=== PATIENT | male | born 2000 | race Caucasian/White ===

== ENCOUNTER 2022-06-17 07:57 | Outpatient (CLI) | payer BC, SELFPAY ==
--- OUTSIDE RECORDS SUMMARY | 2022-06-17 07:55 | XMS_ITS | Encounter Summary ---
:2000 Author Organization [facility] Address [address] [place] [address] Care Team Providers Name Role Phone Unavailable Primary Care Provider Unavailable Encounter Details Date Type Department Care Team Description 12/16/2010 Hospital Encounter HX [facility] Minesh Matute M.D. [address] [place], [place] [address] (Wo rk) Social History Tobacco Use Types Packs/Day Years Used Date Smoking Tobacco: Never Assessed Sex Assigned at Date Recorded Not on file documented as of this encounter Plan of Treatment Not on filedocumented as of this encounter Visit Diagnoses Not on filedocumented in this encounter
--- OUTSIDE RECORDS SUMMARY | 2022-06-17 07:55 | XMS_ITS | Encounter Summary ---
:2000 Author Organization [facility] Address [address] [place] [address] Care Team Providers Name Role Phone Unavailable Primary Care Provider Unavailable Encounter Details Date Type Department Care Team Description 08/22/2014 Hospital Encounter HX [facility] Mary Matute M.D. [address] [place], [place] [address] (Wo rk) Social History Tobacco Use Types Packs/Day Years Used Date Smoking Tobacco: Never Assessed Sex Assigned at Date Recorded Not on file documented as of this encounter Last Filed Vital Signs Vital Sign Reading Time Taken Comments Blood Pressure - - Pulse - - Temperature - - Respiratory Rate - - Oxygen Saturation - - Inhaled Oxygen Concentration - - Weight 53.5 kg (117 lb 15.1 oz) 08/22/2014 3:10 PM VICE PRESIDENT INVESTOR RELATIONS Height 151 cm (4' 11.45) 08/22/2014 3:10 PM VICE PRESIDENT INVESTOR RELATIONS Body Mass Index 23.46 08/22/2014 3:10 PM VICE PRESIDENT INVESTOR RELATIONS Body Mass Index Percentile 94.04 % 08/22/2014 3:10 PM CS T Growth Chart: CDC (Boys, 2-20 Years) documented in this encounter H&P Notes Milady Matute M.D. - 08/22/2014 2:58 PM CST [id number] CHIEF COMPLAINT/REASON FOR VISIT A 13-year-old well-child check. HISTORY OF PRESENT ILLNESS Tahmina is 13 years old here with his mother today for a checkup. It has been over 3 years since we last saw him and overall he is healthy. Mom voices no concerns. I asked about glasses which he has had in the past. Apparently, he just stopped using them and has not been back to see the eye doctor in a long time. Tahmina does have very dry skin. This is a chronic problem. Mom buys lotion for him, but he does not use it all the time. Teeth are brushed, though not well. He does have an appointment with a dentist coming up later this month. He complains that his teeth hurt when he brushes them. Tahmina likes to be outside, but not when it is cold outside. He is not involved in any extracurricular activities. Mom feels that his diet is healthy. He does not drink much soda. They do not eat out very often. MEDICATIONS None. ALLERGIES No known drug allergies. SYSTEMS REVIEW Positive for that mentioned in the history of present illness and past medical history. All other systems reviewed and were negative. DEVELOPMENT: Pediatric symptom checklist completed today with a normal score of 6. VISION SCREENING: Right eye 20/20, left eye 20/30. HEARING SCREENING: Passed bilaterally. Please see EMR for details. PAST MEDICAL/SURGICAL HISTORY 1. Astigmatism. He had been wearing eyeglasses when I saw him in 2010. 2. Obesity. 3. He has been treated with bronchodilators in the past, but it has been a very long time. SOCIAL HISTORY Lives with his parents and 2 siblings in a nonsmoking home. He is in 6th grade at [employer] and does okay in school. FAMILY HISTORY Thyroid disease on mom's side of the family. Maternal grandfather is . Both grandmothers have diabetes. His sister has asthma. VITAL SIGNS Please see EMR. BMI is at the 94th percentile. PHYSICAL EXAMINATION GENERAL: A 13-year-old male who appears age appropriate. SKIN: Very dry skin all over his body. HEAD: Normocephalic. EYES: Conjunctivae noninjected; sclerae anicteric; lids without ptosis, edema or erythema; extraocular movements intact; pupils equal, round and reactive to light. Symmetric light reflex; normal fundi. ENT: Tympanic membranes betancourt, with good light reflex. Nose clear. Palate is complete. Dentition normal for age. Tonsils small and non-inflamed bilaterally. MOUTH: He has poor dental hygiene noted with some swelling and erythema of the gums especially on the bottom. LYMPH NODES: No significant lymphadenopathy. BREASTS: Mild gynecomastia noted. THYROID: No thyromegaly. PERIPHERAL PULSES: Normal pulses and perfusion. HEART: Regular rate and rhythm. Normal S1 and S2. No murmurs, gallops or rubs. LUNGS: Unlabored respirations; clear breath sounds; no wheezes, crackles, rales, rhonchi or retractions. ABDOMEN: Soft, without organomegaly. Bowel sounds normal. Nontender without rebound. No masses palpable. No distention. GENITALIA: Uncircumcised. Sexual maturity rating 2. SPINE: Straight with no lesions. JOINTS: Full range of motion about all joints. EXTREMITIES: No clubbing, cyanosis or edema. Normal upper and lower extremities. GAIT: No limp. Normal gait. MENTAL: Alert and oriented, in no distress. Appropriate for age. NEUROLOGICAL: Normal reflexes; normal tone; no focal deficits appreciated. Cranial nerves II-XII intact. IMPRESSION/REPORT/PLAN Health maintenance. We did discuss age-appropriate anticipatory guidance and safety issues. [place] received today hepatitis A #2, Tdap booster, Menactra #1, HPV #1 and flu vaccine. I encouraged them to make an appointment to see his eye doctor. He may need glasses again. We also did discuss his weight.He is falling into the overweight range today. I encouraged physical activity and discussed good dietary habits. Annual physical exam is recommended. Milady Matute M.D./cruz Electronically Signed By: MILADY MATUTE MD On: 08/23/2014 11:59 AM Source: [facility] [email or web address] Document Id: [id number] PRESIDENT INVESTOR RELATIONS documented in this encounter Procedure Notes Lisa Baeza L.PRussellNRussell - 08/22/2014 4:22 PM CST Vision Testing Vision Testing Entered On: 08/22/2014 16:22 VICE PRESIDENT INVESTOR RELATIONS Performed On: 08/22/2014 16:22 VICE PRESIDENT INVESTOR RELATIONS by LISA BAEZA LPN Vision Testing Corrective Lenses : None Eye, Right w/o Correction : 20/20 Eye, Left w/o Correction : 20/30 LISA BAEZA LPN - 08/22/2014 16:22 VICE PRESIDENT INVESTOR RELATIONS Source: [facility] POWERCHART Document Id: [id number] VICE PRESIDENT INVESTOR RELATIONS!5 PRESIDENT INVESTOR RELATIONS Lisa Baeza L.P.N. - 08/22/2014 4:21 PM CST Hearing Point of Care Testing - Audiometer Hearing Point of Care Testing - Audiometer Entered On: 08/22/2014 16:22 VICE PRESIDENT INVESTOR RELATIONS Performed On: 08/22/2014 16:21 VICE PRESIDENT INVESTOR RELATIONS by LISA BAEZA LPN Hearing Point of Care Testing - Audiometer Left Ear Hearing POC Test Grid Left Ear 20 db Left Ear 25 db Left Ear 30 db Left Ear 40 db 500 Hz : Response Response Response Response 1000 Hz : Response Response Response Response 2000 Hz : Response Response Response Response 4000 Hz : Response Response Response Response LISA BAEZA LPN - 08/22/2014 16:21 VICE PRESIDENT INVESTOR RELATIONS LISA BAEZA LPN - 08/22/2014 16:21 VICE PRESIDENT INVESTOR RELATIONS LISA BAEZA LPN - 08/22/2014 16:21 VICE PRESIDENT INVESTOR RELATIONS LISA BAEZA LPN - 08/22/2014 16:21 VICE PRESIDENT INVESTOR RELATIONS Right Ear Hearing POC Test Grid Right Ear 20 db Right Ear 25 db Right Ear 30 db Right Ear 40 db 500 Hz : Response Response Response Response 1000 Hz : Response Response Response Response 2000 Hz : Response Response Response Response 4000 Hz : Response Response Response Response LISA BAEZA LPN - 08/22/2014 16:21 VICE PRESIDENT INVESTOR RELATIONS LISA BAEZA LPN - 08/22/2014 16:21 VICE PRESIDENT INVESTOR RELATIONS LISA BAEZA LPN - 08/22/2014 16:21 VICE PRESIDENT INVESTOR RELATIONS LISA BAEZA LPN - 08/22/2014 16:21 VICE PRESIDENT INVESTOR RELATIONS Source: [facility] POWERCHART Document Id: [id number] VICE PRESIDENT INVESTOR RELATIONS!44 PRESIDENT INVESTOR RELATIONS documented in this encounter Miscellaneous Notes Miscellaneous - Milady Matute M.D. - 08/22/2014 3:38 PM CST Ambulatory Patient Summary [address] [id number] Visit Information Name: TAHMINA CORONADO [facility] Number: [id number] Current Date: 08/22/2014 15:38:24 Physicians Attending Provider: MILADY MATUTE MD Primary Care Provider: PCP, RORY TAHMINA CORONADO has been given the following list of follow-up instructions, medication list, and patient education materials: Follow-up Instructions Your Medications Here is a list of your medications. It is important to take your medications as directed. Use a pillbox or chart to help remind you to take your medications. Please let your doctor or nurse know if you have problems taking your medications. Medication/Strength How to Take Indications/Special Instructions/Comments/Notes for Patient Medication Changes/Routing Stop Taking the Following Medications: diphenhydrAMINE (Benadryl 12.5 mg/5 mL oral LIQ) hydrocortisone topical (hydrocortisone topical 2.5% ointment) Medication list as of 08-22-14 15:38 Attention: If you have any medications at home that are not on this list, DO NOT take them until youcontact your provider for clarification. Give a copy of your medication list to your primary care provider. Update your medication list any time medications or doses are changed and carry your medication list at all times in case of emergency. Electronically Signed By: MILADY MATUTE MD Signed On:22-AUG-2014 15:38:21 Your Allergies & Intolerances Substance Reaction Symptoms Category Comments No Known Allergies Drug Your Problem List Problem Status Onset Comments Obesity NOS Active Low vision NOS Active 11/11/2010 Abnormal thyroid function study Active 11/18/2010 Eczema Active 12/19/2010 Your Upcoming Appointments Date Time Location Provider No Appointments found Attention: Contact your local Clinic if further appointment detail needed. Your Goals/Additional instructions: Source: [facility] POWERCHART Document Id: [id number] PRESIDENT INVESTOR RELATIONS Miscellaneous - Milady Matute M.D. - 08/22/2014 3:38 PM CST Ambulatory Discharge Medication List [address] [place] [id number] Visit Information Name: TAHMINA CORONADO [facility] Number: [id number] Visit Date: 08/22/2014 15:38:23 Attending Provider: MILADY MATUTE MD Primary Care Provider: PCP, RORY TAHMINA CORONADO has been given the following list of medications: Your Medications It is important to take your medications as directed. Use a pill box or chart to help remind you to take your medications. Please let your doctor or nurse know if you have problems taking your medications. Medication/Strength How to Take Indications/Special Instructions/Comments/Notes for Patient Medication Changes/Routing Stop Taking the Following Medications: diphenhydrAMINE (Benadryl 12.5 mg/5 mL oral LIQ) hydrocortisone topical (hydrocortisone topical 2.5% ointment) Medication list as of 08-22-14 15:38 Attention: If you have any medications at home that are not on this list, DO NOT take them until youcontact your provider for clarification. Give a copy of your medication list to your primary care provider. Update your medication list any time medications or doses are changed and carry your medication list at all times in case of emergency. Electronically Signed By: MILADY MATUTE MD Signed On:22-AUG-2014 15:38:21 Additional Information: Source: [facility] POWERCHART Document Id: [id number] PRESIDENT INVESTOR RELATIONS Miscellaneous - Lisa Baeza, L.P.N. - 08/22/2014 3:10 PM CST Pediatric Telephone Service Adviser Intake/History Pediatric Telephone Service Adviser Intake/History Entered On: 08/22/2014 15:13 VICE PRESIDENT INVESTOR RELATIONS Performed On: 08/22/2014 15:10 VICE PRESIDENT INVESTOR RELATIONS by LISA BAEZA LPN Intake Chief Complaint : well child Temperature Core : 36.1 DegC(Converted to: 97.0 DegF) (LOW) Peripheral Pulse Rate : 80 /min Respiratory Rate : 12 /min (<LLOW) Heart Rhythm : Regular Systolic Blood Pressure : 128 mmHg Diastolic Blood Pressure : 70 mmHg NIBP Mean : 89 mmHg BP Location : Left upper extremity Blood Pressure Cuff Size : Regular Height : 151 cm(Converted to: 4 ft 11 inch(es), 59 inch(es)) Actual Weight : 53.5 kg(Converted to: 117 lb 15 oz) Weight Source : Standing scale Dosing Weight Clinic : 53.5 kg Clinic BSA : 1.5 Body Mass Index : 23.46 kg/m2 LISA BAEZA LPN - 08/22/2014 15:10 VICE PRESIDENT INVESTOR RELATIONS General Info Accompanied By : Mother Information Given By : Patient Languages : Liberian, Kyrgyz Is Patient Female and 13-50 no hysterectomy : LISA Durant LPN - 08/22/2014 15:10 VICE PRESIDENT INVESTOR RELATIONS Subjective Pain Symptoms : LISA Durant LPN - 08/22/2014 15:10 VICE PRESIDENT INVESTOR RELATIONS Dependent Habits Tobacco Use/Currently Using : No Exposure to Tobacco Smoke : Care provider denies smoking in home Smoking Status : Never smoker LISA BAEZA LPN - 08/22/2014 15:10 VICE PRESIDENT INVESTOR RELATIONS ID Screen Travel Within Last 21 Days : LISA Durant LPN - 08/22/2014 15:10 VICE PRESIDENT INVESTOR RELATIONS Source: [facility] POWERCHART Document Id: [id number] VICE PRESIDENT INVESTOR RELATIONS!31 PRESIDENT INVESTOR RELATIONS documented in this encounter Plan of Treatment Not on filedocumented as of this encounter Visit Diagnoses Not on filedocumented in this encounter
--- OUTSIDE RECORDS SUMMARY | 2022-06-17 07:55 | XMS_ITS | Encounter Summary ---
:2000 Author Organization [facility] Address [address] [place] [address] Care Team Providers Name Role Phone Unavailable Primary Care Provider Unavailable Encounter Details Date Type Department Care Team Description 07/25/2010 Hospital Encounter [facility] Mary Matute M.D. [address] [place], [place] [address] (Wo rk) Social History Tobacco Use Types Packs/Day Years Used Date Smoking Tobacco: Never Assessed Sex Assigned at Date Recorded Not on file documented as of this encounter Plan of Treatment Not on filedocumented as of this encounter Visit Diagnoses Not on filedocumented in this encounter
--- OUTSIDE RECORDS SUMMARY | 2022-06-17 07:55 | XMS_ITS | Encounter Summary ---
:2000 Author Organization [facility] Address [address] [place] [address] Care Team Providers Name Role Phone Elsewhere, Pcp Primary Care Provider Unavailable Encounter Details Date Type Department Care Team Description 11/19/2014 Historical Ophthalmology [facility] Wisam Narvaez Jr., M.D. [address] [place], [place] [phone] (Wo rk) Social History Tobacco Use Types Packs/Day Years Used Date Smoking Tobacco: Never Assessed Sex Assigned at Date Recorded Not on file documented as of this encounter Progress Notes Wisam Narvaez M.D. - 11/19/2014 4:32 PM CST Eye General CHIEF COMPLAINT Complete Exam HISTORY OF PRESENT ILLNESS Pt states about 2 months ago he noticed that his VA in his right eye is blurry when looking at things in the distance. ROS good general health- heart and lungs WNL IMPRESSION / REPORT / PLAN A) hyperopia, mild, excellent vision, no need for glasses at this time P) RTo 1-2 years CDM Reports - EYEGEN Id: [id number] Status: Fnl documented in this encounter Plan of Treatment Not on filedocumented as of this encounter Visit Diagnoses Not on filedocumented in this encounter Care Teams Child Welfare Worker Relationship Specialty Start Date End Date Elsewhere, Pcp PCP - General 10/23/19 documented as of this encounter
--- OUTSIDE RECORDS SUMMARY | 2022-06-17 07:55 | XMS_ITS | Encounter Summary ---
:2000 Author Organization [facility] Address [address] [place] [address] Care Team Providers Name Role Phone Marilynn Moore M.D. Primary Care Provider Encounter Details Date Type Department Care Team Description 02/10/2019 Hospital Encounter [facility] Social History Tobacco Use Types Packs/Day Years Used Date Smoking Tobacco: Never Sex Assigned at Date Recorded Not on file documented as of this encounter Plan of Treatment Not on filedocumented as of this encounter Visit Diagnoses Not on filedocumented in this encounter Additional Health Concerns Assessment Noted Time PHQ-9 Depression Total Score: 21 12/04/2016 4:02 PM CS T documented as of this encounter Care Teams Guidance Adviser Relationship Specialty Start Date End Date Marilynn Moore M.D. PCP - General 03/18/17 10/22/19 documented as of this encounter
--- OUTSIDE RECORDS SUMMARY | 2022-06-17 07:55 | XMS_ITS | Encounter Summary ---
:2000 Author Organization [facility] Address [address] [place] [address] Care Team Providers Name Role Phone Unavailable Primary Care Provider Unavailable Encounter Details Date Type Department Care Team Description 11/17/2010 Hospital Encounter HX [facility] Minesh Matute M.D. [address] [place], [place] [address] (Wo rk) Social History Tobacco Use Types Packs/Day Years Used Date Smoking Tobacco: Never Assessed Sex Assigned at Date Recorded Not on file documented as of this encounter Plan of Treatment Not on filedocumented as of this encounter Visit Diagnoses Not on filedocumented in this encounter
--- OUTSIDE RECORDS SUMMARY | 2022-06-17 07:55 | XMS_ITS | Encounter Summary ---
:2000 Author Organization [facility] Address [address] [place] [address] Care Team Providers Name Role Phone Unavailable Primary Care Provider Unavailable Encounter Details Date Type Department Care Team Description 06/03/2015 Hospital Encounter HX [facility] Samantha Santos APRN, C.N.P., M.S.N. [address] [place] [phone] (Wo rk) Social History Tobacco Use Types Packs/Day Years Used Date Smoking Tobacco: Never Assessed Sex Assigned at Date Recorded Not on file documented as of this encounter Last Filed Vital Signs Vital Sign Reading Time Taken Comments Blood Pressure - - Pulse - - Temperature - - Respiratory Rate - - Oxygen Saturation - - Inhaled Oxygen Concentration - - Weight 57.9 kg (127 lb 8.6 oz) 06/03/2015 6:52 PM CDT Height - - Body Mass Index - - documented in this encounter Progress Notes Samantha Santos APRN, [employer] - 06/03/2015 6:34 PM CDT [id number] CHIEF COMPLAINT/REASON FOR VISIT Infected insect bites. HISTORY OF PRESENT ILLNESS A very pleasant 14-year-old male presents with Dad. Per patient, family member came over approximately 2 weeks ago with a dog that had fleas that bit patient on feet and ankles. Since then, the sites have been very itchy and have become red and inflamed and hurt. Mild to moderate pain, burning. Per patient, sister had the same problem and sites were infected worse that his and was taken to the doctorand she was prescribed antibiotics. Dad is concerned that his son may need the same treatment. Denies any fever, chills, headache, neck pain, chest pain, shortness of breath, abdominal pain, nausea, vomiting, diarrhea. Severe skin redness with edema, exudate, hardness, and warmth. MEDICATIONS Reviewed. ALLERGIES Reviewed. PAST MEDICAL/SURGICAL HISTORY See EMR. SOCIAL HISTORY The child has never smoked and lives in a nonsmoking home. No drugs. No alcohol. FAMILY HISTORY Noncontributory. VITAL SIGNS Refer to EMR. PHYSICAL EXAMINATION GENERAL: Well-appearing child. No obvious distress. SKIN: Bilateral ankles and feet with scattered healing insect bites. However few are scattered areaswith moderate erythema. No exudate. All are crusting over but are tender to palpation. IMPRESSION/REPORT/PLAN Infected insect bites. Cephalexin 500 mg capsules 3 times a day for 7 days prescribed. Dad will use hydrocortisone cream at home for any itching and will follow up with primary care provider if symptoms do not improve or worsen within the next 5 to 7 days. Strongly encouraged Dad to take patient to emergency room if he did develop high fever 102.7 or greater, with worsening symptoms of the skin such as severe redness, edema, hardness, warmth, exudate from the sites with chills, headache, neck pain, chest pain, shortness of breath, abdominal pain, nausea, vomiting, or diarrhea and Dad verbalized good understanding of all these instructions. Scot Anne -C./cruz Electronically Signed By: SAMANTHA SANTOS CNP On: 06/04/2015 03:07 PM Source: [facility] MHSDOLBEYNONRADSYS Document Id: [id number] documented in this encounter Nursing Notes Samantha Santos APRN, CNP - 06/03/2015 7:27 PM CDT Ambulatory Patient Education The following Patient Education Materials have been given to the patient: Patient Education Materials: ED/Trauma Insect Bites and Stings ED/Trauma Insect Bites and Stings Most insect bites are harmless and cause only minor swelling or itching. But if youre allergic to insects such as wasps or bees, a sting can cause a life- threatening allergic reaction. The venom (poison) from scorpions and certain spiders can also be deadly, although this is rare. Knowing when to seekemergency care could save your life. The black (top) and brown recluse (bottom) are two poisonous spiders found in the [place]. When to Go to the Emergency Room (ER) Call 911 immediately for any: ?? Scorpion sting. ?? Bite from a black, red, or brown spider or brown recluse spider. ?? Signs of an allergic reaction. These include: hives; swelling of your eyes, lips, or the inside of your throat; trouble breathing; and dizziness or confusion. What to Expect in the ER ?? If youre having trouble breathing, youll be given oxygen through a mask. In case of severe breathing difficulty, you may have a tube inserted in your throat and be placed on a ventilator (breathing machine). ?? If you are having a severe allergic reaction from a sting (called anaphylaxis), you may be given a shot of epinephrine. If it is known that you are allergic to bee or wasp stings, your doctor may give you a prescription for an epi-pen that you can keep with you at all times in case of a sting. ?? You may receive antivenin (a substance that reverses the effects of poison) for some spider bitesand scorpion stings. Because antivenin can sometimes cause other problems, your doctor will weigh the risks and benefits of this treatment. ?? Steroids such as prednisone are often used to treat allergic reactions. In many cases, your doctor will prescribe an antihistamine to help relieve itching. Easing symptoms of an insect bite Try to remove a stinger you can see. Use your fingernail, a knife edge, or credit card to scrape against the skin. Do not squeeze or pull. Apply ice or a cold compressto reduce pain and swelling (keep a thin cloth between the cold source and the skin). ?? [id number] Samantha Fischer, [address] [place] [address], [place] [address]. All rights reserved. This information is not intended as a substitute for professional medical care. Always follow your healthcare professional's instructions. This document has images extracted. Please consider using [employer] for all your patient education needs. Source: [facility] POWERCHART Document Id: [id number] Samantha Santos APRN, CNP - 06/03/2015 7:27 PM CDT Ambulatory Patient Education The following Patient Education Materials have been given to the patient: Patient Education Materials: Source: [facility] POWERCHART Document Id: [id number] documented in this encounter Miscellaneous Notes Miscellaneous - Samantha Santos APRN, CNP - 06/03/2015 7:27 PM CDT Ambulatory Patient Summary [facility] [address] [place], [place] [phone] Visit Information Name: SINABEBETAHMINA [facility] Number: [id number] Current Date: 06/03/2015 19:27:48 Physicians Attending Provider: SAMANTHA SANTOS CNP Primary Care Provider: PCP, ELSEWHERE TAHMINA CORONADO has been given the following list of follow-up instructions, medication list, and patient education materials: Follow-up Instructions With: Address: When: Follow up with PCP in 7-10 days for recheck or sooner if needed. Please go to ER if you develop highfever, chills, body aches, nausea, vomiting, diarrhea, abdominal pain, chest pain or shortness of breath. Your Medications Here is a list of your medications. It is important to take your medications as directed. Use a pillbox or chart to help remind you to take your medications. Please let your doctor or nurse know if you have problems taking your medications. Medication/Strength How to Take Indications/Special Instructions/Comments/Notes for Patient Medication Changes/Routing cephalexin (cephalexin 500 mg oral capsule) 1 cap, Oral, three times a day x 7 day(s) New Routed to [facility] [address] [place], [place] [id number] Stop Taking the Following Medications: Medication list as of 06-03-15 19:27 Attention: If you have any medications at home that are not on this list, DO NOT take them until youcontact your provider for clarification. Give a copy of your medication list to your primary care provider. Update your medication list any time medications or doses are changed and carry your medication list at all times in case of emergency. Electronically Signed By: Signed On: Your Allergies & Intolerances Substance Reaction Symptoms Category Comments No Known Allergies Drug Your Problem List Problem Status Onset Comments Obesity NOS Active Low vision NOS Active 11/11/2010 Abnormal thyroid function study Active 11/18/2010 Eczema Active 12/19/2010 Your Upcoming Appointments Date Time Location Provider No Appointments found Attention: Contact your local Clinic if further appointment detail needed. Insect Bites and Stings Most insect bites are harmless and cause only minor swelling or itching. But if youre allergic to insects such as wasps or bees, a sting can cause a life- threatening allergic reaction. The venom (poison) from scorpions and certain spiders can also be deadly, although this is rare. Knowing when to seekemergency care could save your life. The black (top) and brown recluse (bottom) are two poisonous spiders found in the [place]. When to Go to the Emergency Room (ER) Call 911 immediately for any: ?? Scorpion sting. ?? Bite from a black, red, or brown spider or brown recluse spider. ?? Signs of an allergic reaction. These include: hives; swelling of your eyes, lips, or the inside of your throat; trouble breathing; and dizziness or confusion. What to Expect in the ER ?? If youre having trouble breathing, youll be given oxygen through a mask. In case of severe breathing difficulty, you may have a tube inserted in your throat and be placed on a ventilator (breathing machine). ?? If you are having a severe allergic reaction from a sting (called anaphylaxis), you may be given a shot of epinephrine. If it is known that you are allergic to bee or wasp stings, your doctor may give you a prescription for an epi-pen that you can keep with you at all times in case of a sting. ?? You may receive antivenin (a substance that reverses the effects of poison) for some spider bitesand scorpion stings. Because antivenin can sometimes cause other problems, your doctor will weigh the risks and benefits of this treatment. ?? Steroids such as prednisone are often used to treat allergic reactions. In many cases, your doctor will prescribe an antihistamine to help relieve itching. Easing symptoms of an insect bite Try to remove a stinger you can see. Use your fingernail, a knife edge, or credit card to scrape against the skin. Do not squeeze or pull. Apply ice or a cold compressto reduce pain and swelling (keep a thin cloth between the cold source and the skin). ?? [id number] Samantha [facility], [address] [place] [address]. All rights reserved. This information is not intended as a substitute for professional medical care. Always follow your healthcare professional's instructions. Consider Using Patient Online Services Patient Online Services is a secure online and Mobile application that lets you: ?? View lab and test results ?? View portions of your medical record including clinical notes, immunizations and discharge summaries ?? Request an appointment or medication refill ?? Review your appointment schedule ?? Send secure messages to your care team Its easy to create an account if you dont have one. Go to [email or web address] and click on Create Your Account. Then, follow the directions to complete the online form. Youll be asked for your [facility] number which you can find at the top of this document. Your Goals/Additional instructions: This document has images extracted. Please consider using [employer] for all your patient education needs. Source: [facility] POWERCHART Document Id: [id number] Miscellaneous - Samantha Santos APRN, CNP - 06/03/2015 7:27 PM CDT Ambulatory Discharge Medication List [facility] [address] [place], [place] [phone] Visit Information Name: TAHMINA CORONADO [facility] Number: [id number] Visit Date: 06/03/2015 19:27:47 Attending Provider: SAMANTHA SANTOS CNP Primary Care Provider: PCP, ELSEWHERE TAHMINA CORONADO has been given the following list of medications: Your Medications It is important to take your medications as directed. Use a pill box or chart to help remind you to take your medications. Please let your doctor or nurse know if you have problems taking your medications. Medication/Strength How to Take Indications/Special Instructions/Comments/Notes for Patient Medication Changes/Routing cephalexin (cephalexin 500 mg oral capsule) 1 cap, Oral, three times a day x 7 day(s) New Routed to [address] [phone] Stop Taking the Following Medications: Medication list as of 06-03-15 19:27 Attention: If you have any medications at home that are not on this list, DO NOT take them until youcontact your provider for clarification. Give a copy of your medication list to your primary care provider. Update your medication list any time medications or doses are changed and carry your medication list at all times in case of emergency. Electronically Signed By: Signed On: Additional Information: Source: [facility] Document Id: [id number] Miscellaneous - Julieta Scanlon C.M.ARussell - 06/03/2015 6:55 PM CDT Ambulatory Vitals Height Weight Ambulatory Vitals Height Weight Entered On: 06/03/2015 18:56 CDT Performed On: 06/03/2015 18:55 CDT by JULIETA SCANLON [facility] Vitals/Ht/Wt Systolic Blood Pressure : 135 mmHg (>HHI) Diastolic Blood Pressure : 73 mmHg NIBP Mean : 94 mmHg BP Location : Right upper extremity Blood Pressure Cuff Size : Regular JULIETA SCANLON CMA - 06/03/2015 18:55 CDT Source: [facility] Document Id: [id number] CDT!7 Miscellaneous - Julieta Scanlon C.M.A. - 06/03/2015 6:52 PM CDT Pediatric Director Online Marketing Intake/History Pediatric Director Online Marketing Intake/History Entered On: 06/03/2015 18:54 CDT Performed On: 06/03/2015 18:52 CDT by JULIETA SCANLON [facility] Intake Chief Complaint : bug/flea bites on legs and ankles Onset of Symptoms : x 2 weeks Peripheral Pulse Rate : 128 /min (HI) Systolic Blood Pressure : 133 mmHg (>HHI) Diastolic Blood Pressure : 99 mmHg (>HHI) NIBP Mean : 110 mmHg BP Location : Right upper extremity Blood Pressure Cuff Size : Regular Actual Weight : 57.85 kg(Converted to: 127 lb 9 oz) Weight Source : Standing scale Dosing Weight Clinic : 57.85 kg JULIETA SCANLON CMA - 06/03/2015 18:52 CDT General Info Languages : Trinidadian, Kinyarwanda Is Patient Female and 13-50 no hysterectomy : No JULIETA SCANLON CMA - 06/03/2015 18:52 CDT Subjective Pain Symptoms : No JULIETA SCANLON CMA - 06/03/2015 18:52 CDT Dependent Habits Tobacco Use/Currently Using : No Exposure to Tobacco Smoke : Care provider denies smoking in home Smoking Status : Never smoker JULIETA SCANLON CMA - 06/03/2015 18:52 CDT Source: [facility] Document Id: [id number] CDT!22 documented in this encounter Plan of Treatment Not on filedocumented as of this encounter Visit Diagnoses Not on filedocumented in this encounter
--- OUTSIDE RECORDS SUMMARY | 2022-06-17 07:55 | XMS_ITS | Clinical Summary ---
:2002 Author Organization [facility] [place] [address] Care Team Providers Name Role Phone Ele Matute MD Unavailable Zachery Mathews MD Primary Care Provider Berta Suarez NP Unavailable Unavailable Allergies Active Allergy Reactions Severity Noted Date Comments Lurasidone Anaphylaxis High 02/18/[address], SHORTNESS OF BREATH, unable to talk, swelling of lips (no docume ntation yet of ER visit) Medications Medication Sig Dispensed Refills Start End Status Date Date benztropine Take 1 Tablet (1 60 Tablet 2 03/20/20 A ctive (COGENTIN) 1 mg mg) by mouth in 22 tabletIndications: the morning and Pain in extremity, 1 Tablet (1 mg) unspecified in the evening. extremity, Abnormal increased muscle tone, Generalized stiffness hydrOXYzine pamoate Take 1 Capsule 90 Capsule 2 03/20/20 Active (VistariL) 50 mg (50 mg) by mouth 22 capsuleIndications: 3 times daily if Anxiety needed for Anxiety. melatonin 5 mg tab Take 1 Tablet (5 30 Tablet 2 03/20/20 Active tabletIndications: mg) by mouth at 22 Schizophrenia, bedtime if undifferentiated needed, may (HC) repeat once for Sleep. sertraline (ZOLOFT) Take 1 Tablet 30 Tablet 2 04/19/20 Active 50 mg (50 mg) by mouth 22 tabletIndications: once daily. Anxiety disorder, unspecified type, Severe episode of recurrent major depressive disorder, with psychotic features (HC) paliperidone Inject 234 mg 1 Each 2 05/22/20 Act sweetie palmitate (INVEGA intramuscular 22 SUSTENNA) 234 mg/1.5 every 3 weeks. mL intramuscular syringeIndications: Schizophrenia, undifferentiated (HC) paliperidone Inject 234 mg 1 Each 2 04/19/20 Dis continued palmitate (INVEGA intramuscular 22 022 (Reorder SUSTENNA) 234 mg/1.5 every 3 weeks. 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 Depression 11/18/2016 Encounters Date Type Specialty Care Team Description 05/22/2022 Telemedicine Ugo Thomason Ma, MBBS (Virtual Visi t) 04/17/2022 Office Visit Ugo Thomason Ma, MBBS 04/17/2022 Travel 03/20/2022 Office Visit Ugo Thomason Ma, MBBS 03/20/2022 Travel from Last 3 Months Immunizations Name Administration Dates Next Due DTaP 01/10/2008, 03/10/2004 [id number] (Pediarix) 05/25/2003, 03/19/2003, 2002 HIB PRP-OMP (PedvaxHIB) 05/25/2003 HIB PRP-T (ActHIB,Hiberix) 03/19/2003, 2002 HPV 9 (Gardasil 9) 2015 Hepatitis A (Peds) 08/22/2014, 11/10/2010 Hepatitis B (Peds) 2002 Human Papilloma Virus Vaccine 2015, 08/22/2014 Inactivated Polio Vaccine 01/10/2008, 05/25/2003, 03/19/2003 , 2002 Influenza A (H1N1), Inactivated (Age 0211/28/2009 >=3 Years) Influenza, IIV3 (Age >=3 years) 07/04/2016, 2015, 08/04, 07/25/2010, 11/28/2009, 07/23/2009 Influenza,LAIV4 Live Intranasal 07/18/2013 (Flumist) MMR 01/10/2008, 12/28/2003 Meningococcal B 01/09/2019 Meningococcal Vaccine (Menactra) 08/22/2014 Pneumococcal conj 7-Valent (Prevnar 7) 05/25/2003, 3 Tdap 08/22/2014 Varicella Vaccine 01/10/2008, 12/28/2003 Family History Medical History Relation Name Comments Asthma Maternal Aunt aunt Diabetes Maternal Grandmother Diabetes Maternal Uncle x2 Relation Name Status Comments Maternal Aunt Maternal Grandmother Maternal Uncle Social History Tobacco Use Types Packs/Day Years Used Date Never Smoker Smokeless Tobacco: Never Used Tobacco Cessation: Counseling Given: No Alcohol Use Standard Drinks/Week Comments No 0 (1 standard drink = 0.6 oz pure alcoho l) Sex Assigned at Date Recorded Not on file Obstetrics History Last Filed Vital Signs Vital Sign Reading Time Taken Comments Blood Pressure 100/66 04/17/2022 11:10 AM CDT Pulse 20 04/17/2022 11:10 AM CDT Temperature 36.1 ??C (96.9 ??F) 03/12/2022 1:20 AM CDT Respiratory Rate 20 04/17/2022 11:10 AM CDT Oxygen Saturation 100% 03/12/2022 8:00 AM CDT Inhaled Oxygen Concentration - - Weight 88.5 kg (195 lb) 04/17/2022 11:10 AM CDT Height 172.7 cm (5' 8) 03/12/2022 1:20 AM CDT Body Mass Index - - Plan of Treatment Upcoming Encounters Date Type Specialty Care Team Description 06/23/2022 Telemedicine Ugo Thomason MBBS [address] [place], [place] [address] (Wo rk) Health Maintenance Due Date Last Done Comments COVID-19 vaccine series (#1) 04/23/2003 Well Child Check for age 0111/01/2007 11/01/2006 3-20 BMI (ht and wt on same day) 2020 for age 18+ Hepatitis C screening for 2020 age 18-79 Influenza for age 9-49 06/04/2022 07/04/2016, 2015, 08/22/2014, Additional history exists Depression screening for age 0603/10/2023 03/10/2022, 022, 12+ 03/06/2022, Additional history exists Tetanus booster 08/22/2024 08/22/2014 Meningococcal series for age Aged Out 08/22/2014 No longer eligible - based on patient 's age to complete this topic Tdap Completed 08/22/2014 HPV series for age 9-26 Completed 2015, 2015, 08/22/2014 Results Not on filefrom Last 3 Months Insurance Payer Benefit Plan / Subscriber ID Effective Dates Phone Addre ss Type Group [place] [id number] 2014-Present [address] [place] [address] [employer] [place] [employer] [id number] 2018-Present [address] [address] [place] [address] [place] [id number] 2014-Present [address] [address] [place] [address] (Home) [place] [address] MARIE CORONADO Personal/Family Mother [phone] [address] (Home) [address] [place] [address] Advance Directives Latest Code Status on File Code Status Date Activated Date Inactivated Comments Full Code 01/20/2022 8:36 PM 03/04/2022 11:21 AM Code Status Discussion: Other Care Teams Judicial Law Clerk Relationship Specialty Start Date End Date Zachery Mathews MD PCP - General Family Practice 12/28/16 [address] [facility] [place] [address] Ele Matute MD 05/03/14 Berta Suarez, EFRAIN Psychiatry Nurse Practitioner 01/18/17
--- OUTSIDE RECORDS SUMMARY | 2022-06-17 07:55 | XMS_ITS | Encounter Summary ---
:2000 Author Organization [facility] Address [address] [place] [address] Care Team Providers Name Role Phone Unavailable Primary Care Provider Unavailable Encounter Details Date Type Department Care Team Description 12/01/[address] [facility] Mary Matute M.D. [address] [place], [place] [address] (Wo rk) Social History Tobacco [...] - Inhaled Oxygen Concentration - - Weight 36.8 kg (81 lb 2.1 oz) 12/01/2010 3:18 PM HANGING FLAGS DECORATOR Height - - Body Mass Index - - documented in this encounter Progress Notes Milady Matute M.D. - 12/01/2010 12:00 AM CST [id number] CHIEF COMPLAINT/ REASON FOR VISIT Suture removal HISTORY OF PRESENT ILLNESS Rigby 10 years old and here with his mother, sister and janitorial cleaner, Yudi. He presented to the Emergency Department on 11/20 after cutting his finger at home. He caught it on a piece of metal at the side of a door. It bled initially quite a bit. There is no other injury. In the Emergency Department, four sutures were placed. There has been no problem with the laceration since then. CURRENT MEDICATIONS None ALLERGIES No known drug allergies. VITAL SIGNS WEIGHT: 36.8 kg TEMPERATURE: 36.6 HEART RATE: 88 RESPIRATORY RATE: 22 BLOOD PRESSURE: 94/56 PHYSICAL EXAM GENERAL: Comfortable, in no distress. EXTREMITIES: Well approximated 1 1/2 cm laceration with four intact interrupted sutures at the base of left index finger. IMPRESSION/REPORT/PLAN Suture removal. Sutures were removed easily and patient tolerated the procedure well. There is some mild scar tissue formation, but there are no signs of infection and tetanus is up-to-date. Return as needed. KSL/glt Signed Milady Matute M.D. Electronic Component Processor Electronically Signed By: MILADY MATUTE MD On: 12/04/2010 09:48 Source: [facility] MHSDOLBEYNONRADSYS Document Id: [id number] ING FLAGS DECORATOR documented in this encounter Miscellaneous Notes Miscellaneous - Milady Matute M.D. - 12/01/2010 3:39 PM CST Ambulatory Patient Summary [address] [address] Visit Information Name: TAHMINA CORONADO Current Date: 12/01/2010 15:39:23 Primary Care Provider: MILADY MATUTE MD [id number] Your Medications Here is a list of your medications. It is important to take your medications as directed. Use a pillbox or chart to help remind you to take your medications. Please let your doctor or nurse know if you have problems taking your medications. Medication/Strength Dose Route Frequency Indications/Special Instructions/Comments diphenhydrAMINE (Benadryl 12.5 mg/5 mL oral LIQ) 10 mL Oral three times a day as needed for Rash Your Allergies & Intolerances Substance Reaction Symptoms Category Comments NKA Drug Your Problem List Problem Status Onset Comments Obesity NOS Active Low vision NOS Active 11/11/2010 Abnormal thyroid function study Active 11/18/2010 Your Recommendations We want to make sure you get the tests, immunizations, and guidance you need to stay healthy. Here is a customized list of recommendations, based on information we have in your medical record. Your doctor may have additional recommendations for you, based on your personal medical history and risk factors. You can help us by calling us to make an appointment when you are due for your tests. Additional information regarding recommendations: Test/Treatment Last Done Next Due Additional Information No Health Maintenance records were found Your Upcoming Appointments Date Time Location Reason Provider 12/16/2010 16:15 [facility] Lab Your Goals/Additional instructions: Source: [facility] POWERCHART Document Id: [id number] Miscellaneous - Poppy Evans - 12/01/2010 3:18 PM CST Pediatric Rn Field Case Manager Intake/History Pediatric Rn Field Case Manager Intake/History Entered On: 12/01/2010 15:19 HANGING FLAGS DECORATOR Performed On: 12/01/2010 15:18 HANGING FLAGS DECORATOR by POPPY REIS Intake Ambulatory Intake Additional Information: L index at base, 4 stitches. 1 1/2 cm MILADY MATUTE MD - 12/01/2010 15:28 HANGING FLAGS DECORATOR Chief Complaint: stitch removal Temperature Core: 36.6C(Converted to: 97.9DegF) Apical Heart Rate: 88/min Respiratory Rate: 22/min Systolic Blood Pressure: 94mmHg Diastolic Blood Pressure: 56mmHg NIBP Mean: 69mmHg BP Location: Right upper extremity Actual Weight: 36.800kg(Converted to: 81lb 2oz) Dosing Weight Clinic: 36.80kg POPPY REIS - 12/01/2010 15:18 HANGING FLAGS DECORATOR Subjective Pain Symptoms: No POPPY RIES - 12/01/2010 15:18 HANGING FLAGS DECORATOR Dependent Habits Tobacco Use/Currently Using: No POPPY REIS - 12/01/2010 15:18 HANGING FLAGS DECORATOR Allergy Allergies (Active) NKA Estimated Onset Date: Unspecified ; Created By: POPPY REIS; Reaction Status: Active ; Category: Drug ; Substance: NKA ; Type: Allergy ; Updated By: POPPY REIS; Reviewed Date: 11/10/201016:21 HANGING FLAGS DECORATOR [facility] POWER[facility] Document Id: [id number] HANGING FLAGS DECORATOR!3 ING FLAGS DECORATOR documented in this encounter Plan of Treatment Not on filedocumented as of this encounter Visit Diagnoses Not on filedocumented in this encounter
--- OUTSIDE RECORDS SUMMARY | 2022-06-17 07:55 | XMS_ITS | Encounter Summary ---
:2000 Author Organization [facility] Address [address] [place] [address] Care Team Providers Name Role Phone Unavailable Primary Care Provider Unavailable Encounter Details Date Type Department Care Team Description 05/02/2010 Hospital Encounter [facility]X [facility] Mary Matute M.D. [address] [place], [place] [address] (Wo rk) Social History Tobacco Use Types Packs/Day Years Used Date Smoking Tobacco: Never Assessed Sex Assigned at Date Recorded Not on file documented as of this encounter Plan of Treatment Not on filedocumented as of this encounter Visit Diagnoses Not on filedocumented in this encounter
--- OUTSIDE RECORDS SUMMARY | 2022-06-17 07:55 | XMS_ITS | Clinical Summary ---
:2002 Author Organization [facility] Address [address] [place] [address] Care Team Providers Name Role Phone Elsewhere, Pcp Primary Care Provider Unavailable Source Comments Patient records contain information from all sites at [facility]. For routine questions regarding patient records, call [phone] during business hours, M-F 8:00 AM - 5:00 PM Central Time. Record requests for emergency care only can be directed to [phone] at any time.[facility] Immunizations Name Administration Dates Next Due 4vHPV (discontinued) 2015, 08/22/2014 DTaP (Infanrix, [employer]edia) 01/10/2008, 03/10/2004, 05/25/2003 , 03/19/2003, 2002 H1N1 All Forms 11/28/2009 HepA Pediatric/Adolescent 08/22/2014, 11/10/2010 HepB, Unspecified 05/25/2003, 03/19/2003, 2002, 10/05 Hib (PRP-OMP) (PedvaxHIB) 05/25/2003, 03/19/2003, 2002 IPV 01/10/2008, 05/25/2003, 03/19/2003, 12/03 Influenza, Unspecified 2015, 08/22/2014, 07/25/2010, 0 11/28/2009, 07/23/2009 MCV4 (Menactra) 08/22/2014 MMR 01/10/2008, 12/28/2003 PCV7 (discontinued) 05/25/2003, 03/19/2003 Tdap 08/22/2014 NYA 01/10/2008, 12/28/2003 Social History Tobacco Use Types Packs/Day Years Used Date Smoking Tobacco: Never Sex Assigned at Date Recorded Not on file Last Filed Vital Signs Vital Sign Reading Time Taken Comments Blood Pressure - - Pulse - - Temperature - - Respiratory Rate - - Oxygen Saturation - - Inhaled Oxygen Concentration - - Weight 65 kg (143 lb 4.8 oz) 12/04/2016 3:40 PM BOILER REPAIRMAN Height 170.5 cm (5' 7.13) 12/04/2016 3:40 PM BOILER REPAIRMAN Body Mass Index 22.36 12/04/2016 3:40 PM BOILER REPAIRMAN Body Mass Index Percentile 82.98 % 12/04/2016 3:40 PM CS T Growth Chart: [facility] (Boys, 2-20 Years) Plan of Treatment Health Maintenance Due Date Last Done Comments HIV Screening 2002 Hepatitis C Screening 2002 1 week Well Child Check-Up 2002 Well Child Check-Up ([facility]) 2002 1 month Well Child Check-Up 2002 2 month Well Child Check-Up 2002 4 month Well Child Check-Up 01/22/2003 6 month Well Child / 03/24/2003 Alternative Check-Up COVID-19 Vaccine (#1) 04/23/2003 9 month Well Child Check-Up 06/24/2003 12 month Well Child / 09/23/2003 Alternative Check-Up 15 month Well Child Check-Up 12/23/2003 18 month Well Child 03/24/2004 2 year Well Child Check-Up 09/23/2004 30 month Well Child Check-Up 03/24/2005 3 year Well Child Check-Up 09/23/2005 4 year Well Child Check-Up 09/23/2006 5 year Well Child Check-Up 09/23/2007 6 year Well Child Check-Up 09/23/2008 9 year Well Child / 09/23/2009 Alternative Check-Up 10 year Well Child Check-Up 09/23/2010 9 year Well Child / 09/23/2011 Alternative Check-Up 10 year Well Child Check-Up 09/23/2012 11 year Well Child Check-Up 09/23/2013 12 year Well Child Check-Up 09/23/2014 15 year Well Child Check-Up 09/23/2015 14 year Well Child Check-Up 09/23/2016 17 year Well Child Check-Up 09/23/2017 18 year Well Child Check-Up 09/23/2018 Vision Screening during Well 11/19/2018 11/19/2014 Child Visit 19 year Well Child Check-Up 09/23/2019 18 year Well Child Check-Up 09/23/2020 21 year Well Child Check-Up 09/23/2021 Depression Screening (Annual 10/04/2021 PHQ-2) Influenza Vaccine (#1) 2022 07/04/2016, 07/04/2016, 2015, Additional history exists DTaP,Tdap,and Td Vaccines (7 08/22/2024 08/22/2014, 008, - Td or Tdap) 03/10/2004, Additional history exists Hepatitis B Vaccines Completed 05/25/2003, 05/25/2003, 03/19/2003, Additional history exists Pneumococcal vaccine (0-64 Aged Out 05/25/2003, 3 No longer eligible years) based on patient 's age to complete this topic MMR Vaccines Completed 01/10/2008, 12/28/2003 Varicella Vaccines Completed 01/10/2008, 12/28/2003 Meningococcal Vaccine Aged Out 08/22/2014 No longer eligible based on patient 's age to complete this topic HPV Vaccines Completed 2015, 2015, 08/22/2014 Insurance Payer Benefit Plan Subscriber ID Effective Phone Address Typ e / Group Dates [employer] BLUE [id number] 2019-Prese ATTN: Ashley oconnor O BLUE SHIELD PLUS HMO nt [facility] [address] [address] [place] [address] [employer] [facility] BLUE [id number] 2016-Prese [address] [address] Medicaid [place] [address] Care Teams Pumping Plant Operator Relationship Specialty Start Date End Date Elsewhere, Pcp PCP - General 10/23/19
--- OUTSIDE RECORDS SUMMARY | 2022-06-17 07:55 | XMS_ITS | Encounter Summary ---
:2002 Author Organization [facility] Address [address] [place] [address] Care Team Providers Name Role Phone Elsewhere, Pcp Primary Care Provider Unavailable Reason for Visit Reason Comments Allergic Reaction Encounter Details Date Type Department Care Team Description 01/11/2021 - Emergency [facility] Rash (Primary Dx); 01/12/2021 [address] [facility] [place] [address] [facility] [phone] Social History Tobacco Use Types Packs/Day Years Used Date Smoking Tobacco: Never Sex Assigned at Date Recorded Not on file documented as of this encounter Plan of Treatment Not on filedocumented as of this encounter Visit Diagnoses Diagnosis Rash - Primary Anxiety documented in this encounter Additional Health Concerns Assessment Noted Time PHQ-9 Depression Total Score: 21 12/04/2016 4:02 PM CS T documented as of this encounter Care Teams Staffing Coordinator Relationship Specialty Start Date End Date Elsewhere, Pcp PCP - General 10/23/19 documented as of this encounter
--- OUTSIDE RECORDS SUMMARY | 2022-06-17 07:55 | XMS_ITS | Encounter Summary ---
:2002 Author Organization [facility] Address [address] [place] [address] Care Team Providers Name Role Phone Unavailable Primary Care Provider Unavailable Encounter Details Date Type Department Care Team Description 01/21/2010 Hospital Encounter [facility]X [facility] Mary Matute M.D. [address] [place], [place] [address] (Wo rk) Social History Tobacco [...] - Inhaled Oxygen Concentration - - Weight 33 kg (72 lb 12 oz) 01/21/2010 4:12 PM CDT Height - - Body Mass Index - - documented in this encounter Progress Notes Milady Matute M.D. - 01/21/2010 12:00 AM CDT [id number] IMPRESSION/REPORT/PLAN 1. Rash. He has very dry skin and evidence of some mild eczematous type lesions especially on the belly. We reviewed good basic skin care and I did prescribe Hydrocortisone 1% cream. Some of the papular lesions he currently has could be small urticaria vs. dry skin lesions. Also granted prescription for Benadryl since that seems to be helping. He can receive that at night. I would expect the rash to improve over the next 1-2 weeks and if not, he should return for re-evaluation. CHIEF COMPLAINT/REASON FOR VISIT Rash HISTORY OF PRESENT ILLNESS 9-year-old male here today with his mother and sound system installer, Basil. Over the past week, he has had a rash which usually comes on and worsens in the evening just before bedtime. The rash is present over his trunk and also on his arms, somewhat on his face. Initially, the rash is described as raised large bumps several inches in diameter. He has been given Benadryl at night which seems to help. Also, Calamine lotion has been used. The rash is very itchy, but by morning it is nearly gone. Currently, he doesn't have much of the rash. He has not had any recent cough or cold symptoms and is otherwise doing well. CURRENT MEDICATIONS Post-visit Medication Reconciliation 1. Benadryl 12.5 mg. per 5 ml., 10 ml. PO p.r.n. rash. 2. Hydrocortisone 1% topical cream applied to dry skin rash b.i.d. p.r.n. ALLERGIES No known drug allergies. VITAL SIGNS DATE/TIME 01-21-10 WEIGHT 33.0 kg TEMPERATURE 36.6 degreesC RESP RATE 20 / min PULSE 74 SYSTOLIC 90 DIASTOLIC 54 PHYSICAL EXAM AREA EXAM TEXT GENERAL Comfortable and in no distress. SKIN Overall skin is very dry. He has even dryer patches around the abdomen with signs of excoriation. The back of the neck and a little on his upper abdomen shows pink raised papules poorly defined and dry appearing, 1/2 cm. in diameter. Legs have very dry skin, otherwise free of rash. Face is free of rash. EYES No injection or drainage. ENT Ears: Tympanic membranes flat and pearly with good light reflex. No fluid bilaterally. Nose without rhinorrhea, clear. Mouth: Moist mucous membranes. Posterior pharynx is pink. Tonsils small and not inflamed. No intraoral lesions. HEART Regular rate and rhythm. S1 and S2 without murmurs. LUNGS Clear to auscultation bilaterally. No wheezes or crackles. ABDOMEN Soft, nontender. Nondistended. No hepatosplenomegaly or masses. KSL/sks Signed Milady Matute M.D. Radon Inspector Electronically Signed By:MILADY MATUTE MD On 01/30/2010 08:54 am Modified by:MILADY MATUTE MD On 01/30/2010 08:54 am Source: [facility] MHSDOLBEYNONRADSYS Document Id: [id number] documented in this encounter Miscellaneous Notes Miscellaneous - JoonPoppy holman - 01/21/2010 4:12 PM CDT Pediatric Board Setter Intake/History Pediatric Board Setter Intake/History Entered On: 01/21/2010 16:14 CDT Performed On: 01/21/2010 16:12 CDT by POPPY REIS Intake Ambulatory Intake Additional Information: no rash now. big red bumps few inches diameter. calamine. no recent cold some bumps and dry rash , back of neck and belly. very dry skin MILADY MATUTE MD - 01/21/2010 16:16 CDT Chief Complaint: rash over body, especially on the face, around bed time x 1 week; gives him OTC benadryl and rash is gone in the morning; c/o itching Temperature Core: 36.6DegC(Converted to: 97.9DegF) Apical Heart Rate: 74bpm Respiratory Rate: 20br/min Systolic Blood Pressure: 90mmHg (<LLOW) Diastolic Blood Pressure: 54mmHg NIBP Mean: 66mmHg BP Reading Side: Right upper extremity Actual Weight: 33.000kg(Converted to: 72lb 12oz, 72.753lb, 1,164.041oz) Dosing Weight Clinic: 33.00kg POPPY REIS - 01/21/2010 16:12 CDT Subjective Pain Symptoms: No POPPY ERIS - 01/21/2010 16:12 CDT Dependent Habits Tobacco Use/Currently Using: No Alcohol Use: No POPPY REIS - 01/21/2010 16:12 CDT Allergy Allergies (Active) NKA Estimated Onset Date: Unspecified ; Created By: POPPY REIS; Reaction Status: Active ; Category: Drug ; Substance: NKA ; Type: Allergy ; Updated By: POPPY REIS; Reviewed Date: 01/21/201016:14 CDT Source: [facility] [employer] Document Id: [id number] CDT!3 documented in this encounter Plan of Treatment Not on filedocumented as of this encounter Visit Diagnoses Not on filedocumented in this encounter
--- OUTSIDE RECORDS SUMMARY | 2022-06-17 07:55 | XMS_ITS | Encounter Summary ---
:2000 Author Organization [facility] Address [address] [place] [address] Care Team Providers Name Role Phone Unavailable Primary Care Provider Unavailable Encounter Details Date Type Department Care Team Description 11/10/[address] [facility] Mary Matute M.D. [address] [place], [place] [address] (Wo rk) Social History Tobacco [...] - Inhaled Oxygen Concentration - - Weight 37.5 kg (82 lb 10.8 oz) 11/10/2010 4:21 PM PROCUREMENT CONSULTANT Height 132.5 cm (4' 4.17) 11/10/2010 4:21 PM PROCUREMENT CONSULTANT Body Mass Index 21.36 11/10/2010 4:21 PM PROCUREMENT CONSULTANT Body Mass Index Percentile 97.14 % 11/10/2010 4:21 PM CS T Growth Chart: CDC (Boys, 2-20 Years) documented in this encounter H&P Notes Milady Matute M.D. - 11/10/2010 12:00 AM CST [id number] CHIEF COMPLAINT/ REASON FOR VISIT 10-year-old well-child visit. HISTORY OF PRESENT ILLNESS Kodi is 10 years old and here with his mother and color stripper, Yudi, for a checkup. Mother wonders about some darker spots on his skin. He will have a dry spot and it will turn to a darker pigmentation. He puts lotion on those spots occasionally. He does tend to have quite dry skin. Also concerned about his weight. We did review his growth today and BMI is higher than we would like. We discussed diet today. Kodi is himself worried about his weight and eats salads at school because of this. However, he comes home quite hungry and then will fill up on ham sandwiches with mayonnaise. He likes cookies. He does not get much juice and very little, if any, soda. They do not eat out much. They have 2% milk at home. He is quite sedentary. Not involved in any physical activity. He does tend to watch quite a bit of television. No problems with sleep. He does visit a dentist regularly, but he does not like to brush his teeth. Mother is constantly reminding him to do that. CURRENT MEDICATIONS None ALLERGIES No known drug allergies. SYSTEMS REVIEW As mentioned in the history of present illness and past medical history. All other systems were reviewed and were negative. VISION SCREENING Eyeglasses not brought along today. Right eye 20/30, left eye 20/40. HEARING SCREENING Passed down to 20 dB bilaterally for all frequencies tested. PAST MEDICAL/SURGICAL HISTORY 1. He has eyeglasses and astigmatism. He is due for a followup eye exam next month. 2. Obesity 3. He has been treated with bronchodilators in the past, has not used any of this type of medication for 2 years. This is at the moment a resolved issue. No previous surgeries. SOCIAL HISTORY He lives with his parents and two siblings in a nonsmoking environment. FAMILY HISTORY There is thyroid disease on mom's side of the family. Maternal grandfather is . Paternal grandmother with diabetes. Maternal grandmother with diabetes. There is a sister with asthma. VITAL SIGNS HEIGHT: 132.5 cm, 77th percentile WEIGHT: 37.5 kg, 97th percentile BMI: 21.3, 97th percentile TEMPERATURE: 36.5 HEART RATE: 86 RESPIRATORY RATE: 22 BLOOD PRESSURE: 100/60 PHYSICAL EXAM GENERAL: 10-year-old male who appears age appropriate. SKIN: Skin is overall quite dry, especially on the legs. He has poorly demarcated patches of flat hyperpigmentation, one spot just above his right antecub and another near the left wrist. No papules, pustules or active lesions. HEAD: Normocephalic. EYES: Conjunctivae noninjected; sclerae anicteric; lids without ptosis, edema or erythema; extraocular movements intact; pupils equal, round and reactive to light. Symmetric light reflex; normal fundi. ENT: Tympanic membranes betancourt, with good light reflex. Nose clear. Mouth: Poor dental hygiene. Posterior pharynx is pink with small tonsils. LYMPH NODES: No significant lymphadenopathy. THYROID: No thyromegaly. PERIPHERAL VESSELS: Normal pulses and perfusion. HEART: Regular rate and rhythm; normal S1 and S2; no murmurs, gallops or rubs. LUNGS: Unlabored respirations; clear breath sounds; no wheezes, crackles, rales, rhonchi or retractions. ABDOMEN: Soft, without organomegaly. Bowel sounds normal. Nontender without rebound. No masses palpable. No distention. GENITALIA: Normal male genitalia; testes descended bilaterally; no hernia. Rakesh one. SPINE: Straight with no lesions. JOINTS: Full range of motion about all joints. EXTREMITIES: No clubbing, cyanosis or edema. Normal upper and lower extremities. GAIT: No limp. Normal gait. MENTAL: Alert, oriented, in no distress. Appropriate for age. NEURO: Normal reflexes; normal tone; no focal deficits appreciated. Cranial nerves II - XII intact IMPRESSION/REPORT/PLAN 1. Health maintenance. We did discuss age appropriate anticipatory guidance and safety issues. He received hepatitis A #1 today. All other immunizations are up-to-date. I recommend an annual physical for him. 2. Obesity. I do recommend to return for lab studies. Fasting glucose, hemoglobin A1c, lipid panel, liver function test and thyroid function test will be drawn. We will call mother with results. We did discuss diet and exercise advice and I recommend to be seen back in 3 to 6 month to recheck growth. 3. Astigmatism. He should wear his glasses and have exam followup as recommended. 4. Skin rash. The areas of hyperpigmentation that mother pointed out today are postinflammatory likely secondary to dry skin patches. Best treatment is prevention. They will fade but will take quite awhile now. Discussed minimizing soap and using a thick fragrance free and dye free lotion all over the body. KSL/gracielat Signed Milady Matute M.D. Weatherization And Housing Inspector Electronically Signed By: MILADY MATUTE MD On: 11/17/2010 03:08 Source: [facility] [id number] Document Id: [id number] UREMENT CONSULTANT documented in this encounter Procedure Notes Poppy Evans - 11/11/2010 10:21 AM CST Hearing Point of Care Testing - Audiometer Hearing Point of Care Testing - Audiometer Entered On: 11/11/2010 10:23 PROCUREMENT CONSULTANT Performed On: 11/11/2010 10:21 PROCUREMENT CONSULTANT by POPPY REIS Hearing Point of Care Testing - Audiometer Left Ear Hearing POC Test Grid Left Ear 20 db Left Ear 25 db Left Ear 30 db Left Ear 40 db 500 Hz: Response Response Response Response 1000 Hz: Response Response Response Response 2000 Hz: Response Response Response Response 4000 Hz: Response Response Response Response POPPY REIS - 11/11/2010 10:21 PROCUREMENT CONSULTANT POPPY REIS - 11/11/2010 10:21 PROCUREMENT CONSULTANT POPPY REIS - 11/11/2010 10:21 PROCUREMENT CONSULTANT POPPY REIS - 11/11/2010 10:21 PROCUREMENT CONSULTANT Right Ear Hearing POC Test Grid Right Ear 20 db Right Ear 25 db Right Ear 30 db Right Ear 40 db 500 Hz: Response Response Response Response 1000 Hz: Response Response Response Response 2000 Hz: Response Response Response Response 4000 Hz: Response Response Response Response POPPY REIS - 11/11/2010 10:21 PROCUREMENT CONSULTANT POPPY REIS - 11/11/2010 10:21 PROCUREMENT CONSULTANT POPPY REIS - 11/11/2010 10:21 PROCUREMENT CONSULTANT POPPY REIS - 11/11/2010 10:21 PROCUREMENT CONSULTANT Source: [facility] POWERCHART Document Id: [id number] PROCUREMENT CONSULTANT!44 UREMENT CONSULTANT documented in this encounter Miscellaneous Notes Miscellaneous - Poppy Evans - 11/10/2010 4:21 PM CST Pediatric Information Systems Technician Intake/History Pediatric Information Systems Technician Intake/History Entered On: 11/10/2010 16:22 PROCUREMENT CONSULTANT Performed On: 11/10/2010 16:21 PROCUREMENT CONSULTANT by POPPY REIS Intake Chief Complaint: well child Temperature Core: 36.5C(Converted to: 97.7DegF) Apical Heart Rate: 86/min Respiratory Rate: 22/min Systolic Blood Pressure: 100mmHg Diastolic Blood Pressure: 60mmHg NIBP Mean: 73mmHg BP Location: Right upper extremity Height: 132.50cm(Converted to: 4ft 4in, 52.17in) Actual Weight: 37.500kg(Converted to: 82lb 11oz) Dosing Weight Clinic: 37.50kg Clinic BSA: 1.17 Body Mass Index: 21kg/m2 POPPY REIS - 11/10/2010 16:21 PROCUREMENT CONSULTANT Subjective Pain Symptoms: No POPPY REIS - 11/10/2010 16:21 PROCUREMENT CONSULTANT Dependent Habits Tobacco Use/Currently Using: No POPPY REIS - 11/10/2010 16:21 PROCUREMENT CONSULTANT Allergy Allergies (Active) NKA Estimated Onset Date: Unspecified ; Created By: POPPY REIS; Reaction Status: Active ; Category: Drug ; Substance: NKA ; Type: Allergy ; Updated By: POPPY REIS; Reviewed Date: 11/10/201016:21 PROCUREMENT CONSULTANT Source: [facility] POWERCHART Document Id: [id number] PROCUREMENT CONSULTANT!19 UREMENT CONSULTANT documented in this encounter Plan of Treatment Not on filedocumented as of this encounter Visit Diagnoses Not on filedocumented in this encounter
--- OUTSIDE RECORDS SUMMARY | 2022-06-17 07:55 | XMS_ITS | Encounter Summary ---
:[address] [facility] Address [address] [place] [address] Care Team Providers Name Role Phone Unavailable Primary Care Provider Unavailable Encounter Details Date Type Department Care Team Description 2015 Hospital Encounter HX [facility] Sa edel Moore M.D. [phone] (Wo rk) Social History Tobacco Use Types Packs/Day Years Used Date Smoking Tobacco: Never Assessed Sex Assigned at Date Recorded Not on file documented as of this encounter Last Filed Vital Signs Vital Sign Reading Time Taken Comments Blood Pressure - - Pulse - - Temperature - - Respiratory Rate - - Oxygen Saturation - - Inhaled Oxygen Concentration - - Weight 58 kg (127 lb 13.9 oz) 2015 8:30 AM [employer] Height 163.5 cm (5' 4.37) 2015 8:30 AM [employer] Body Mass Index 21.7 2015 8:30 AM [employer] Body Mass Index Percentile 84.36 % 2015 8:30 AM CS T Growth Chart: [facility] (Boys, 2-20 Years) documented in this encounter H&P Notes Marilynn Moore M.D. - 2015 7:26 PM CST Clinic Full Note CHIEF COMPLAINT/REASON FOR VISIT welllchild HISTORY OF PRESENT ILLNESS Tahmina is here with his mother for a physical exam. Mother is concerned that he seems more down than usual, even though he seems to feel down most of the time. He endorses a score of 8 on a PHQ-9, modified for teens. Watching TV helps; he watches TV for about two hours after school. He complains of trouble falling asleep and staying asleep. He goes to bed at 11 p.m. and falls asleep at 12 [place]. He gets up for school at 6 a.m. He usually awakens at 2 or 3 a.m. most days. On the weekends he goes to bed later and sleeps until the afternoon. He hasn't seen any counselor or therapist. He indicates he would be open to that. He complains of some fatigue at school His responses to questions are superficial at first, with the reply fine, but with further questioning more concerns are unveiled. Most of his grades are D's. They have dropped. He doesn't complain about his grades; this only comes out with further interview. He reports that he gets his homework done. Some problems concentrating. Doesn't go in for extra help. He does attend an after school program to help with homework. No extracurricular activities. We discussed diet. He indicates that he's been trying to eat healthier. Most days he doesn't eat breakfast or lunch; most days he eats when he gets home from school. No soda. Drinks water. He is not in any individual or team sports. Sedentary overall. Lives with mom and dad, brother and sister, ages 15 and 11 respectively. Shares a room with his sister; only 2 bedrooms available for the 3 children and he gets along better with her than with his brother. He dropped a dresser on his left toe a week ago and he has a small subungual hematoma that is not expanding. MEDICATIONS No active medications ALLERGIES NKA PAST MEDICAL HISTORY Chronic Eczema Historical Low vision NOS Obesity NOS SOCIAL HISTORY Date Time: 2015 08:30 Tobacco: Smoking Status: Never smoker Exposure: Care provider denies smoking in home Alcohol: Use: No Results Found Recreational Drugs: Use: No Results Found Type: No Results Found FAMILY HISTORY No qualifying data available. SYSTEMS REVIEW Skin: _Little or no acne. No large or unusual nevi. Eyes: Vision normal. No glasses. Dental: Up to date in dental care. Has had cavities filled. ENT: No recurring ear or throat complaints. Resp: No history of chronic cough or recurrent wheezing. Heart: No palpitations or chest pain. Normal stamina. GI: Regular bowel movements without pain. No recurrent abdominal pain. Neuro: No recurrent headache. Musculoskeletal: No pain or swelling in joints or extremities. Spine: No back or neck pain. Psych: Denies marked mood swings or symptoms of depression. PHQ-9 completed today and charted in EMR. Normal unless addressed above. : No testicular pain or swelling. Academic: School attendance and grades discussed. --Poor academics Extracurricular activities discussed. --some interest in soccer, but not involved in any regular activities. Nutrition: Reviewed universal 5,2,1,0 guidelines for healthy lifestyle. Reviewed BMI and its significance. Questioned about Substance Use: Denies use of alcohol, tobacco, illegal drugs, or drugs prescribed for someone else. Mother endorses a normal score of 10 on a pediatric symptom checklist, with regard to [place]'s mental health and behavior. VITAL SIGNS T: 36.7 ??C (Core) HR: 88 RR: 20 BP: 110 / 60 HT: 163.5 cm WT: 58 kg BMI: 21.7 PHYSICAL EXAMINATION General: BMI 21.7 (84th%). Skin: No large or dysplastic nevi. _Little or no acne. Eyes: PEERLA, EOM full. Fundoscopic exam shows sharp disc margins and normal venous pulsations. ENT: Tympanic membranes normal. No middle ear effusion. Good nasal airway. Pharynx normal. Dentition healthy. Lymph Nodes: No lymphadenopathy in cervical or supraclavicular chains. Breasts: Normal male without gynecomastia. Peripheral Vessels: Normal femoral and pedal pulses. Thyroid: Normal to visualization and palpation. No enlargement or nodules. Heart: Quiet precordium. S1 and S2 normal with physiologic splitting of S2. No murmurs or clicks. Lungs: Normal chest configuration without pectus. Clear, vesicular breath sounds without adventitious sounds. Abdomen: Soft and non distended. No hepatosplenomegaly or masses. Spine: Normal cervical and thoracolumbar spine without scoliosis or excess cervical kyphosis. Flexibility normal. Joints: Full range of motion in extremities. Musculoskeletal: Normal muscle strength to resistance testing. Bruise on the left great toe; had dropped something on it last week. Gait: Normal walking gait. Normal heel, toed, and tandem gait. Able to do the duck walk. Mental Status: Poor eye contact. Slow to respond. Quiet, says very little, even when encouarged to participate. Neuro: Deep tendon reflexes 2+/2+ in all four extremities. Babinski response negative bilaterally. Klyrbe-xt-[id number] testing normal. Romberg negative. Normal tone. Genitalia: Rakesh IV male. Testicles descended. No hernias or hydroceles. IMPRESSION/REPORT/PLAN Exam [facility] [employer] ([facility]) Multisystem 29 Day-17 Year 1. Well teen with normal growth and development. 2. Discussed importance of sleep and sleep hygiene. Set goal for 1 hour of exercise outside of school hours; walking is one of the best. Wears seat belt. Discussed regular meals, especially family meals, and limits on fast food. Limit screen time to less than 2 hours per day exclusive of truly academic IPAD time. Reviewed dental hygiene and the need to floss. 3. Vaccines reviewed and updated as needed. _ 4. Discussed sleep hygiene. I encouraged him to eliminate the after school naps, so as to observe jett conventional bedtime between 9 and 10. Also discussed turning off electronics well before bedtime. 5. Suggest meeting with the high school counselor, in view of his poor grades, to help set goals. Need Vaccine (IN) NOS Electronically Signed By: MARILYNN MOORE MD On: 10/29/2015 07:29 PM [facility] Document Id: [id number] [employer] documented in this encounter Procedure Notes Radha Rivera L.P.NRussell - 2015 9:05 AM CST Vision Testing Vision Testing Entered On: 2015 9:05 [employer] Performed On: 2015 9:05 [employer] by RADHA RIVERA LPN Vision Testing Corrective Lenses : None Eye, Right w/o Correction : 20/20 Eye, Left w/o Correction : 20/20 RADHA RIVERA LPN - 2015 9:05 [employer] [facility] Document Id: [id number] DIRECTOR [employer]!5 [employer] Radha Rivera L.P.NRussell - 2015 9:04 AM CST Hearing Point of Care Testing - Audiometer Hearing Point of Care Testing - Audiometer Entered On: 2015 9:05 [employer] Performed On: 2015 9:04 [employer] by RADHA RIVERA LPN Hearing Point of Care Testing - Audiometer Left Ear Hearing POC Test Grid Left Ear 20 db Left Ear 25 db Left Ear 30 db Left Ear 35 db 500 Hz : Response Response Response Response 1000 Hz : Response Response Response Response 2000 Hz : Response Response Response Response 4000 Hz : Response Response Response Response RADHA RIVERA LPN - 2015 9:04 [employer] RADHA RIVERA LPN - 2015 9:04 [employer]ES RADHA RIVERA LPN - 2015 9:04 [employer]ES RADHA RIVERA LPN - 2015 9:04 [employer] Left Ear 40 db 500 Hz : Response 1000 Hz : Response 2000 Hz : Response 4000 Hz : Response RADHA RIVERA LPN - 2015 9:04 [employer] Right Ear Hearing POC Test Grid Right Ear 20 db Right Ear 25 db Right Ear 30 db Right Ear 35 db 500 Hz : Response Response Response Response 1000 Hz : Response Response Response Response 2000 Hz : Response Response Response Response 4000 Hz : Response Response Response Response RADHA RIVERA LPN - 2015 9:04 [employer] RADHA RIVERA LPN - 2015 9:04 [employer]ES RADHA RIVERA LPN - 2015 9:04 DIRECT[employer]ES RADHA RIVERA LPN - 2015 9:04 [employer] Right Ear 40 db 500 Hz : Response 1000 Hz : Response 2000 Hz : Response 4000 Hz : Response RADHA RIVERA LPN - 2015 9:04 [employer] [facility] Document Id: [id number] DIRECTOR [employer]!54 [employer] documented in this encounter Miscellaneous Notes Miscellaneous - Marilynn oMore M.D. - 2015 7:21 PM CST PHQ-9 - Teens PHQ-9 - Teens Entered On: 10/29/2015 19:21 [employer] Performed On: 2015 19:21 [employer] by MARILYNN MOORE MD PHQ-9 - Teens Feeling down, depressed, or hopeless : Several days Little interest or pleasure in doing things : Several days Trouble falling or staying asleep, or sleeping too much : More than half the days Poor appetite or overeating : Several days Feeling tired or having little energy : Several days Feeling bad about yourself or that you are a failure : Not at all Trouble concentrating on things : Not at all Moving or speaking slowly; restless or fidgety : More than half the days Thoughts that you would be better off /hurting self : Not at all PHQ-9 Score for Teens : 8 Depressed or sad most days : No Problems make work, home, or dealing with others : Not difficult at all Serious thoughts about ending your life : No Ever try to kill yourself : No MARILYNN MOORE MD - 10/29/2015 19:21 [employer] [facility] Document Id: [id number] DIRECTOR [employer]ING SALES!16 [employer] Miscellaneous - Marilynn Moore M.D. - 2015 9:40 AM CST Ambulatory Patient Summary [address] [id number] Visit Information Name: TAHMINA CORONADO [facility] Number: [id number] Current Date: 2015 09:40:33 Physicians Attending Provider: MARILYNN MOORE MD Primary Care Provider: PCP, TAHMINA PANIAGUA has been given the following list of [...] Take Indications/Special Instructions/Comments/Notes for Patient Medication Changes/Routing No Medications found Stop Taking the Following Medications: Medication list as of 10-24-15 09:40 Attention: If you have any medications at home that are not on this list, DO NOT take them until youcontact your provider for clarification. Give a copy of your medication list to your primary care provider. Update your medication list any time medications or doses are changed and carry your medication list at all times in case of emergency. Electronically Signed By: MARILYNN MOORE MD Signed On:24-OCT-2015 09:40:04 Your Allergies & Intolerances Substance Reaction Symptoms Category Comments No Known Allergies Drug Your Problem List Problem Status Onset Comments Low vision NOS Active 11/11/2010 Eczema Active 12/19/2010 Your Upcoming Appointments Date Time Location Provider No Appointments found Attention: Contact your local Clinic if further appointment detail needed. Adult Immunization Schedule Vaccine How Often Disease Prevented Who Needs It Influenza Every year Flu, which can be especially dangerous to the elderly or people with immune disorders All adults. Tetanus, diphtheria (Td); or Tetanus, diphtheria, and pertussis (Tdap)* One dose of Tdap, then one dose of Td as a booster every 10 years Tetanus, (lockjaw), a disease that causes muscles to spasm Diphtheria, an infection that causes fever, weakness, and breathing difficulties Pertussis, also known aswhooping cough, is a highly contagious disease that can cause serious illness All adults *This vaccine should be given during each regardless of the number of years since prior vaccination. The vaccine increases protection for your who is too young to get the vaccine, but at the highest risk for severe illness and from pertussis (whooping cough). Varicella (Abdullahi) One series of 2 injections Chickenpox, a disease that causes itchy skin bumps, fever, and tiredness; can lead to scarring, pneumonia, or brain inflammation Adults who dont have evidence of immunity This vaccine should not be given to women. Women should avoid for4 weeks after vaccination. Human papillomavirus (HPV) One series of 3 injections Cervical cancer, caused by certain types of HPV Vaginal and vulvar cancer Penile cancer Head and neck cancers Anal cancer Genital warts Females andmales age 26 and younger. Minimum age is 9 years. (Ask your health care provider if this vaccine is right for you.) Zoster 1 dose Herpes zoster (shingles), a painful rash marked by blisters Adults age 60 and older. You should not get this vaccine if your immune system is low: for example, if you have HIV, are taking medications that suppress your immune system, or are getting cancer treatment. Measles, mumps, rubella (MMR) 1 or 2 doses, for ages 19 through 49; 1 dose for ages 50 or older ifat risk Measles, a disease marked by red spots, fever, and coughing Mumps, a disease that causes swelling in the salivary glands and may affect the ovaries or testes Rubella (Mauritian measles), a form ofmeasles that, if caught by a woman, can cause defects Adults born in 1957 or later who are not known to be immune to all three of these diseases. Ask your healthcare provider if you needa second dose. This vaccine should not be given to women. Women should avoid for 4 weeks after vaccination. Pneumococcal (PCV 13) 1 dose Pneumonia, an infection that causes inflammation in your lungs, and canlead to Adults age 19 and older with weak immune systems or any of these medical conditions: chronic renal failure and/or nephrotic syndrome, functional or anatomic asplenia, cerebrospinal fluid (CSF) leaks, or cochlear implants Pneumococcal (PPSV) At least once, possibly more often Pneumonia, an infection that causes inflammation in the lungs, and can lead to . Adults age 65 and older; adults with chronic illnesses, suchas asthma, COPD, heart disease, diabetes; adults with an immune disorder; adults who smoke cigarettes Meningococcal (MCV or MPSV) 1 or more doses Meningococcal disease (bacterial meningitis), inflammation of the membrane covering the brain and spinal cord; can result in Adults with immune deficiencies or high risk of exposure; college freshmen living in dormitories; recruits. Hepatitis A (HepA) One series of 2 injections Hepatitis A, an infection that can result in acute liver inflammation and jaundice (yellow skin and whites of the eyes) Adults with risk factors, such as clotting disorders or chronic liver disease; adults with high risk of exposure Hepatitis B (HepB) One series of 3 injections Hepatitis B, an infection that causes chronic, severe liver disease Adults with high risk of exposure, such as healthcare providers and sanitation workers;adults with diabetes Travelers diseases As needed Infections such as cholera, typhoid, yellow fever, polio, rabies, meningococcal disease, hepatitis A, hepatitis B Adults traveling out of the country. Required immunizations will vary depending on the country you visit. Check CDC website: www.cdc.gov. Based on the CDC National Immunization Program recommendations for adults (October 2012). ?? 6340-4569 Samantha Fischer, [address] [place] [address], [place] [address]. All rights reserved. This information is not intended as a substitute for professional medical care. Always follow your healthcare professional's instructions. Well-Child Checkup: 11-13 Years Between ages 11 and 13, your child will grow and change a lot. Its important to keep having yearly checkups so the healthcare provider can track this progress. As your child enters puberty, he or she may become more embarrassed about having a checkup. Reassure your child that the exam is normal and necessary. Also be aware that the healthcare provider may ask to talk with the child without you in theexam room. Physical activity is flores to lifelong good health. Encourage your child to find activities that he orshe enjoys. School and Social Issues Here are some topics you, your child, and the healthcare provider may want to discuss during this visit: ?? School performance. How is your child doing in school? Is homework finished on time? Does your child stay organized? These are skills you can help with. Keep in mind that a drop in school performance can be a sign of other problems. ?? Friendships. Do you like your sydnee friends? Do the friendships seem healthy? Make sure to talk to your child about who his or her friends are and how they spend time together. This is the age whenpeer pressure can start to be a problem. ?? Life at home. How is your sydnee behavior? Does he or she get along with others in the family? Ishe or she respectful of you, other adults, and authority? Does your child participate in family events, or does he or she withdraw from other family members? ?? Risky behaviors. Its not too early to start talking to your child about drugs, alcohol, smoking, and sex. Make sure your child understands that these are not activities he or she should do, even if friends are. Answer your sydnee questions, and dont be afraid to ask questions of your own. Make sureyour child knows he or she can always come to you for help. If youre not sure how to approach these topics, talk to the healthcare provider for advice. Entering Puberty Puberty is the stage when a child begins to develop sexually into an adult. It usually starts between 9 and 14 for girls, and between 12 and 16 for boys. Here is some of what you can expect when puberty begins: ?? Acne and body odor. Hormones that increase during puberty can cause acne (pimples) on the face and body. Hormones can also increase sweating and cause a stronger body odor. At this age, your child should begin to shower or bathe daily. Encourage your child to use deodorant and acne products as needed. ?? Body changes in girls. Early in puberty, breasts begin to develop. One breast often starts to grow before the other. This is normal. Hair begins to grow in the pubic area, under the arms, and on thelegs. Around 2 years after breasts begin to grow, a girl will start having monthly periods (menstruation). To help prepare your daughter for this change, talk to her about periods, what to expect, and how to use feminine products. ?? Body changes in boys. At the start of puberty, the testicles drop lower and the scrotum darkens and becomes looser. Hair begins to grow in the pubic area, under the arms, and on the legs, chest, andface. The voice changes, becoming lower and deeper. As the penis grows and matures, erections and wet dreams begin to occur. Reassure your son that this is normal. ?? Emotional changes. Along with these physical changes, youll likely notice changes in your sydnee personality. You may notice your child developing an interest in dating and becoming more than friends with others. Also, many kids become hayward and develop an attitude around puberty. This can be frustrating, but it is very normal. Try to be patient and consistent. Encourage conversations, even when your child doesnt seem to want to talk. No matter how your child acts, he or she still needs a parent. Nutrition and Exercise Tips Today, kids are less active and eat more junk food than ever before. Your child is starting to make choices about what to eat and how active to be. You cant always have the final say, but you can help your child develop healthy habits. Here are some tips: ?? Help your child get at least 30-60 minutes of activity every day. The time can be broken up throughout the day. If the weathers bad or youre worried about safety, find supervised indoor activities. ?? Limit screen time to 1-2 hours each day. This includes time spent watching TV, playing video games, using the computer, and texting. If your child has a TV, computer, or video game console in the bedroom, consider replacing it with a music player. For many kids, dancing and singing are fun ways to get moving. ?? Limit sugary drinks. Soda, juice, and sports drinks lead to unhealthy weight gain and tooth decay. Water and low-fat or nonfat milk are best to drink. In moderation, 100% fruit juice is okay. Save soda and other sugary drinks for special occasions. ?? Have at least one family meal together each day. Busy schedules often limit time for sitting and talking. Sitting and eating together allows for family time. It also lets you see what and how your child eats. ?? Pay attention to portions. Serve portions that make sense for your kids. Let them stop eating when theyre full--dont make them clean their plates. Also be aware that many kids appetites increase during puberty. If your child is still hungry after a meal, offer seconds of vegetables or fruit. ?? Serve and encourage healthy foods. Your child is making more food decisions on his or her own. All foods have a place in a balanced diet. Fruits, vegetables, lean meats, and whole grains should be eaten every day. Save less healthy foods--like ivorian fries, candy, and chips--for a special occasion.When your child does choose to eat junk food, consider making the child buy it with his or her own money. ?? Bring your child to the dentist at least twice a year for teeth cleaning and a checkup. Sleeping Tips At this age, your child needs about 10 hours of sleep each night. Here are some tips: ?? Set a bedtime and make sure your child follows it each night. ?? TV, computer, and video games can agitate a child and make it hard to calm down for the night. Turn them off the at least an hour before bed. Instead, encourage your child to read before bed. ?? If your child has a cell phone, make sure its turned off at night. ?? Dont let your child go to sleep very late or sleep in on weekends. This can disrupt sleep patterns and make it harder to sleep on school nights. ?? Remind your child to brush and floss his or her teeth before bed. Safety Tips ?? When riding a bike, roller-skating, or using a scooter or skateboard, your child should wear a helmet with the strap fastened. When using roller skates, a scooter, or a skateboard, it is also a goodidea for your child to wear wrist guards, elbow pads, and knee pads. ?? In the car, all children younger than 13 should sit in the back seat. ?? If your child has a cell phone or portable music player, make sure these are used safely and responsibly. Do not allow your child to talk on the phone, text, or listen to music with headphones whilehe or she is riding a bike or walking outdoors. Remind your child to pay special attention when crossing the street. ?? Constant loud music can cause hearing damage, so monitor the volume on your Kaseya music player. Many players let you set a limit for how loud the volume can be turned up. Check the directions for details. ?? At this age, kids may start taking risks that could be dangerous to their health or well-being. Sometimes bad decisions stem from peer pressure. Other times, kids just dont think ahead about what could happen. Teach your child the importance of making good decisions. Talk about how to recognize peer pressure and come up with strategies for coping with it. ?? Sudden changes in your sydnee mood, behavior, friendships, or activities can be warning signs of problems at school or in other aspects of your sydnee life. If you notice signs like these, talk to your child and to the staff at your sydnee school. The healthcare provider may also be able to offer advice. Vaccinations Based on recommendations from the [place] [employer], at this visit your child may receive the following vaccinations: ?? Human papillomavirus (HPV) (ages 11-12) ?? Influenza (flu) ?? Meningococcal (ages 11-12) ?? Tetanus, diphtheria, and pertussis (ages 11-12) Stay On Top of Social Media In this wired age, kids are much more connected with friends--possibly some theyve never met in person. To teach your child how to use social media responsibly: Set limits for the use of cell phones, the computer, and the Internet. Remind your child that you can check the web browser history and cell phone logs to know how these devices are being used. Use parental controls and passwords to block access to inappropriate websites. Use privacy settings on websites so only your sydnee friends can view his or her profile. Explain to your child the dangers of giving out personal information online. Teach your child not to share his or her phone number, address, picture, or other personal details with online friends without your permission. Make sure your child understands that things he or she says on the Internet are never private. Posts made on websites like Facebook, [employer] Dx, and Netseer can be seen by people they werent intended for. Posts can easily be misunderstood and can even cause trouble for you or your child. Supervise your sydnee use of social networks, chat rooms, and email. Next checkup at: PARENT NOTES: ?? [facility], [address] [place] [address], [place] [address]. All rights reserved. This information is not [...] if you dont have one. Go to [email or web address] and click on Create Your Account. Then, follow the directions to complete the online form. Youll be asked for your [facility] number which you can find at the top of this document. Your Goals/Additional instructions: This document has images extracted. Please consider using [employer] for all your patient education needs. Source: [facility] POWERCHART Document Id: [id number] CTOR OF CATERING SALES Flako - Marilynn Moore M.D. - 2015 9:40 AM CST Ambulatory Discharge Medication List [address] [place], [place] [id number] Visit Information Name: TAHMINA CORONADO [facility] Number: [id number] Visit Date: 2015 09:40:32 Attending Provider: MARILYNN MOORE MD Primary Care Provider: PCP, ELSEWHERE TAHMINA CORONADO [...] Take Indications/Special Instructions/Comments/Notes for Patient Medication Changes/Routing No Medications found Stop Taking the Following Medications: Medication list as of 10-24-15 09:40 Attention: If you have any medications at home that are not on this list, DO NOT take them until youcontact your provider for clarification. Give a copy of your medication list to your primary care provider. Update your medication list any time medications or doses are changed and carry your medication list at all times in case of emergency. Electronically Signed By: MARILYNN MOORE MD Signed On:24-OCT-2015 09:40:04 Additional Information: Source: [facility] POWERCHART Document Id: [id number] CTOR OF CATERING SALES Flako - Radha Rivera S, LRussellP.N. - 2015 8:30 AM CST Pediatric Dynamo Tender Intake/History Pediatric Dynamo Tender Intake/History Entered On: 2015 8:33 DIRECTOR OF CATERING SALES Performed On: 2015 8:30 DIRECTOR OF CATERING SALES by RADHA RIVERA LPN Intake Chief Complaint : welllchild Temperature Core : 36.7 DegC(Converted to: 98.1 DegF) Peripheral Pulse Rate : 88 /min Respiratory Rate : 20 /min Heart Rhythm : Regular Systolic Blood Pressure : 110 mmHg Diastolic Blood Pressure : 60 mmHg NIBP Mean : 77 mmHg BP Location : Left upper extremity Blood Pressure Cuff Size : Regular Height : 163.5 cm(Converted to: 5 ft 4 inch(es), 64 inch(es)) Actual Weight : 58 kg(Converted to: 127 lb 14 oz) Weight Source : Standing scale Dosing Weight Clinic : 58 kg Clinic BSA : 1.62 Body Mass Index : 21.7 kg/m2 RADHA RIVERA LPN - 2015 8:30 DIRECTOR OF CATERING SALES General Info Languages : Luxembourger, Belarusian Is Patient Female and 13-50 no hysterectomy : RADHA Chu LPN - 2015 8:30 DIRECTOR OF CATERING SALES Subjective Pain Symptoms : RADHA Chu LPN - 2015 8:30 DIRECTOR OF CATERING SALES Dependent Habits Exposure to Tobacco Smoke : Care provider denies smoking in home Smoking Status : Never smoker Tobacco 2A : No Tobacco Use/Currently Using : No Tobacco Use/Last 30 Days : No Tobacco Use/Last 12 months : RADHA Chu LPN - 2015 8:30 DIRECTOR OF CATERING SALES Source: [facility] POWERCHART Document Id: [id number] DIRECTOR OF CATERING SALES!30 CTOR OF CATERING SALES documented in this encounter Plan of Treatment Not on filedocumented as of this encounter Visit Diagnoses Not on filedocumented in this encounter Additional Health Concerns Assessment Noted Time PHQ-9 Depression Total Score: 8 2015 7:21 PM DIRECTOR OF CATERING SALES documented as of this encounter
--- OUTSIDE RECORDS SUMMARY | 2022-06-17 07:55 | XMS_ITS | Encounter Summary ---
:2000 Author Organization [facility] Address [address] [place] [address] Care Team Providers Name Role Phone Unavailable Primary Care Provider Unavailable Encounter Details Date Type Department Care Team Description 11/19/2014 [facility] [address] [place], [place] [phone] (Wo rk) Social History Tobacco Use Types Packs/Day Years Used Date Smoking Tobacco: Never Assessed Sex Assigned at Date Recorded Not on file documented as of this encounter Progress Notes Wisam Narvaez M.D. - 11/19/2014 4:03 PM CST [id number] The documentation for this visit is available in [employer] IMPRESSION/REPORT/PLAN A) hyperopia, mild, excellent vision, no need for glasses at this time P) RTo 1-2 years Wisam Narvaez M.D./kermit Electronically Signed By: WISAM NARVAEZ MD On: 11/23/2014 11:04 AM Source: [facility] MHSDOLBEYNONRADSYS Document Id: [id number] GER WINTER documented in this encounter Miscellaneous Notes Miscellaneous - Wisam Narvaez M.D. - 11/19/2014 4:55 PM CST Ambulatory Patient Summary [place] [id number] [place] [phone] Visit Information Name: TAHMINA CORONADO [facility] Number: [id number] Current Date: 11/19/2014 16:55:24 Physicians Attending Provider: WISAM NARVAEZ MD Primary Care Provider: PCP, ELSEWHERE TAHMINA [...] the Following Medications: Medication list as of 11-19-14 16:55 Attention: If you have any medications at home that are not on this list, DO NOT take them until youcontact your provider for clarification. Give a copy of your medication list to your primary care provider. Update your medication list any time medications or doses are changed and carry your medication list at all times in case of emergency. Electronically Signed By: WISAM NARVAEZ MD Signed On:19-NOV-2014 16:55:21 Your Allergies & Intolerances Substance Reaction Symptoms Category Comments No Known Allergies Drug Your Problem List Problem Status Onset Comments Obesity NOS Active Low vision NOS Active 11/11/2010 Abnormal thyroid function study Active 11/18/2010 Eczema Active 12/19/2010 Your Upcoming Appointments Date Time Location Provider No Appointments found Attention: Contact your local Clinic if further appointment detail needed. Your Goals/Additional instructions: Source: [facility] POWERCHART Document Id: [id number] GER WINTER Miscellaneous - Wisam Narvaez M.D. - 11/19/2014 4:55 PM CST Ambulatory Discharge Medication List [address] [id number] Visit Information Name: TAHMINA CORONADO [facility] Number: [id number] Visit Date: 11/19/2014 16:55:24 Attending Provider: WISAM NARVAEZ MD Primary Care Provider: PCP, ELSEWHERE TAHMINA [...] the Following Medications: Medication list as of 11-19-14 16:55 Attention: If you have any medications at home that are not on this list, DO NOT take them until youcontact your provider for clarification. Give a copy of your medication list to your primary care provider. Update your medication list any time medications or doses are changed and carry your medication list at all times in case of emergency. Electronically Signed By: WISAM NARVAEZ MD Signed On:19-NOV-2014 16:55:21 Additional Information: Source: [facility] POWERCHART Document Id: [id number] GER WINTER documented in this encounter Plan of Treatment Not on filedocumented as of this encounter Visit Diagnoses Not on filedocumented in this encounter
--- OUTSIDE RECORDS SUMMARY | 2022-06-17 07:55 | XMS_ITS | Encounter Summary ---
:2002 Author Organization [facility] Address [address] [place] [address] Care Team Providers Name Role Phone Unavailable Primary Care Provider Unavailable Encounter Details Date Type Department Care Team Description 12/04/2016 Hospital Encounter HX [facility] Godfrey Moore M.D. [phone] (Wo rk) Social History Tobacco Use Types [...] (143 lb 4.8 oz) 12/04/2016 3:40 PM GROUP FITNESS INSTRUCTOR Height 170.5 cm (5' 7.13) 12/04/2016 3:40 PM GROUP FITNESS INSTRUCTOR Body Mass Index 22.36 12/04/2016 3:40 PM GROUP FITNESS INSTRUCTOR Body Mass Index Percentile 82.98 % 12/04/2016 3:40 PM CS T Growth Chart: [facility] (Boys, 2-20 Years) documented in this encounter H&P Notes Marilynn Moore M.D. - 12/04/2016 8:52 PM CST Clinic Full Note CHIEF COMPLAINT/REASON FOR VISIT wellchild HISTORY OF PRESENT ILLNESS Kodi is here with his mother. He is scheduled for a well teen check. However, from a mental health standpoint he is not at all well. Parent is Arabic speaking, little or no Luxembourgish. A phone or digital food science technician was used for the visit. He was seen in the Emergency room in [place] 3 weeks ago (November 12) stating that he wanted to kill himself --wanted to drown himself. It sounds as though a few days prior to that he was hospitalized in [place] for similar complaints. He was then hospitalized for ten days in an inpatient psychiatric facility. I don't have records from that and mother doesn't recall the name of the facility. He is home and closes himself in his room; mother is home with him. He had promised to go to school when he was released from the hospital but has not returned to school. He is simply too big and too aggressive for his mother to make him go to school, so he stays at home in his room all day. 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 He has not yet established a psychiatrist or a psychologist to oversee his care. He has an appointment WednesdayDecember 07 with a doctor at the [facility] prior to him seeing their psychologist. Mother has an appointment with the principal WednesdayDecember 08. He is like his brother according to Kodi. Brother is Matthew, age 16. Kodi states that he too has mental health problems. School recommended that he be evaluated further by a physician prior to his ED visit. During his psychiatric hospitalization (records not available for review) he was placed on medication. He was placed on fluoxetine, 20 mg daily. He takes melatonin 6 mg at bedtime. He was given hydroxyzine 25 mg for sleep but isn't taking that; it makes him too agitated. Not sleeping. He is agitated. He is angry. He has not been to school. He denies using weed. He denies alcohol. He was seeing Tyrone, a therapist at [facility] in the past in 2014. Mother went to see Tyrone on her own last week, wondering how to help Kodi. He refused to go to the dentist, refused to go see Tyrone. He says I get mad, I get irritated, I'm usually quiet. Mental Status: Mood is negative, affect agitated, quietly angry. Activity level is restless Judgment and insight are impaired. MEDICATIONS No active medications ALLERGIES NKA PAST MEDICAL HISTORY Chronic Eczema Historical Low vision NOS Obesity NOS SOCIAL HISTORY Date Time: 12/04/2016 15:40 Tobacco: Smoking Status: Never smoker Exposure: Care provider denies smoking in home Alcohol: Use: No Results Found Recreational Drugs: Use: No Results Found Type: No Results Found FAMILY HISTORY No qualifying data available. SYSTEMS REVIEW Skin: _Minimal acne. Eyes: Vision normal. No glasses. Dental: Refuses to see dentist ENT: No recurring ear or throat complaints. Resp: No history of chronic cough or recurrent wheezing. Heart: No palpitations or chest pain. Normal stamina. GI: Regular bowel movements without pain. No recurrent abdominal pain. Neuro: No recurrent headache. Musculoskeletal: No pain or swelling in joints or extremities. Spine: No back or neck pain. Psych: PHQ-9 score elevated at 21. : Not reviewed._ Questioned about Substance Use: Denies use of alcohol, tobacco, illegal drugs, or drugs prescribed for someone else. HEARING AND VISION: Checked in the clinic today. See results in the Documentation tab. VITAL SIGNS T: 37.2 ??C (Core) HR: 72 RR: 16 BP: 110 / 60 HT: 170.5 cm WT: 65 kg BMI: 22.36 PHYSICAL EXAMINATION General: Well groomed. BMI 22.4 (83rd%). Skin: Free of severe acne or other rashes. No large or dysplastic nevi. Eyes: PERRLA, EOM full. No nystagmus. ENT: Tympanic membranes normal. No middle ear effusion. Good nasal airway. Pharynx non-erythematous. Dentition not assessed. Lymph Nodes: No cervical, supraclavicular, or inguinal lymphadenopathy. Breasts: Normal male without gynecomastia. Thyroid: Normal to visualization and palpation. No enlargement or nodules. Peripheral Vessels: Normal femoral and pedal pulses. Heart: Quiet precordium. S1 and S2 normal with physiologic splitting of S2. No murmurs or clicks. Lungs: Normal chest configuration, without pectus. Clear, vesicular breath sounds without adventitious sounds. Abdomen: Soft and non-distended. No hepatosplenomegaly or masses. Genitalia: Not examined. _ Spine: Normal cervical and thoracolumbar spine without scoliosis. Flexibility normal. Joints: Full range of motion in extremities, without joint pain or swelling. Musculoskeletal: Normal muscle strength to resistance testing. Gait: Normal walking gait. Psych/Mental Status: See HPI. Neuro: Deep tendon reflexes 2+/2+ in all four extremities. Babinski response negative bilaterally. Finger to nose testing normal. Romberg negative. Normal tone. IMPRESSION/REPORT/PLAN Exam [facility] Whipped Topping Supervisor ([facility]) Multisystem 29 Day-17 Year Normal 1. Physically he is well. Mental health is a concern. He has some features suggesting hypomania; I am glad that he'll be having further psychological evaluation, Needs to establish a psychiatrist. As he will be seeing a mental health professional in a few days will hope that this will be a step in the right direction. 2. Discussed importance of sleep and sleep hygiene. He did not appear to be in the mood to discuss healthy lifestyle. _ Electronically Signed By: MARILYNN MOORE MD On: 12/29/2016 07:18 PM Source: [employer] Document Id: [id number] documented in this encounter Procedure Notes Radha Rivera L.P.N. - 12/04/2016 4:13 PM CST Vision Testing Vision Testing Entered On: 12/04/2016 16:13 GROUP FITNESS INSTRUCTOR Performed On: 12/04/2016 16:13 GROUP FITNESS INSTRUCTOR by RADHA RIVERA LPN Vision Testing Corrective Lenses : None Eye, Right w/o Correction : 20/20 Eye, Left w/o Correction : 20/20 RADHA RIVERA LPN - 12/04/2016 16:13 GROUP FITNESS INSTRUCTOR Source: [employer] Document Id: [id number] GROUP FITNESS INSTRUCTOR!5 P FITNESS INSTRUCTOR Radha Rivera L.PRussellNRussell - 12/04/2016 4:13 PM CST Hearing Point of Care Testing - Audiometer Hearing Point of Care Testing - Audiometer Entered On: 12/04/2016 16:14 GROUP FITNESS INSTRUCTOR Performed On: 12/04/2016 16:13 GROUP FITNESS INSTRUCTOR by RADHA RIVERA LPN Hearing Point of [...] Response Response Response RADHA RIVERA LPN - 12/04/2016 16:13 GROUP FITNESS INSTRUCTOR RADHA RIVERA LPN - 12/04/2016 16:13 CSTALPESHMARLEYRADHA LPN - 12/04/2016 16:13 GROUP FITNESS INSTRUCTOR NICOLEKANERADHA PAULOIrma CUEVAS - 12/04/2016 16:13 GROUP FITNESS INSTRUCTOR Left Ear 40 db 500 Hz : Response 1000 Hz : Response 2000 Hz : Response 4000 Hz : Response RADHA RIVERAIrma CUEVAS - 12/04/2016 16:13 GROUP FITNESS INSTRUCTOR Right Ear Hearing POC Test Grid Right Ear 20 db Right Ear 25 db Right Ear 30 db Right Ear 35 db 500 Hz : Response Response Response Response 1000 Hz : Response Response Response Response 2000 Hz : Response Response Response Response 4000 Hz : Response Response Response Response RADHA RIVERA LPN - 12/04/2016 16:13 GROUP FITNESS INSTRUCTOR NICOLERADHA LPN - 12/04/2016 16:13 CSTRADHA RIVERA LPN - 12/04/2016 16:13 GROUP FITNESS INSTRUCTOR RADHA RIVERA LPN - 12/04/2016 16:13 GROUP FITNESS INSTRUCTOR Right Ear 40 db 500 Hz : Response 1000 Hz : Response 2000 Hz : Response 4000 Hz : Response NICOLE RADHA PAULO CUEVAS - 12/04/2016 16:13 GROUP FITNESS INSTRUCTOR [facility] Document Id: [id number] GROUP FITNESS INSTRUCTOR!54 P FITNESS INSTRUCTOR documented in this encounter Miscellaneous Notes Miscellaneous - Radha Rivera L.PRussellN. - 12/04/2016 4:02 PM CST PHQ-9 - Teens PHQ-9 - Teens Entered On: 12/04/2016 16:03 GROUP FITNESS INSTRUCTOR Performed On: 12/04/2016 16:02 GROUP FITNESS INSTRUCTOR by RADHA RIVERA LPN PHQ-9 - Teens Feeling down, depressed, or hopeless : Nearly every day Little interest or pleasure in doing things : Nearly every day Trouble falling or staying asleep, or sleeping too much : Nearly every day Poor appetite or overeating : Several days Feeling tired or having little energy : Nearly every day Feeling bad about yourself or that you are a failure : Nearly every day Trouble concentrating on things : Nearly every day Moving or speaking slowly; restless or fidgety : Several days Thoughts that you would be better off /hurting self : Several days PHQ-9 Score for Teens : 21 Depressed or sad most days : Yes Problems make work, home, or dealing with others : Somewhat difficult Serious thoughts about ending your life : Yes Ever try to kill yourself : No RADHA RIVERA LPN - 12/04/2016 16:02 GROUP FITNESS INSTRUCTOR Source: [facility] [employer] Document Id: [id number] GROUP FITNESS INSTRUCTOR!16 P FITNESS INSTRUCTOR Miscellaneous - Radha Rivera L.P.NRussell - 12/04/2016 3:40 PM CST Pediatric Senior Education Specialist Intake/History Pediatric Senior Education Specialist Intake/History Entered On: 12/04/2016 15:41 GROUP FITNESS INSTRUCTOR Performed On: 12/04/2016 15:40 GROUP FITNESS INSTRUCTOR by RADHA RIVERA LPN Intake Chief Complaint : wellchild Temperature Core : 37.2 DegC(Converted to: 99.0 DegF) Peripheral Pulse Rate : 72 /min Respiratory Rate : 16 /min Heart Rhythm : Regular Systolic Blood Pressure : 110 mmHg Diastolic Blood Pressure : 60 mmHg NIBP Mean : 77 mmHg BP Location : Right upper extremity Blood Pressure Cuff Size : Regular Height : 170.5 cm(Converted to: 5 ft 7 inch(es), 67 inch(es)) Actual Weight : 65 kg(Converted to: 143 lb 5 oz) Weight Source : Standing scale Dosing Weight Clinic : 65 kg Clinic BSA : 1.75 Body Mass Index : 22.36 kg/m2 RADHA RIVERA LPN - 12/04/2016 15:40 GROUP FITNESS INSTRUCTOR General Info Languages : Luxembourgish, Arabic Is Patient Female and 13-50 no hysterectomy : No RADHA RIVERA LPN - 12/04/2016 15:40 GROUP FITNESS INSTRUCTOR Subjective Pain Symptoms : No RADHA RIVERA LPN - 12/04/2016 15:40 GROUP FITNESS INSTRUCTOR Dependent Habits Exposure to Tobacco Smoke : Care provider denies smoking in home Smoking Status : Never smoker Tobacco 2A : No Tobacco Use/Currently Using : No Tobacco Use/Last 30 Days : No Tobacco Use/Last 12 months : No RADHA RIVERA LPN - 12/04/2016 15:40 GROUP FITNESS INSTRUCTOR Source: [facility] POWERCHART Document Id: [id number] GROUP FITNESS INSTRUCTOR!30 P FITNESS INSTRUCTOR documented in this encounter Plan of Treatment Not on filedocumented as of this encounter Visit Diagnoses Not on filedocumented in this encounter Additional Health Concerns Assessment Noted Time PHQ-9 Depression Total Score: 12/04/2016 4:02 PM CS T documented as of this encounter
--- OUTSIDE RECORDS SUMMARY | 2022-06-17 07:55 | XMS_ITS | Encounter Summary ---
:2000 Author Organization [facility] Address [address] [place] [address] Care Team Providers Name Role Phone Unavailable Primary Care Provider Unavailable Encounter Details Date Type Department Care Team Description 05/05/2010 Hospital Encounter HX [facility] Mary Matute M.D. [address] [place], [place] [address] (Wo rk) Social History Tobacco [...] - Inhaled Oxygen Concentration - - Weight 32.9 kg (72 lb 8.5 oz) 11/28/2009 8:04 AM SURGICAL FIRST ASSISTANT Height 126 cm (4' 1.61) 11/28/2009 8:04 AM SURGICAL FIRST ASSISTANT Body Mass Index 20.72 11/28/2009 8:04 AM SURGICAL FIRST ASSISTANT Body Mass Index Percentile 97.75 % 11/28/2009 8:04 AM CS T Growth Chart: [facility] (Boys, 2-20 Years) documented in this encounter Procedure Notes Poppy Evans - 05/05/2010 9:40 AM CDT PPD Reading PPD Reading Entered On: 05/05/2010 9:40 CDT Performed On: 05/05/2010 9:40 CDT by POPPY REIS PPD Reading MM of Induration: 0mm PPD Interpretation: Negative POPPY REIS - 05/05/2010 9:40 CDT Source: [facility] [employer]CHART Document Id: [id number] CDT!4 documented in this encounter Miscellaneous Notes Miscellaneous - Poppy Evans - 11/28/2009 8:04 AM CST Pediatric Growth Pediatric Growth Entered On: 05/05/2010 8:05 CDT Performed On: 11/28/2009 8:04 SURGICAL FIRST ASSISTANT by POPPY REIS Pediatric Growth Height: 126.00cm(Converted to: 4ft 2in, 4.13ft, 49.61in) Actual Weight: 32.900kg(Converted to: 72lb 9oz, 72.532lb, 1,160.513oz) Body Mass Index: 21kg/m2 POPPY REIS - 05/05/2010 8:04 CDT Source: [employer] Document Id: [id number] CDT!5 Poppy Jackson - 01/11/2009 8:05 AM CDT Pediatric Growth Pediatric Growth Entered On: 05/05/2010 8:05 CDT Performed On: 01/11/2009 8:05 CDT by POPPY REIS Pediatric Growth Height: 119.50cm(Converted to: 3ft 11in, 3.92ft, 47.05in) Actual Weight: 29.100kg(Converted to: 64lb 2oz, 64.155lb, 1,026.472oz) Body Mass Index: 20kg/m2 POPPY REIS - 05/05/2010 8:05 CDT Source: [employer] Document Id: [id number] CDT!5 Poppy Jackson - 01/10/2008 8:05 AM CDT Pediatric Growth Pediatric Growth Entered On: 05/05/2010 8:05 CDT Performed On: 01/10/2008 8:05 CDT by POPPY REIS Pediatric Growth Height: 114.00cm(Converted to: 3ft 9in, 3.74ft, 44.88in) Actual Weight: 24.300kg(Converted to: 53lb 9oz, 53.572lb, 857.157oz) Body Mass Index: 19kg/m2 POPPY REIS - 05/05/2010 8:05 CDT [facility] Document Id: [id number] CDT!5 documented in this encounter Plan of Treatment Not on filedocumented as of this encounter Visit Diagnoses Not on filedocumented in this encounter
--- OUTSIDE RECORDS SUMMARY | 2022-06-17 07:55 | XMS_ITS | Encounter Summary ---
:2000 Author Organization [facility] Address [address] [place] [address] Care Team Providers Name Role Phone Unavailable Primary Care Provider Unavailable Encounter Details Date Type Department Care Team Description 11/17/2010 Hospital En[facility] Minesh Matute M.D. [address] [place], [place] [address] (Wo rk) Social History Tobacco Use Types Packs/Day Years Used Date Smoking Tobacco: Never Assessed Sex Assigned at Date Recorded Not on file documented as of this encounter Miscellaneous Notes Miscellaneous - Milady Matute M.D. - 11/18/2010 10:11 AM CST Results Notification Document Contains Addenda Addendum by POPPY REIS on 18 November 2010 10:15:10 INFORMATION OPERATOR Called Yudi and informed her, she will contact family and schedule an appointment. From: MILADY MATUTE MD To: POPPY REIS; Sent: 11/18/2010 10:11:57 INFORMATION OPERATOR Show up: 11/18/2010 10:11:00 INFORMATION OPERATOR Subject: Results Notification Please call electronics teacher to notify mom. Galdamezs TSH is at the very upper limits of normal. I recommend recheck with an additional test to look for antibodies to thyroid in 1 month. This can be a lab only appointment. It is non-fasting. Results: 11/17/2010 08:27 TSH, Sensitive-Lequire 5.0 MIU/L 11/17/2010 08:27 T4 Free-Guerrier 1.2 ng/dL Source: [facility] [employer] Document Id: [id number] Miscellaneous - Milady Matute M.D. - 11/17/2010 12:23 PM CST Results Notification Document Contains Addenda Addendum by POPPY REIS on 17 November 2010 13:05:37 INFORMATION OPERATOR Spoke to Yudi, she will call mom. From: MILADY MATUTE MD To: POPPY REIS; Sent: 11/17/2010 12:23:41 INFORMATION OPERATOR Show up: 11/17/2010 12:23:00 INFORMATION OPERATOR Subject: Results Notification Call electronics teacher to let mom know that Kodi's labs are all normal. No diabetes, no liver disease, cholesterol in the healthy range. Results: 11/17/2010 08:27 AST 20 unit/L 11/17/2010 08:27 ALT 17 unit/L 11/17/2010 08:27 Hgb A1c 5.4 % [facility] Document Id: [id number] documented in this encounter Plan of Treatment Not on filedocumented as of this encounter Visit Diagnoses Not on filedocumented in this encounter
--- OUTSIDE RECORDS SUMMARY | 2022-06-17 07:55 | XMS_ITS | Encounter Summary ---
:2000 Author Organization [facility] Address [address] [place] [address] Care Team Providers Name Role Phone Unavailable Primary Care Provider Unavailable Encounter Details Date Type Department Care Team Description 01/19/2008 Hospital Encounter HX [facility]-Par[facility] Sims Jr., M.D. [address] [place] [address] (Wo rk) Social History Tobacco Use Types Packs/Day Years Used Date Smoking Tobacco: Never Assessed Sex Assigned at Date Recorded Not on file documented as of this encounter Plan of Treatment Not on filedocumented as of this encounter Visit Diagnoses Not on filedocumented in this encounter
[2022-06-17 11:18] LABS: Albumin* 4.1 g/dL (3.3-5.0); Chloride* 104 mmol/L (96-114)
[2022-06-17 11:19] LABS: Potassium* 3.9 mmol/L (3.6-5.1); Sodium* 138 mmol/L (135-149)
[2022-06-17 11:21] LABS: Alanine Aminotransferase* 35 U/L (4-50); Alkaline Phosphatase* 95 U/L (65-260); Aspartate Amino Transferase* 26 U/L (12-35); Bilirubin Total* 0.3 mg/dL (0.1-1.5); Blood Urea Nitrogen* 21 mg/dL (5-24); Carbon Dioxide* 25 mmol/L (20-32); Cholesterol* 154 mg/dL (90-199); Creatinine* 0.8 mg/dL (0.6-1.2); Estimated Glomerular Filt Rate 131 ml/min; Glucose* 107 mg/dL (60-115); Total Protein* 6.9 g/dL (6.0-8.3)
[2022-06-17 11:22] LABS: Calcium* 9.1 mg/dL (8.7-10.8); HDL Cholesterol* 46 mg/dL (>=40); LDL Cholesterol Calculated 80 mg/dL (<100); Triglycerides* 142 mg/dL (40-149)
[2022-06-17 11:55] LABS: Ferritin* 33.7 ng/mL (17.9-464.0)
== END 2022-06-17 07:58 | disposition home or self-care (01) ==
PROVIDERS: PCP Family Medicine; Visit Provider Family Medicine
DX: R63.5 Abnormal weight gain (principal); E61.1 Iron deficiency; Z13.6 Encounter for screening for cardiovascular disorders; Z13.1 Encounter for screening for diabetes mellitus
CPT/HCPCS: 80053; 80061; 82728; 84439; 84443

== ENCOUNTER 2022-08-01 12:44 | Emergency (ER) | payer BC, SELFPAY ==
[2022-08-01 13:13] VITALS: BP 138/83; PULSE 120; RESP 20; TEMP 37.4; O2SAT 97; BMI 36.5
--- NOTE | 2022-08-01 14:19 | ED.NURSE ---
left without being seen
--- OUTSIDE RECORDS SUMMARY | 2022-08-01 14:20 | XMS_ITS | Encounter Summary ---
:2002 Author Organization [facility] Address [address] [place] [address] Care Team Providers Name Role Phone Unavailable Primary Care Provider Unavailable Encounter Details Date Type Department Care Team Description 12/19/2010 Hospital Encounter [facility] Mary Matute M.D. [address] [place], [place] [address] (Wo rk) Social History Tobacco [...] - Inhaled Oxygen Concentration - - Weight 36.5 kg (80 lb 7.5 oz) 12/19/2010 3:41 PM CDT Height - - Body Mass Index - - documented in this encounter Progress Notes Milady Matute M.D. - 12/19/2010 12:00 AM CDT [id number] CHIEF COMPLAINT/ REASON FOR VISIT Dry skin HISTORY OF PRESENT ILLNESS Tahmina is 10 years old and here with his mother and international nurse, Yudi. He has had problems with dry skin. This is mostly noticed on his arms, around his elbows. It is very itchy and uncomfortable for him. He does not like to use lotions very often. They do have some Vaseline at home. They use a variety of soaps and usually take showers every day to every other day. He has had this problem for quite awhile but over the past week or two it has been much worse. CURRENT MEDICATIONS 1. Hydrocortisone 2.5% ointment applied topically twice daily p.r.n. ALLERGIES No known drug allergies. VITAL SIGNS WEIGHT: 36.5 kg TEMPERATURE: 36.6 HEART RATE: 90 RESPIRATORY RATE: 22 BLOOD PRESSURE: 90/54 PHYSICAL EXAM GENERAL: Comfortable, in no distress. SKIN: Overall very dry with dry rough, mildly erythematous plaques noted around the antecubs, also on the extensor surfaces of the forearms and dorsum of the hands. Legs with dry rough skin but no discrete plaques. No papules, no pustules, no vesicles. Some areas of poorly demarcated hypopigmentation. HEART: Regular rate and rhythm without murmurs. LUNGS: Lungs are clear to auscultation bilaterally. IMPRESSION/REPORT/PLAN Eczematous flare. We discussed good basic skin care including minimizing soap. I recommend a moisturizer containing soap. Also thick fragrance free and dye free lotion. Prescription is sent for hydrocortisone 2.5% ointment which can be used up to twice daily for up to 2 weeks in a row. KSL/glt Signed Milady Matute M.D. Cheese Cutter Electronically Signed By: MILADY MATUTE MD On: 12/26/2010 03:39 Source: [facility] MHSDOLBEYNONRADSYS Document Id: [id number] documented in this encounter Miscellaneous Notes Miscellaneous - Milady Matute M.D. - 12/19/2010 3:56 PM CDT Ambulatory Patient Summary [address] [address] Visit Information Name: TAHMINA CORONADO Current Date: 12/19/2010 15:56:10 Primary Care Provider: MILADY MATUTE MD Your Medications Here is a list of your medications. It is important to take your medications as directed. Use a pillbox or chart to help remind you to take your medications. Please let your doctor or nurse know if you have problems taking your medications. Medication/Strength Dose Route Frequency Indications/Special Instructions/Comments hydrocortisone topical (hydrocortisone topical 2.5% ointment) 1 daksha Topical two times a day diphenhydrAMINE (Benadryl 12.5 mg/5 mL oral LIQ) [...] Upcoming Appointments Date Time Location Reason Provider No Appointments found Your Goals/Additional instructions: Source: [employer] Document Id: [id number] Miscellaneous - Milady Matute M.D. - 12/19/2010 3:56 PM CDT Ambulatory Depart Summary [address] [address] Visit Information Name: TAHMINA CORONADO Current Date: 12/19/2010 15:56:10 Primary Care Provider: MILADY MATUTE MD SINABEBEYRNTAHMINA has been given the following list of medications: Your Medications It is important to take your medications as directed. Use a pill box or chart to help remind you to take your medications. Please let your doctor or nurse know if you have problems taking your medications. Medication/Strength Dose Route Frequency Indications/Special Instructions/Comments hydrocortisone topical (hydrocortisone topical 2.5% ointment) 1 daksha Topical two times a day diphenhydrAMINE (Benadryl 12.5 mg/5 mL oral LIQ) 10 mL Oral three times a day as needed for Rash Additional Information: Yes - Current list of reconciled medications is provided and explained to the patient and/or family, guardian/caregiver. Source: [employer] Document Id: [id number] Miscellaneous - Poppy Evans - 12/19/2010 3:41 PM CDT Pediatric Senior [employer] Intake/History Pediatric Senior [employer] Intake/History Entered On: 12/19/2010 15:41 CDT Performed On: 12/19/2010 15:41 CDT by POPPY REIS Intake Chief Complaint: dry skin Temperature Core: 36.6C(Converted to: 97.9DegF) Apical Heart Rate: 90/min Respiratory Rate: 22/min Systolic Blood Pressure: 90mmHg (<LLOW) Diastolic Blood Pressure: 54mmHg NIBP Mean: 66mmHg BP Location: Right upper extremity Actual Weight: 36.500kg(Converted to: 80lb 7oz) Dosing Weight Clinic: 36.50kg POPPY REIS - 12/19/2010 15:41 CDT Subjective Pain Symptoms: No POPPY REIS - 12/19/2010 15:41 CDT Dependent Habits Tobacco Use/Currently Using: No POPPY REIS - 12/19/2010 15:41 CDT Allergy Allergies (Active) NKA Estimated Onset Date: Unspecified ; Created By: POPPY REIS; Reaction Status: Active ; Category: Drug ; Substance: NKA ; Type: Allergy ; Updated By: POPPY REIS; Reviewed Date: 12/19/201015:41 CDT [facility] Document Id: [id number] CDT!16 documented in this encounter Plan of Treatment Not on filedocumented as of this encounter Visit Diagnoses Not on filedocumented in this encounter
--- OUTSIDE RECORDS SUMMARY | 2022-08-01 14:20 | XMS_ITS | Encounter Summary ---
:2000 Author Organization [facility] Address [address] [place] [address] Care Team Providers Name Role Phone Unavailable Primary Care Provider Unavailable Encounter Details Date Type Department Care Team Description 11/19/2014 [facility] [address] [place], [place] [address] (Wo rk) Social History Tobacco Use Types Packs/Day Years Used Date Smoking Tobacco: Never Assessed Sex Assigned at Date Recorded Not on file documented as of this encounter Progress Notes Wisam Narvaez M.D. - 11/19/2014 4:03 PM CST [id number] The documentation for this visit is available in [employer] IMPRESSION/REPORT/PLAN A) hyperopia, mild, excellent vision, no need for glasses at this time P) RTo 1-2 years Wisam Navraez M.D./kermit Electronically Signed By: WISAM NARVAEZ MD On: 11/23/2014 11:04 AM Source: [facility] [employer]OLBEYNONRADSYS Document Id: [id number] W REMOVER documented in this encounter Miscellaneous Notes Miscellaneous - Wisam Narvaez M.D. - 11/19/2014 4:55 PM CST Ambulatory Patient Summary [place] [address] [place] [id number] Visit Information Name: TAHMINA CORONADO [facility] Number: [id number] Current Date: 11/19/2014 16:55:24 Physicians [...] appointment detail needed. Your Goals/Additional instructions: Source: [facility] [employer]ART Document Id: [id number] W REMOVER Miscellaneous - Wisam Narvaez M.D. - 11/19/2014 4:55 PM CST Ambulatory Discharge Medication List [address] [id number] Visit Information Name: TAHMINA CORONADO [facility] Number: [id number] Visit Date: 11/19/2014 16:55:24 Attending Provider: WISAM NARVAEZ MD Primary Care Provider: PCP, ELSEWHERE SARTHAK TAHMINA has been given the following list of [...] MD Signed On:19-NOV-2014 16:55:21 Additional Information: Source: [facility] POWERCHART Document Id: [id number] W REMOVER documented in this encounter Plan of Treatment Not on filedocumented as of this encounter Visit Diagnoses Not on filedocumented in this encounter
--- OUTSIDE RECORDS SUMMARY | 2022-08-01 14:20 | XMS_ITS | Encounter Summary ---
:2000 Author Organization [facility] Address [address] [place] [address] Care Team Providers Name Role Phone Unavailable Primary Care Provider Unavailable Encounter Details Date Type Department Care Team Description 01/19/2008 Hospital Encounter [facility] [address], [place] [address] (Wo rk) Social History Tobacco Use Types Packs/Day Years Used Date Smoking Tobacco: Never Assessed Sex Assigned at Date Recorded Not on file documented as of this encounter Plan of Treatment Not on filedocumented as of this encounter Visit Diagnoses Not on filedocumented in this encounter
--- OUTSIDE RECORDS SUMMARY | 2022-08-01 14:20 | XMS_ITS | Encounter Summary ---
:2002 Author Organization [facility] Address [address] [place] [address] Care Team Providers Name Role Phone Unavailable Primary Care Provider Unavailable Encounter Details Date Type Department Care Team Description 11/17/2010 Hospital Encounter [facility]X [facility] Minesh Matute M.D. [address] [place], [place] [address] (Wo rk) Social History Tobacco Use Types Packs/Day Years Used Date Smoking Tobacco: Never Assessed Sex Assigned at Date Recorded Not on file documented as of this encounter Plan of Treatment Not on filedocumented as of this encounter Visit Diagnoses Not on filedocumented in this encounter
--- OUTSIDE RECORDS SUMMARY | 2022-08-01 14:20 | XMS_ITS | Encounter Summary ---
:2002 Author Organization [facility] Address [address] [place] [address] Care Team Providers Name Role Phone Unavailable Primary Care Provider Unavailable Encounter Details Date Type Department Care Team Description 12/16/2010 Hospital Encounter [facility]X [facility] Minesh Matute M.D. [address] [place], [place] [address] (Wo rk) Social History Tobacco Use Types Packs/Day Years Used Date Smoking Tobacco: Never Assessed Sex Assigned at Date Recorded Not on file documented as of this encounter Plan of Treatment Not on filedocumented as of this encounter Visit Diagnoses Not on filedocumented in this encounter
--- OUTSIDE RECORDS SUMMARY | 2022-08-01 14:20 | XMS_ITS | Encounter Summary ---
:2002 Author Organization [facility] Address [address] [place] [address] Care Team Providers Name Role Phone Unavailable Primary Care Provider Unavailable Encounter Details Date Type Department Care Team Description 05/02/2010 Hospital Encounter [facility]X [facility] Mary Matute M.D. [address] [place], [place] [address] (Wo rk) Social History Tobacco Use Types Packs/Day Years Used Date Smoking Tobacco: Never Assessed Sex Assigned at Date Recorded Not on file documented as of this encounter Plan of Treatment Not on filedocumented as of this encounter Visit Diagnoses Not on filedocumented in this encounter
--- OUTSIDE RECORDS SUMMARY | 2022-08-01 14:20 | XMS_ITS | Clinical Summary ---
:2002 Author Organization [facility] [place] [address] Care Team Providers Name Role Phone Ele Matute MD Unavailable Zachery Mathews MD Primary Care Provider Berta Suarez NP Unavailable Unavailable Allergies Active Allergy Reactions Severity Noted Date Comments Lurasidone Anaphylaxis High 02/18/[address], SHORTNESS OF BREATH, unable to talk, swelling of lips (no docume ntation yet of ER visit) Medications Medication Sig Dispensed Refills Start End Date Status Date levothyroxine Take 50 mcg by 0 A ctive (SYNTHROID) 50 mcg mouth once 2 tablet daily. hydrOXYzine pamoate Take 1 Capsule 30 Capsule 2 Active (VistariL) 50 mg (50 mg) by 2 capsuleIndications: mouth 3 times Anxiety daily if needed for Anxiety. melatonin 5 mg tab Take 1 Tablet 30 Tablet 2 Active tabletIndications: (5 mg) by 2 Schizophrenia, mouth at undifferentiated bedtime if (HC) needed, may repeat once for Sleep. sertraline (ZOLOFT) Take 1 Tablet 30 Tablet 1 Active 50 mg (50 mg) by 2 tabletIndications: mouth once Anxiety disorder, daily. unspecified type, Severe episode of recurrent major depressive disorder, with psychotic features (HC) lamoTRIgine Take 1 tablet 60 Tablet 1 Acti ve (LaMICtal) 25 mg daily for 2 2 tabletIndications: weeks, then 1 Severe episode of tablet twice a recurrent major day depressive disorder, with psychotic features (HC) hydrOXYzine pamoate Take 1 Capsule 90 Capsule 2 07/05 Discontinued (VistariL) 50 mg (50 mg) by 2 (R eorder capsuleIndications: mouth 3 times (E-cancel not Anxiety daily if sent)) needed for Anxiety. melatonin 5 mg tab Take 1 Tablet 30 Tablet 2 0 Discontinued tabletIndications: (5 mg) by 2 ( Reorder Schizophrenia, mouth at (E-ca ncel not undifferentiated bedtime if se nt)) (HC) needed, may repeat once for Sleep. benztropine Take 1 Tablet 60 Tablet 2 07/31/20 Disc ontinued (COGENTIN) 1 mg (1 mg) by 2 (*Me d tabletIndications: mouth two c omplete/Regime Pain in extremity, times daily. n unspecified complete /Level extremity, Abnormal of care change) increased muscle tone, Generalized stiffness sertraline (ZOLOFT) Take 1 Tablet 30 Tablet 2 Discontinued 50 mg (50 mg) by 2 (Reorder tabletIndications: mouth once (E-cancel not Anxiety disorder, daily. se nt)) unspecified type, Severe episode of recurrent major depressive disorder, with psychotic features (HC) Invega Sustenna 234 ADMINISTER 1.5 1.5 mL 0 07/21 Discontinued mg/1.5 mL ML IN THE 2 22 intramuscular MUSCLE EVERY 3 syringeIndications: WEEKS Schizophrenia, undifferentiated (HC) Invega Sustenna 234 ADMINISTER 1.5 1.5 mL 5 07/31 Discontinued mg/1.5 mL ML IN THE 2 22 (*Med intramuscular MUSCLE EVERY 3 c omplete/Regime syringeIndications: WEEKS n Schizophrenia, compl ete/Level undifferentiated of care change) (HC) Active Problems Problem Noted Date Schizophrenia, [...] Encounters Date Type Specialty Care Team Description 07/31/2022 Telemedicine Ugo Thomason Medication REHAN Pereira (Virtual Visi t ) 07/21/2022 Telephone Ugo Thomason MBBS 07/21/2022 Refill Ugo Thomason Refill Reques t (Invega REHAN Fuentes Sustenna) 07/16/2022 Telephone Ugo Thomason Medication REHAN Peerira 07/03/2022 Telephone Ugo Thomason MBBS 06/29/2022 Refill Ugo Thomason Refill Reques t (Benztropine) REHAN Fuentes 06/26/2022 Refill Ugo Thomason Refill Reques t (InvREHAN Mclaughlin Sustenna) 06/24/2022 Refill Ugo Thomason Refill Reques t REHAN Fuentes 06/23/2022 Telemedicine Ugo Thomason Medication REHAN Pereira (Virtual Visi t ) 06/22/2022 Telephone Ugo Thomason Follow Up REHAN Fuentes 05/22/2022 Telemedicine Ugo hTomason Ma, MBBS (Virtual Visi t) from Last 3 Months Immunizations Name Administration Dates Next Due DTaP 01/10/2008, 03/10/2004 [id number] (Pediarix) 05/25/2003, 03/19/2003, 2002 HIB PRP-OMP (PedvaxHIB) [...] Encounters Date Type Specialty Care Team Description 09/04/2022 Telemedicine Ugo Thomason MBBS [address] [place], [place] [address] (Wo rk) Health Maintenance Due Date Last Done Comments Well Child Check for age 0111/01/2007 11/01/2006 3-20 BMI (ht and wt on same day) 2020 for age 18+ Hepatitis C screening for 2020 age 18-79 Influenza for age 9-49 06/04/2022 07/04/2016, 2015, 08/22/2014, Additional history exists COVID-19 vaccine series (2 - 08/20/2022 07/23/2022 Moderna series) Depression screening for age 0603/10/2023 03/10/2022, 022, [...] ss Type Group UCARE [place] UCARE [place] [id number] 2014-Present [address] [place] [address] [employer] [id number] 2018-Present [address] [address] [place] [address] MED[place] [id number] 2014-Present [address] [address] [place] [address] (Home) [place] [address] MAR[place] CORONADO Personal/Family Mother [phone] [address] (Home) [address] [place] [address] Advance Directives Latest Code Status on File Code Status Date Activated Date Inactivated Comments Full Code 01/20/2022 8:36 PM 03/04/2022 11:21 AM Code Status Discussion: Other Care Teams Braid Maker Relationship Specialty Start Date End Date Zachery Mathews MD PCP - General Family Practice 12/28/[address] [place] [address] [place] [address] Ele Matute MD 05/03/14 Berta Suarez NP Psychiatry Nurse Practitioner 01/18/17
--- OUTSIDE RECORDS SUMMARY | 2022-08-01 14:20 | XMS_ITS | Encounter Summary ---
:2002 Author Organization [facility] Address [address] [place] [address] Care Team Providers Name Role Phone Unavailable Primary Care Provider Unavailable Encounter Details Date Type Department Care Team Description 12/01/2010 Hospital Encounter [facility]X [facility] Mary Matute M.D. [address] [place], [place] [address] (Wo rk) Social History Tobacco [...] (81 lb 2.1 oz) 12/01/2010 3:18 PM TRAUMA NURSE Height - - Body Mass Index - - documented in this encounter Progress Notes Milady Matute M.D. - 12/01/2010 12:00 AM CST [id number] CHIEF COMPLAINT/ REASON FOR VISIT Suture removal HISTORY OF PRESENT ILLNESS [place] 10 years old and here with his mother, sister and parts interpreter, Yudi. He presented to the Emergency Department [...] as needed. KSL/glt Signed Milady Matute M.D. Rail Manager Electronically Signed By: MILADY MATUTE MD On: 12/04/2010 09:48 Source: [facility] MHSDOLBEYNONRADSYS Document Id: [id number] MA NURSE documented in this encounter Miscellaneous Notes Miscellaneous - Milady Matuet M.D. - 12/01/2010 3:39 PM CST Ambulatory Patient Summary [place] [id number] Visit Information Name: TAHMINA CORONADO Current Date: 12/01/2010 15:39:23 Primary Care Provider: MILADY MATUTE MD [phone] Your Medications Here is a list of [...] 16:15 [facility] Lab Your Goals/Additional instructions: Source: [facility] [employer] Document Id: [id number] Miscellaneous - Poppy Evans - 12/01/2010 3:18 PM CST Pediatric Rag Grader Intake/History Pediatric Rag Grader Intake/History Entered On: 12/01/2010 15:19 TRAUMA NURSE Performed On: 12/01/2010 15:18 TRAUMA NURSE by POPPY REIS Intake Ambulatory Intake Additional Information: L index at base, 4 stitches. 1 1/2 cm MILADY MATUTE MD - 12/01/2010 15:28 TRAUMA NURSE Chief Complaint: stitch removal Temperature Core: 36.6C(Converted to: 97.9DegF) Apical Heart Rate: 88/min Respiratory Rate: 22/min Systolic Blood Pressure: 94mmHg Diastolic Blood Pressure: 56mmHg NIBP Mean: 69mmHg BP Location: Right upper extremity Actual Weight: 36.800kg(Converted to: 81lb 2oz) Dosing Weight Clinic: 36.80kg POPPY REIS - 12/01/2010 15:18 TRAUMA NURSE Subjective Pain Symptoms: No POPPY REIS - 12/01/2010 15:18 TRAUMA NURSE Dependent Habits Tobacco Use/Currently Using: No POPPY REIS - 12/01/2010 15:18 TRAUMA NURSE Allergy Allergies (Active) NKA Estimated Onset Date: Unspecified ; Created By: POPPY REIS; Reaction Status: Active ; Category: Drug ; Substance: NKA ; Type: Allergy ; Updated By: POPPY REIS; Reviewed Date: 11/10/201016:21 TRAUMA NURSE Source: [facility] [employer] Document Id: [id number] TRAUMA NURSE!3 MA NURSE documented in this encounter Plan of Treatment Not on filedocumented as of this encounter Visit Diagnoses Not on filedocumented in this encounter
--- OUTSIDE RECORDS SUMMARY | 2022-08-01 14:20 | XMS_ITS | Encounter Summary ---
:2002 Author Organization [facility] Address [address] [place] [address] Care Team Providers Name Role Phone Unavailable Primary Care Provider Unavailable Encounter Details Date Type Department Care Team Description 05/05/2010 Hospital Encounter HX [facility] Mary Matute M.D. [address] [place], [place] [address] (Wo rk) Social History Tobacco [...] (72 lb 8.5 oz) 11/28/2009 8:04 AM WHEEL GRINDER Height 126 cm (4' 1.61) 11/28/2009 8:04 AM WHEEL GRINDER Body Mass Index 20.72 11/28/2009 8:04 AM WHEEL GRINDER Body Mass Index Percentile 97.75 % 11/28/2009 8:04 AM CS T Growth Chart: [facility] (Boys, 2-20 Years) documented in this encounter Procedure Notes Poppy Evans - 05/05/2010 9:40 AM CDT PPD Reading PPD Reading Entered On: 05/05/2010 9:40 CDT Performed On: 05/05/2010 9:40 CDT by POPPY REIS PPD Reading MM of Induration: 0mm PPD Interpretation: Negative POPPY REIS - 05/05/2010 9:40 CDT Source: [facility] POWERCHART Document Id: [id number] CDT!4 documented in this encounter Miscellaneous Notes Miscellaneous - Poppy Evans - 11/28/2009 8:04 AM CST Pediatric Growth Pediatric Growth Entered On: 05/05/2010 8:05 CDT Performed On: 11/28/2009 8:04 WHEEL GRINDER by POPPY REIS Pediatric Growth Height: 126.00cm(Converted to: 4ft 2in, 4.13ft, 49.61in) Actual Weight: 32.900kg(Converted to: 72lb 9oz, 72.532lb, 1,160.513oz) Body Mass Index: 21kg/m2 POPPY REIS - 05/05/2010 8:04 CDT Source: [employer] Document Id: [id number] CDT!5 Poppy Jackson - 01/11/2009 8:05 AM CDT Pediatric Growth Pediatric Growth Entered On: 05/05/2010 8:05 CDT Performed On: 01/11/2009 8:05 CDT by POPPY REIS Pediatric Growth Height: 119.50cm(Converted to: 3ft 11in, 3.92ft, 47.05in) Actual Weight: 29.100kg(Converted to: 64lb 2oz, 64.155lb, 1,026.472oz) Body Mass Index: 20kg/m2 POPPY REIS - 05/05/2010 8:05 CDT Source: [employer] Document Id: [id number] CDT!5 Poppy Jackson - 01/10/2008 8:05 AM CDT Pediatric Growth Pediatric Growth Entered On: 05/05/2010 8:05 CDT Performed On: 01/10/2008 8:05 CDT by POPPY REIS Pediatric Growth Height: 114.00cm(Converted to: 3ft 9in, 3.74ft, 44.88in) Actual Weight: 24.300kg(Converted to: 53lb 9oz, 53.572lb, 857.157oz) Body Mass Index: 19kg/m2 POPPY REIS - 05/05/2010 8:05 CDT Source: [facility] Document Id: [id number] CDT!5 documented in this encounter Plan of Treatment Not on filedocumented as of this encounter Visit Diagnoses Not on filedocumented in this encounter
--- OUTSIDE RECORDS SUMMARY | 2022-08-01 14:20 | XMS_ITS | Encounter Summary ---
:2002 Author Organization [facility] Address [address] [place] [address] Care Team Providers Name Role Phone Unavailable Primary Care Provider Unavailable Encounter Details Date Type Department Care Team Description 08/22/2014 Hospital Encounter HX [facility] Mary Matute M.D. [address] [place], [place] [address] (Wo rk) Social History Tobacco [...] (117 lb 15.1 oz) 08/22/2014 3:10 PM JIG BORING MACHINE OPERATOR FOR METAL Height 151 cm (4' 11.45) 08/22/2014 3:10 PM JIG BORING MACHINE OPERATOR FOR METAL Body Mass Index 23.46 08/22/2014 3:10 PM JIG BORING MACHINE OPERATOR FOR METAL Body Mass Index Percentile 94.04 % 08/22/2014 3:10 PM CS T Growth Chart: [facility] (Boys, 2-20 Years) documented in this encounter H&P Notes Milady Matute M.D. - 08/22/2014 2:58 PM CST [id number] CHIEF COMPLAINT/REASON FOR VISIT A 13-year-old well-child [...] his teeth hurt when he brushes them. [place] likes to be outside, but not when [...] home. He is in 6th grade at [employer] and does okay in school. FAMILY [...] discuss age-appropriate anticipatory guidance and safety issues. Tahmina received today hepatitis A #2, Tdap booster, [...] MATUTE MD On: 08/23/2014 11:59 AM Source: [facility] MHSDOLBEYNONRADSYS Document Id: [id number] BORING MACHINE OPERATOR FOR METAL documented in this encounter Procedure Notes Lisa Baeza L.PKang. - 08/22/2014 4:22 PM CST Vision Testing Vision Testing Entered On: 08/22/2014 16:22 JIG BORING MACHINE OPERATOR FOR METAL Performed On: 08/22/2014 16:22 JIG BORING MACHINE OPERATOR FOR METAL by LISA BAEZA LPN Vision Testing Corrective Lenses : None Eye, Right w/o Correction : 20/20 Eye, Left w/o Correction : 20/30 LISA BAEZA LPN - 08/22/2014 16:22 JIG BORING MACHINE OPERATOR FOR METAL Source: [facility] POWERCHART Document Id: [id number] JIG BORING MACHINE OPERATOR FOR METAL!5 BORING MACHINE OPERATOR FOR METAL Lisa Baeza L.PKang. - 08/22/2014 4:21 PM CST Hearing Point of Care Testing - Audiometer Hearing Point of Care Testing - Audiometer Entered On: 08/22/2014 16:22 JIG BORING MACHINE OPERATOR FOR METAL Performed On: 08/22/2014 16:21 JIG BORING MACHINE OPERATOR FOR METAL by LISA BAEZA LPN Hearing Point of [...] Response LISA BAEZA LPN - 08/22/2014 16:21 JIG BORING MACHINE OPERATOR FOR METAL LISA BAEZA LPN - 08/22/2014 16:21 JIG BORING MACHINE OPERATOR FOR METAL LISA BAEZA LPN - 08/22/2014 16:21 JIG BORING MACHINE OPERATOR FOR METAL LISA BAEZA LPN - 08/22/2014 16:21 JIG BORING MACHINE OPERATOR FOR METAL Right Ear Hearing POC Test Grid Right Ear 20 db Right Ear 25 db Right Ear 30 db Right Ear 40 db 500 Hz : Response Response Response Response 1000 Hz : Response Response Response Response 2000 Hz : Response Response Response Response 4000 Hz : Response Response Response Response LISA BAEZA LPN - 08/22/2014 16:21 JIG BORING MACHINE OPERATOR FOR METAL LISA BAEZA LPN - 08/22/2014 16:21 JIG BORING MACHINE OPERATOR FOR METAL LISA BAEZA LPN - 08/22/2014 16:21 JIG BORING MACHINE OPERATOR FOR METAL LISA BAEZA LPN - 08/22/2014 16:21 JIG BORING MACHINE OPERATOR FOR METAL Source: [facility] POWERCHART Document Id: [id number] JIG BORING MACHINE OPERATOR FOR METAL!44 BORING MACHINE OPERATOR FOR METAL documented in this encounter Miscellaneous Notes Miscellaneous - Milady Matute M.D. - 08/22/2014 3:38 PM CST Ambulatory Patient Summary [address] [id number] Visit Information Name: TAHMINA CORONADO [facility] Number: [id number] Current Date: 08/22/2014 15:38:24 Physicians [...] appointment detail needed. Your Goals/Additional instructions: Source: [facility] POWERCHART Document Id: [id number] BORING MACHINE OPERATOR FOR METAL Miscellaneous - Milady Matute M.D. - 08/22/2014 3:38 PM CST Ambulatory Discharge Medication List [place] - [address] [place] Clifford [phone] Visit Information Name: TAHMINA CORONADO [facility] Number: [id number] Visit Date: 08/22/2014 15:38:23 Attending [...] MD Signed On:22-AUG-2014 15:38:21 Additional Information: Source: [facility] POWERCHART Document Id: [id number] BORING MACHINE OPERATOR FOR METAL Miscellaneous - Lisa Baeza, L.P.N. - 08/22/2014 3:10 PM CST Pediatric Doctor Of Naturopathic Medicine Intake/History Pediatric Doctor Of Naturopathic Medicine Intake/History Entered On: 08/22/2014 15:13 JIG BORING MACHINE OPERATOR FOR METAL Performed On: 08/22/2014 15:10 JIG BORING MACHINE OPERATOR FOR METAL by LSIA BAEZA LPN Intake Chief Complaint : well [...] kg/m2 LISA BAEZA LPN - 08/22/2014 15:10 JIG BORING MACHINE OPERATOR FOR METAL General Info Accompanied By : Mother Information Given By : Patient Languages : Swedish, Citizen Of [place] Is Patient Female and 13-50 no hysterectomy : LISA Durant LPN - 08/22/2014 15:10 JIG BORING MACHINE OPERATOR FOR METAL Subjective Pain Symptoms : LISA Durant LPN - 08/22/2014 15:10 JIG BORING MACHINE OPERATOR FOR METAL Dependent Habits Tobacco Use/Currently Using : No Exposure to Tobacco Smoke : Care provider denies smoking in home Smoking Status : Never smoker LISA BAEZA LPN - 08/22/2014 15:10 JIG BORING MACHINE OPERATOR FOR METAL ID Screen Travel Within Last 21 Days : LISA Durant LPN - 08/22/2014 15:10 JIG BORING MACHINE OPERATOR FOR METAL [facility] POWER[facility] Document Id: [id number] JIG BORING MACHINE OPERATOR FOR METAL!31 BORING MACHINE OPERATOR FOR METAL documented in this encounter Plan of Treatment Not on filedocumented as of this encounter Visit Diagnoses Not on filedocumented in this encounter
--- OUTSIDE RECORDS SUMMARY | 2022-08-01 14:20 | XMS_ITS | Encounter Summary ---
:2002 Author Organization [facility] Address [address] [place] [address] Care Team Providers Name Role Phone Unavailable Primary Care Provider Unavailable Encounter Details Date Type Department Care Team Description 12/16/2009 Hospital Encounter HX [facility] CVC-Parvez Sims Jr., M.D. [address], [place] [address] (Wo rk) Social History Tobacco Use Types Packs/Day Years Used Date Smoking Tobacco: Never Assessed Sex Assigned at Date Recorded Not on file documented as of this encounter Plan of Treatment Not on filedocumented as of this encounter Visit Diagnoses Not on filedocumented in this encounter
--- OUTSIDE RECORDS SUMMARY | 2022-08-01 14:20 | XMS_ITS | Encounter Summary ---
:2002 Author Organization [facility] Address [address] [place] [address] Care Team Providers Name Role Phone Unavailable Primary Care Provider Unavailable Encounter Details Date Type Department Care Team Description 11/17/2010 Hospital Encounter HX [facility] Minesh Matute M.D. [address] [place], [place] [address] (Wo rk) Social History Tobacco Use Types Packs/Day Years Used Date Smoking Tobacco: Never Assessed Sex Assigned at Date Recorded Not on file documented as of this encounter Miscellaneous Notes Miscellaneous - Milady Matute M.D. - 11/18/2010 10:11 AM CST Results Notification Document Contains Addenda Addendum by POPPY REIS on 18 November 2010 10:15:10 CERTIFIED SURGICAL FIRST ASSISTANT Called Yudi and informed her, she will contact family and schedule an appointment. From: MILADY MATUTE MD To: POPPY REIS; Sent: 11/18/2010 10:11:57 CERTIFIED SURGICAL FIRST ASSISTANT Show up: 11/18/2010 10:11:00 CERTIFIED SURGICAL FIRST ASSISTANT Subject: Results Notification Please call paraprofessional interpreter to notify mom. Galdamezs TSH is at the very upper limits of normal. I recommend recheck with an additional test to look for antibodies to thyroid in 1 month. This can be a lab only appointment. It is non-fasting. Results: 11/17/2010 08:27 TSH, Sensitive-[place] 5.0 MIU/L 11/17/2010 08:27 T4 Free-[place] 1.2 ng/dL Source: [facility] [employer] Document Id: [id number] Electronically signed by Conversion, [facility] Certified Orthotist/Pedorthist [id number] at 03/07/2017 12:01 PM CDT Miscellaneous - Milady Matute M.D. - 11/17/2010 12:23 PM CST Results Notification Document Contains Addenda Addendum by POPPY REIS on 17 November 2010 13:05:37 CERTIFIED SURGICAL FIRST ASSISTANT Spoke to Yudi, she will call mom. From: MILADY MATUTE MD To: POPPY REIS; Sent: 11/17/2010 12:23:41 CERTIFIED SURGICAL FIRST ASSISTANT Show up: 11/17/2010 12:23:00 CERTIFIED SURGICAL FIRST ASSISTANT Subject: Results Notification Call paraprofessional interpreter to let mom know that Kodi's labs are all normal. No diabetes, no liver disease, cholesterol in the healthy range. Results: 11/17/2010 08:27 AST 20 unit/L 11/17/2010 08:27 ALT 17 unit/L 11/17/2010 08:27 Hgb A1c 5.4 % Source: [facility] Document Id: [id number] Electronically signed by Conversion, [facility] Certified Orthotist/Pedorthist [id number] at 03/07/2017 12:01 PM CDT documented in this encounter Plan of Treatment Not on filedocumented as of this encounter Visit Diagnoses Not on filedocumented in this encounter
--- OUTSIDE RECORDS SUMMARY | 2022-08-01 14:20 | XMS_ITS | Encounter Summary ---
:2002 Author Organization [facility] Address [address] [place] [address] Care Team Providers Name Role Phone Unavailable Primary Care Provider Unavailable Encounter Details Date Type Department Care Team Description 06/03/2015 Hospital Encounter HX [facility] Samantha Santos APRN, C.N.P., M.S.N. [address] [place] [id number] (Wo rk) Social History Tobacco Use Types [...] this encounter Progress Notes Samantha Santos APRN, DIRECTOR OF FINANCIAL REPORTING - 06/03/2015 6:34 PM CDT [id number] CHIEF COMPLAINT/REASON FOR VISIT Infected insect bites. [...] SANTOS CNP On: 06/04/2015 03:07 PM Source: [facility] MHSDOLBEYNONRADSYS Document Id: [id number] documented in this encounter Nursing Notes Samantha [...] the cold source and the skin). ?? [id number] Samantha Fischer, [address] [place] [address], [place] [address]. All rights reserved. This information is not intended as a substitute for professional medical care. Always follow your healthcare professional's instructions. This document has images extracted. Please consider using [employer] for all your patient education needs. Source: [facility] POWERCHART Document Id: [id number] Samantha Santos APRN, CNP - 06/03/2015 7:27 PM CDT Ambulatory Patient Education The following Patient Education Materials have been given to the patient: Patient Education Materials: Source: [facility] POWERCHART Document Id: [id number] documented in this encounter Miscellaneous Notes Miscellaneous - Samantha Santos APRN, CNP - 06/03/2015 7:27 PM CDT Ambulatory Patient Summary [facility] [address] [place] [id number] Visit Information Name: SARTHAKTAHMINA [facility] Number: [id number] Current Date: 06/03/2015 19:27:48 Physicians Attending Provider: SAMANTHA SANTOS CNP Primary Care Provider: PCP, ELSEWHERE SARTHAKTAHMINA has been given the following list of [...] day x 7 day(s) New Routed to [facility] [address] [place], [place] [phone] Stop Taking the Following Medications: Medication list [...] the cold source and the skin). ?? [id number] Samantha RobertsNew [facility], [address] [place] [address], [place] [address]. All rights reserved. This information is not [...] if you dont have one. Go to [email or web address] and click on Create Your Account. Then, follow the directions to complete the online form. Youll be asked for your [facility] number which you can find at the top of this document. Your Goals/Additional instructions: This document has images extracted. Please consider using [employer] for all your patient education needs. Source: [facility] POWERCHART Document Id: [id number] Miscellaneous - Samantha Santos APRN, CNP - 06/03/2015 7:27 PM CDT Ambulatory Discharge Medication List [facility] [address] [place] [id number] Visit Information Name: TAHMINA CORONADO [facility] Number: [id number] Visit Date: 06/03/2015 19:27:47 Attending Provider: SAMANTHA SANTOS CNP Primary Care Provider: PCP, TAHMINA PANIAGUA has [...] day x 7 day(s) New Routed to [address] [phone] Stop Taking the Following Medications: Medication list [...] Signed By: Signed On: Additional Information: Source: [employer] Document Id: [id number] Miscellaneous - Julieta Scanlon C.M.ARussell - 06/03/2015 6:55 PM CDT Ambulatory Vitals Height Weight Ambulatory Vitals Height Weight Entered On: 06/03/2015 18:56 CDT Performed On: 06/03/2015 18:55 CDT by JULIETA SCANLON [facility] Vitals/Ht/Wt Systolic Blood Pressure : 135 mmHg (>HHI) Diastolic Blood Pressure : 73 mmHg NIBP Mean : 94 mmHg BP Location : Right upper extremity Blood Pressure Cuff Size : Regular JULIETA SCANLON [facility] - 06/03/2015 18:55 CDT Source: [employer] Document Id: [id number] CDT!7 Miscellaneous - Julieta Scanlon C.M.ARussell - 06/03/2015 6:52 PM CDT Pediatric Environmental Emergencies Planner Intake/History Pediatric Environmental Emergencies Planner Intake/History Entered On: 06/03/2015 18:54 CDT Performed On: 06/03/2015 18:52 CDT by JULIETA SCANLON [facility] Intake Chief Complaint : bug/flea bites on [...] 06/03/2015 18:52 CDT General Info Languages : Italian, Persian Is Patient Female and 13-50 no hysterectomy : No JULIETA SCANLON CMA - 06/03/2015 18:52 CDT Subjective Pain Symptoms : No JULIETA SCANLON CMA - 06/03/2015 18:52 CDT Dependent Habits Tobacco Use/Currently Using : No Exposure to Tobacco Smoke : Care provider denies smoking in home Smoking Status : Never smoker JULIETA SCANLON CMA - 06/03/2015 18:52 CDT [facility] POWERCHART Document Id: [id number] CDT!22 documented in this encounter Plan of Treatment Not on filedocumented as of this encounter Visit Diagnoses Not on filedocumented in this encounter
--- OUTSIDE RECORDS SUMMARY | 2022-08-01 14:20 | XMS_ITS | Encounter Summary ---
:2000 Author Organization [facility] Address [address] [place] [address] Care Team Providers Name Role Phone Unavailable Primary Care Provider Unavailable Encounter Details Date Type Department Care Team Description 2015 Hospital Encounter HX [facility] Sa edel Moore M.D. [phone] (Wo rk) Social History Tobacco Use Types [...] (127 lb 13.9 oz) 2015 8:30 AM MARBLE AND GRANITE POLISHER Height 163.5 cm (5' 4.37) 2015 8:30 AM MARBLE AND GRANITE POLISHER Body Mass Index 21.7 2015 8:30 AM MARBLE AND GRANITE POLISHER Body Mass Index Percentile 84.36 % 2015 8:30 AM CS T Growth Chart: [facility] (Boys, 2-20 Years) documented in this encounter [...] a pediatric symptom checklist, with regard to [place]'s mental health and behavior. VITAL SIGNS T: [...] all four extremities. Babinski response negative bilaterally. Fflkig-uk-hegb testing normal. Romberg negative. Normal tone. Genitalia: Rakesh IV male. Testicles descended. No hernias or hydroceles. IMPRESSION/REPORT/PLAN Exam Well Line Driver ([facility]) Multisystem 29 Day-17 Year 1. Well teen [...] MOORE MD On: 10/29/2015 07:29 PM Source: Approva Document Id: [id number] LE AND GRANITE POLISHER documented in this encounter Procedure Notes Radha Rivera L.P.N. - 2015 9:05 AM CST Vision Testing Vision Testing Entered On: 2015 9:05 MARBLE AND GRANITE POLISHER Performed On: 2015 9:05 MARBLE AND GRANITE POLISHER by RADHA RIVERA LPN Vision Testing Corrective Lenses : None Eye, Right w/o Correction : 20/20 Eye, Left w/o Correction : 20/20 RADHA RIVERA LPN - 2015 9:05 MARBLE AND GRANITE POLISHER [facility] Document Id: [id number] MARBLE AND GRANITE POLISHER!5 LE AND GRANITE POLISHER Radha Rivera L.P.N. - 2015 9:04 AM CST Hearing Point of Care Testing - Audiometer Hearing Point of Care Testing - Audiometer Entered On: 2015 9:05 MARBLE AND GRANITE POLISHER Performed On: 2015 9:04 MARBLE AND GRANITE POLISHER by RADHA RIVERA LPN Hearing Point of [...] Response RADHA RIVERA LPN - 2015 9:04 MARBLE AND GRANITE POLISHER RADHA RIVERA LPN - 2015 9:04 MARBLE AND GRANITE POLISHER RADHA RIVERA LPN - 2015 9:04 MARBLE AND GRANITE POLISHER RADHA RIVERA LPN - 2015 9:04 MARBLE AND GRANITE POLISHER Left Ear 40 db 500 Hz : Response 1000 Hz : Response 2000 Hz : Response 4000 Hz : Response RADHA RIVERA LPN - 2015 9:04 MARBLE AND GRANITE POLISHER Right Ear Hearing POC Test Grid Right Ear 20 db Right Ear 25 db Right Ear 30 db Right Ear 35 db 500 Hz : Response Response Response Response 1000 Hz : Response Response Response Response 2000 Hz : Response Response Response Response 4000 Hz : Response Response Response Response RADHA RIVERA LPN - 2015 9:04 MARBLE AND GRANITE POLISHER RADHA RIVERA LPN - 2015 9:04 MARBLE AND GRANITE POLISHER RADHA RIVERA LPN - 2015 9:04 MARBLE AND GRANITE POLISHER RADHA RIVERA LPN - 2015 9:04 MARBLE AND GRANITE POLISHER Right Ear 40 db 500 Hz : Response 1000 Hz : Response 2000 Hz : Response 4000 Hz : Response RADHA RIVERA LPN - 2015 9:04 MARBLE AND GRANITE POLISHER [facility] Document Id: [id number] MARBLE AND GRANITE POLISHER!54 LE AND GRANITE POLISHER documented in this encounter Miscellaneous Notes Miscellaneous - Marilynn Moore M.D. - 2015 7:21 PM CST PHQ-9 - Teens PHQ-9 - Teens Entered On: 10/29/2015 19:21 MARBLE AND GRANITE POLISHER Performed On: 2015 19:21 MARBLE AND GRANITE POLISHER by MARILYNN MOORE MD PHQ-9 - Teens [...] No MARILYNN MOORE MD - 10/29/2015 19:21 MARBLE AND GRANITE POLISHER Source: [employer] Document Id: [id number] MARBLE AND GRANITE POLISHER!16 LE AND GRANITE POLISHER Miscellaneous - Marilynn Moore M.D. - 2015 9:40 AM CST Ambulatory Patient Summary [address] [id number] Visit Information Name: TAHMINA CORONADO [facility] Number: [id number] Current Date: 2015 09:40:33 [...] may affect the ovaries or testes Rubella (Pashto measles), a form ofmeasles that, if caught [...] Program recommendations for adults (October 2012). ?? [phone] Samantha Fischer, [address] [place] [address], [place] [address]. All rights reserved. This information is not [...] eaten every day. Save less healthy foods--like maltese fries, candy, and chips--for a special occasion.When [...] damage, so monitor the volume on your SimpliVity music player. Many players let you set [...] advice. Vaccinations Based on recommendations from the [place] [employer], at this visit your [...] private. Posts made on websites like Facebook, [employer], and [employer] can be seen by people they werent intended for. Posts can easily be misunderstood and can even cause trouble for you or your child. Supervise your sydnee use of social networks, chat rooms, and email. Next checkup at: PARENT NOTES: ?? [phone] [facility], [address] [place] [address], [place] [address]. All rights reserved. This information is not [...] if you dont have one. Go to [email or web address] and click on Create Your Account. Then, follow the directions to complete the online form. Youll be asked for your [facility] number which you can find at the top of this document. Your Goals/Additional instructions: This document has images extracted. Please consider using Translimit for all your patient education needs. Source: [facility] POWERCHART Document Id: [id number] LE AND GRANITE POLISHER Flako - Marilynn Moore M.D. - 2015 9:40 AM CST Ambulatory Discharge Medication List [address] [id number] Visit Information Name: TAHMINA CORONADO [facility] Number: [id number] Visit Date: 2015 09:40:32 [...] MD Signed On:24-OCT-2015 09:40:04 Additional Information: Source: [facility] POWERCHART Document Id: [id number] LE AND GRANITE POLISHER Flako - Radha Rivera S, L.P.N. - 2015 8:30 AM CST Pediatric Special Agent Secret Service Intake/History Pediatric Special Agent Secret Service Intake/History Entered On: 2015 8:33 MARBLE AND GRANITE POLISHER Performed On: 2015 8:30 MARBLE AND GRANITE POLISHER by RADHA RIVERA LPN Intake Chief Complaint [...] kg/m2 RADHA RIVERA LPN - 2015 8:30 MARBLE AND GRANITE POLISHER General Info Languages : Martiniquais, Greenlandic Is Patient Female and 13-50 no hysterectomy : RADHA Chu LPN - 2015 8:30 MARBLE AND GRANITE POLISHER Subjective Pain Symptoms : RADHA Chu LPN - 2015 8:30 MARBLE AND GRANITE POLISHER Dependent Habits Exposure to Tobacco Smoke : Care provider denies smoking in home Smoking Status : Never smoker Tobacco 2A : No Tobacco Use/Currently Using : No Tobacco Use/Last 30 Days : No Tobacco Use/Last 12 months : RADHA Chu LPN - 2015 8:30 MARBLE AND GRANITE POLISHER Source: [facility] POWERCHART Document Id: [id number] MARBLE AND GRANITE POLISHER!30 LE AND GRANITE POLISHER documented in this encounter Plan of Treatment Not on filedocumented as of this encounter Visit Diagnoses Not on filedocumented in this encounter Additional Health Concerns Assessment Noted Time PHQ-9 Depression Total Score: 8 2015 7:21 PM MARBLE AND GRANITE POLISHER documented as of this encounter
--- OUTSIDE RECORDS SUMMARY | 2022-08-01 14:20 | XMS_ITS | Encounter Summary ---
:2002 Author Organization [facility] Address [address] [place] [address] Care Team Providers Name Role Phone Unavailable Primary Care Provider Unavailable Encounter Details Date Type Department Care Team Description 12/04/2016 Hospital Encounter HX [facility] Godfrey Moore M.D. [phone] (Wo rk) Social History Tobacco Use Types [...] (143 lb 4.8 oz) 12/04/2016 3:40 PM FERRYBOAT DECKHAND Height 170.5 cm (5' 7.13) 12/04/2016 3:40 PM FERRYBOAT DECKHAND Body Mass Index 22.36 12/04/2016 3:40 PM FERRYBOAT DECKHAND Body Mass Index Percentile 82.98 % 12/04/2016 3:40 PM CS T Growth Chart: [facility] (Boys, 2-20 Years) documented in this encounter H&P Notes Marilynn Moore M.D. - 12/04/2016 8:52 PM CST Clinic Full Note CHIEF COMPLAINT/REASON FOR VISIT wellchild HISTORY OF PRESENT ILLNESS Kodi is here with his mother. He is scheduled for a well teen check. However, from a mental health standpoint he is not at all well. Parent is Italian speaking, little or no Albanian. A phone or digital rn clinical documentation specialist was used for the visit. He was seen in the Emergency room in [place] 3 weeks ago (November 12) stating that he wanted to kill himself --wanted to drown himself. It sounds as though a few days prior to that he was hospitalized in [place] for similar complaints. He was then hospitalized [...] WednesdayDecember 07 with a doctor at the [facility] prior to him seeing their psychologist. Mother [...] He was seeing Tyrone[facility] past in 2014. Mother [...] normal. Romberg negative. Normal tone. IMPRESSION/REPORT/PLAN Exam [facility] ([facility]) Multisystem 29 Day-17 Year Normal 1. [...] MOORE MD On: 12/29/2016 07:18 PM Source: [employer] Document Id: [id number] documented in this encounter Procedure Notes Radha Rivera L.P.N. - 12/04/2016 4:13 PM CST Vision Testing Vision Testing Entered On: 12/04/2016 16:13 FERRYBOAT DECKHAND Performed On: 12/04/2016 16:13 FERRYBOAT DECKHAND by RADHA RIVERA LPN Vision Testing Corrective Lenses : None Eye, Right w/o Correction : 20/20 Eye, Left w/o Correction : 20/20 RADHA RIVERA LPN - 12/04/2016 16:13 FERRYBOAT DECKHAND Source: [employer] Document Id: [id number] FERRYBOAT DECKHAND!5 YBOAT DECKHAND Radha Rivera L.P.N. - 12/04/2016 4:13 PM CST Hearing Point of Care Testing - Audiometer Hearing Point of Care Testing - Audiometer Entered On: 12/04/2016 16:14 FERRYBOAT DECKHAND Performed On: 12/04/2016 16:13 FERRYBOAT DECKHAND by RADHA RIVERA LPN Hearing Point of [...] Response RADHA RIVERA LPN - 12/04/2016 16:13 FERRYBOAT DECKHAND RADHA RIVERA DISABILITY SPECIALIST - 12/04/2016 16:13 CSTDIANAVIRGILIORADHA LPN - 12/04/2016 16:13 FERRYBOAT DECKHAND NICOLERADHA LPN - 12/04/2016 16:13 FERRYBOAT DECKHAND Left Ear 40 db 500 Hz : Response 1000 Hz : Response 2000 Hz : Response 4000 Hz : Response NICOLERADHA ROACH LPN - 12/04/2016 16:13 FERRYBOAT DECKHAND Right Ear Hearing POC Test Grid Right Ear 20 db Right Ear 25 db Right Ear 30 db Right Ear 35 db 500 Hz : Response Response Response Response 1000 Hz : Response Response Response Response 2000 Hz : Response Response Response Response 4000 Hz : Response Response Response Response RADHA RIVERA LPN - 12/04/2016 16:13 FERRYBOAT DECKHAND RADHA RIVERA LPN - 12/04/2016 16:13 CSTRADHA RIVERA LPN - 12/04/2016 16:13 FERRYBOAT DECKHAND RADHA RIVERA LPN - 12/04/2016 16:13 FERRYBOAT DECKHAND Right Ear 40 db 500 Hz : Response 1000 Hz : Response 2000 Hz : Response 4000 Hz : Response NICOLERADHA LPN - 12/04/2016 16:13 FERRYBOAT DECKHAND [facility] Document Id: [id number] FERRYBOAT DECKHAND!54 YBOAT DECKHAND documented in this encounter Miscellaneous Notes Miscellaneous - Radha Rivera L.P.N. - 12/04/2016 4:02 PM CST PHQ-9 - Teens PHQ-9 - Teens Entered On: 12/04/2016 16:03 FERRYBOAT DECKHAND Performed On: 12/04/2016 16:02 FERRYBOAT DECKHAND by RADHA RIVERA LPN PHQ-9 - Teens [...] No RADHA RIVERA LPN - 12/04/2016 16:02 FERRYBOAT DECKHAND Source: [facility] [employer] Document Id: [id number] FERRYBOAT DECKHAND!16 YBOAT DECKHAND Miscellaneous - Radha Rivera L.P.NRussell - 12/04/2016 3:40 PM CST Pediatric Orthotic Assistant Intake/History Pediatric Orthotic Assistant Intake/History Entered On: 12/04/2016 15:41 FERRYBOAT DECKHAND Performed On: 12/04/2016 15:40 FERRYBOAT DECKHAND by RADHA RIVERA LPN Intake Chief Complaint [...] kg/m2 RADHA RIVERA LPN - 12/04/2016 15:40 FERRYBOAT DECKHAND General Info Languages : Albanian, Italian Is Patient Female and 13-50 no hysterectomy : No RADHA RIVERA LPN - 12/04/2016 15:40 FERRYBOAT DECKHAND Subjective Pain Symptoms : No RADHA RIVERA LPN - 12/04/2016 15:40 FERRYBOAT DECKHAND Dependent Habits Exposure to Tobacco Smoke : Care provider denies smoking in home Smoking Status : Never smoker Tobacco 2A : No Tobacco Use/Currently Using : No Tobacco Use/Last 30 Days : No Tobacco Use/Last 12 months : No RADHA RIVERA LPN - 12/04/2016 15:40 FERRYBOAT DECKHAND Source: [facility] MatchCHART Document Id: [id number] FERRYBOAT DECKHAND!30 YBOAT DECKHAND documented in this encounter Plan of Treatment Not on filedocumented as of this encounter Visit Diagnoses Not on filedocumented in this encounter Additional Health Concerns Assessment Noted Time PHQ-9 Depression Total Score: 21 12/04/2016 4:02 PM CS T documented as of this encounter
--- OUTSIDE RECORDS SUMMARY | 2022-08-01 14:20 | XMS_ITS | Encounter Summary ---
:2002 Author Organization [facility] Address [address] [place] [address] Care Team Providers Name Role Phone Elsewhere, Pcp Primary Care Provider Unavailable Reason for Visit Reason Comments Allergic Reaction Encounter Details Date Type Department Care Team Description 01/11/2021 - Emergency [facility] Rash (Primary Dx); 01/12/2021 [address] [facility] [place] [address] [facility] [phone] Social History Tobacco Use Types Packs/Day Years [...] documented as of this encounter Care Teams Petroleum Engineering Professor Relationship Specialty Start Date End Date Elsewhere, Pcp PCP - General 10/23/19 documented as of this encounter
--- OUTSIDE RECORDS SUMMARY | 2022-08-01 14:20 | XMS_ITS | Encounter Summary ---
:2002 Author Organization [facility] Address [address] [place] [address] Care Team Providers Name Role Phone Marilynn [...] documented as of this encounter Care Teams Outpatient Admitting Clerk Relationship Specialty Start Date End Date Marilynn Moore M.D. PCP - General 03/18/17 10/22/19 documented as of this encounter
--- OUTSIDE RECORDS SUMMARY | 2022-08-01 14:20 | XMS_ITS | Clinical Summary ---
:2002 Author Organization [facility] Address [address] [place] [address] Care Team Providers Name Role Phone Elsewhere, Pcp Primary Care Provider Unavailable Source Comments Patient records contain information from all sites at [facility]. For routine questions regarding patient records, call [phone] during business hours, M-F 8:00 AM - 5:00 PM Central Time. Record requests for emergency care only can be directed to [phone] at any time.[facility] Immunizations Name Administration Dates Next Due 4vHPV [...] (143 lb 4.8 oz) 12/04/2016 3:40 PM [employer] POLICE LIEUTENANT Height 170.5 cm (5' 7.13) 12/04/2016 3:40 PM [employer]IE[employer]ENANT Body Mass Index 22.36 12/04/2016 3:40 PM [employer] POLICE LIEUTENANT Body Mass Index Percentile 82.98 % 12/04/2016 3:40 PM CS T Growth Chart: [facility] (Boys, 2-20 Years) Plan of Treatment Health Maintenance Due Date Last Done Comments HIV Screening 2002 Hepatitis C Screening 2002 1 week Well Child Check-Up 2002 1 month Well Child Check-Up 2002 2 month Well Child Check-Up 2002 4 month Well Child Check-Up 01/22/2003 6 month Well Child / 03/24/2003 Alternative Check-Up 9 month Well Child Check-Up 06/24/2003 12 [...] Child Check-Up 09/23/2010 11 year Well Child Check-Up 09/23/2011 12 year Well Child Check-Up 09/23/2012 13 [...] 09/23/2020 21 year Well Child Check-Up 09/23/2021 Well Child Check-Up (WCC) 09/23/2021 Depression Screening (Annual 10/04/2021 PHQ-2) Influenza Vaccine (#1) 2022 07/04/2016, 07/04/2016, 2015, Additional history exists COVID-19 Vaccine (2 - 08/20/2022 07/23/2022 Moderna series) DTaP,Tdap,and Td Vaccines (7 08/22/2024 08/22/2014, 008, [...] Phone Address Typ e / Group Dates EniramBS BLUE [id number] 2019-Prese ATTN: Ashley oconnor HMO BLUE SHIELD PLUS HMO nt [facility] [place] [address] [address] [place] [address] EniramBS BLUE [id number] 2016-Prese [address] [address] Medicaid H[place] [address] Care Teams Linen Controller Relationship Specialty Start Date End Date Elsewhere, Pcp PCP - General 10/23/19
--- OUTSIDE RECORDS SUMMARY | 2022-08-01 14:20 | XMS_ITS | Encounter Summary ---
:2002 Author Organization [facility] Address [address] [place] [address] Care Team Providers Name Role Phone Unavailable Primary Care Provider Unavailable Encounter Details Date Type Department Care Team Description 07/25/2010 Hospital Encounter HX [facility] Mary Matute M.D. [address] [place], [place] [address] (Wo rk) Social History Tobacco Use Types Packs/Day Years Used Date Smoking Tobacco: Never Assessed Sex Assigned at Date Recorded Not on file documented as of this encounter Plan of Treatment Not on filedocumented as of this encounter Visit Diagnoses Not on filedocumented in this encounter
--- OUTSIDE RECORDS SUMMARY | 2022-08-01 14:20 | XMS_ITS | Encounter Summary ---
:2002 Author Organization [facility] Address [address] [place] [address] Care Team Providers Name Role Phone Unavailable Primary Care Provider Unavailable Encounter Details Date Type Department Care Team Description 01/21/2010 Hospital Encounter HX [facility] Mary Matute M.D. [address] [place], [place] [address] (Wo rk) Social History Tobacco [...] Matute M.D. - 01/21/2010 12:00 AM CDT [id number] IMPRESSION/REPORT/PLAN 1. Rash. He has very dry [...] male here today with his mother and valve lapper, Basil. Over the past week, he has [...] or masses. KSL/sks Signed Milady Matute M.D. Director Embalmer Electronically Signed By:MILADY AMTUTE MD On 01/30/2010 08:54 am Modified by:MILADY MATUTE MD On 01/30/2010 08:54 am Source: [facility] MHSDOLBEYNONRADSYS Document Id: [id number] documented in this encounter Miscellaneous Notes Miscellaneous - Poppy Evans - 01/21/2010 4:12 PM CDT Pediatric Biology Lecturer Intake/History Pediatric Biology Lecturer Intake/History Entered On: 01/21/2010 16:14 CDT Performed [...] 16:12 CDT Subjective Pain Symptoms: No POPPY REIS - 01/21/2010 16:12 CDT Dependent Habits Tobacco Use/Currently Using: No Alcohol Use: No POPPY REIS - 01/21/2010 16:12 CDT Allergy Allergies (Active) NKA Estimated Onset Date: Unspecified ; Created By: POPPY REIS; Reaction Status: Active ; Category: Drug ; Substance: NKA ; Type: Allergy ; Updated By: POPPY REIS; Reviewed Date: 01/21/201016:14 CDT Source: [facility] POWERCHART Document Id: [id number] CDT!3 documented in this encounter Plan of Treatment Not on filedocumented as of this encounter Visit Diagnoses Not on filedocumented in this encounter
--- OUTSIDE RECORDS SUMMARY | 2022-08-01 14:20 | XMS_ITS | Encounter Summary ---
:2002 Author Organization [facility] Address [address] [place] [address] Care Team Providers Name Role Phone Unavailable Primary Care Provider Unavailable Encounter Details Date Type Department Care Team Description 11/10/2010 Hospital Encounter HX [facility] Mary Matute M.D. [address] [place], [place] [address] (Wo rk) Social History Tobacco [...] (82 lb 10.8 oz) 11/10/2010 4:21 PM PACKER OPERATOR AUTOMATIC Height 132.5 cm (4' 4.17) 11/10/2010 4:21 PM PACKER OPERATOR AUTOMATIC Body Mass Index 21.36 11/10/2010 4:21 PM PACKER OPERATOR AUTOMATIC Body Mass Index Percentile 97.14 % 11/10/2010 4:21 PM CS T Growth Chart: [facility] (Boys, 2-20 Years) documented in this encounter H&P Notes Milady Matute M.D. - 11/10/2010 12:00 AM CST [id number] CHIEF COMPLAINT/ REASON FOR VISIT 10-year-old well-child visit. HISTORY OF PRESENT ILLNESS Kodi is 10 years old and here with his mother and airline station agent, Yudi, for a checkup. Mother wonders about [...] dye free lotion all over the body. LORRAINE/gracielat Signed Milady Matute M.D. Sap Portal Architect Electronically Signed By: MILADY MATUTE MD On: 11/17/2010 03:08 [facility]: [facility] Document Id: [id number] ER OPERATOR AUTOMATIC documented in this encounter Procedure Notes Poppy Evans - 11/11/2010 10:21 AM CST Hearing Point of Care Testing - Audiometer Hearing Point of Care Testing - Audiometer Entered On: 11/11/2010 10:23 PACKER OPERATOR AUTOMATIC Performed On: 11/11/2010 10:21 PACKER OPERATOR AUTOMATIC by POPPY REIS Hearing Point of Care Testing - Audiometer Left Ear Hearing POC Test Grid Left Ear 20 db Left Ear 25 db Left Ear 30 db Left Ear 40 db 500 Hz: Response Response Response Response 1000 Hz: Response Response Response Response 2000 Hz: Response Response Response Response 4000 Hz: Response Response Response Response POPPY REIS - 11/11/2010 10:21 PACKER OPERATOR AUTOMATIC POPPY REIS - 11/11/2010 10:21 PACKER OPERATOR AUTOMATIC POPPY REIS - 11/11/2010 10:21 PACKER OPERATOR AUTOMATIC POPPY REIS - 11/11/2010 10:21 PACKER OPERATOR AUTOMATIC Right Ear Hearing POC Test Grid Right Ear 20 db Right Ear 25 db Right Ear 30 db Right Ear 40 db 500 Hz: Response Response Response Response 1000 Hz: Response Response Response Response 2000 Hz: Response Response Response Response 4000 Hz: Response Response Response Response POPPY REIS - 11/11/2010 10:21 PACKER OPERATOR AUTOMATIC POPPY ERIS - 11/11/2010 10:21 PACKER OPERATOR AUTOMATIC POPPY REIS - 11/11/2010 10:21 PACKER OPERATOR AUTOMATIC POPPY REIS - 11/11/2010 10:21 PACKER OPERATOR AUTOMATIC Source: [facility] POWERCHART Document Id: [id number] PACKER OPERATOR AUTOMATIC!44 ER OPERATOR AUTOMATIC documented in this encounter Miscellaneous Notes Miscellaneous - Poppy Evans - 11/10/2010 4:21 PM CST Pediatric Residential Property Consultant Intake/History Pediatric Residential Property Consultant Intake/History Entered On: 11/10/2010 16:22 PACKER OPERATOR AUTOMATIC Performed On: 11/10/2010 16:21 PACKER OPERATOR AUTOMATIC by POPPY REIS Intake Chief Complaint: well [...] Index: 21kg/m2 POPPY REIS - 11/10/2010 16:21 PACKER OPERATOR AUTOMATIC Subjective Pain Symptoms: No POPPY REIS - 11/10/2010 16:21 PACKER OPERATOR AUTOMATIC Dependent Habits Tobacco Use/Currently Using: No POPPY REIS - 11/10/2010 16:21 PACKER OPERATOR AUTOMATIC Allergy Allergies (Active) NKA Estimated Onset Date: Unspecified ; Created By: POPPY REIS; Reaction Status: Active ; Category: Drug ; Substance: NKA ; Type: Allergy ; Updated By: POPPY REIS; Reviewed Date: 11/10/201016:21 PACKER OPERATOR AUTOMATIC Source: [facility] POWERCHART Document Id: [id number] PACKER OPERATOR AUTOMATIC!19 ER OPERATOR AUTOMATIC documented in this encounter Plan of Treatment Not on filedocumented as of this encounter Visit Diagnoses Not on filedocumented in this encounter
== END 2022-08-01 14:54 | disposition left against medical advice (07) ==
PROVIDERS: PCP Family Medicine
DX: Z53.21 Procedure and treatment not carried out due to patient leaving prior to being seen by health care provider (principal)
CPT/HCPCS: 99281

== ENCOUNTER 2022-09-08 07:17 | Outpatient (CLI) | payer BC, SELFPAY ==
--- OUTSIDE RECORDS SUMMARY | 2022-09-08 08:29 | XMS_ITS | Clinical Summary ---
:2000 Author Organization [employer] [facility] [place] [address] Care Team Providers Name Role Phone Ele [...] Date Status Date levothyroxine Take 50 mcg 0 Acti ve (SYNTHROID) 50 mcg by mouth 2 tablet once daily. melatonin 5 mg tab Take 1 30 Tablet 2 A ctive tabletIndications: Tablet (5 2 Schizophrenia, mg) by mouth undifferentiated (HC) at bedtime if needed, may repeat once for Sleep. LORazepam (ATIVAN) Take 1 10 Tablet 0 A ctive 0.5 mg Tablet (0.5 2 tabIndications: mg) by mouth Chronic anxiety every 6 hours if needed for Anxiety. hydrOXYzine pamoate Take 1 30 Capsule 2 Active (VistariL) 50 mg Capsule (50 2 capsuleIndications: mg) by mouth Anxiety 3 times daily if needed for Anxiety. 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 recurrent major depressive disorder, with psychotic features (HC), Anxiety disorder, unspecified type hydrOXYzine pamoate Take 1 30 Capsule 2 09/04/20 Discontinued (VistariL) 50 mg Capsule (50 2 22 ( Reorder capsuleIndications: mg) by mouth (E-cancel not Anxiety 3 times sent)) daily if needed for Anxiety. sertraline (ZOLOFT) Take 1 30 Tablet 1 09/04/20 Discontinued 50 mg Tablet (50 2 22 (Reorder tabletIndications: mg) by mouth (E-cancel not Anxiety disorder, once daily. sent)) unspecified type, Severe episode of recurrent major depressive disorder, with psychotic features (HC) lamoTRIgine Take 1 60 Tablet 1 09/04/20 Disconti nued (LaMICtal) 25 mg tablet daily 2 22 (Reorder tabletIndications: for 2 weeks, (E-cancel not Severe episode of then 1 se nt)) recurrent major tablet twice depressive disorder, a day with psychotic features (HC) Active Problems Problem Noted Date Schizophrenia, [...] Care Team Description 09/04/2022 Telemedicine Ugo Thomason Medication REHAN Pereira (Virtual Visi t ) 08/01/2022 Emergency Austin Dubon MD Respi ratory illness (Primary Dx); Chronic anxiety 08/01/2022 Travel 07/31/2022 Telemedicine Ugo Thomason Ma, MBBS (Virtual Visi t ) 07/21/2022 Telephone Ugo Thomason MBBS 07/21/2022 Refill Ugo Thomason Refill Reques t (Invega REHAN Fuentes Sustenna) 07/16/2022 Telephone Ugo Thomason Medication REHAN Pereira 07/03/2022 Telephone Ugo Thomason MBBS 06/29/2022 Refill Ugo Thomason Refill Reques t (Benztropine) REHAN Fuentes 06/26/2022 Refill Ugo Thomason Refill Reques t (Invega REHAN Fuentes Sustenna) 06/24/2022 Refill Ugo Thomason Refill Reques t REHAN Fuentes 06/23/2022 Telemedicine Ugo Thomason Medication REHAN Pereira (Virtual Visi t ) 06/22/2022 Telephone Ugo Thomason Follow Up REHAN Fuentes from Last 3 Months Immunizations Name Administration Dates Next Due DTaP 01/10/2008, 03/10/2004 [id number] (Pediarix) 05/25/2003, 03/19/2003, 2002 HIB PRP-OMP (PedvaxHIB) [...] Sign Reading Time Taken Comments Blood Pressure 129/68 08/01/2022 8:06 PM CDT Pulse 122 08/01/2022 8:06 PM CDT Temperature 36.9 ??C (98.5 ??F) 08/01/2022 8:06 PM CDT Respiratory Rate 18 08/01/2022 8:06 PM CDT Oxygen Saturation 98% 08/01/2022 8:06 PM CDT Inhaled Oxygen Concentration - - Weight 112 kg (247 lb) 08/01/2022 8:06 PM CDT Height 172.7 cm (5' 8) 08/01/2022 8:06 PM CDT Body Mass Index 37.56 08/01/2022 8:06 PM CDT Plan of Treatment Upcoming Encounters Date Type Specialty Care Team Description 10/09/2022 Telemedicine Ugo Thomason MBBS [address] [place] [address] 5607 (Wo rk) Health Maintenance Due Date Last Done Comments Well Child Check for age 0111/01/2007 11/01/2006 3-20 BMI (ht and wt on same day) 2020 for age 18+ Hepatitis C screening for 2020 age 18-79 Influenza for age 9-49 06/04/2022 07/04/2016, 2015, 08/22/2014, Additional history exists COVID-19 vaccine series (3 - 10/15/2022 08/20/2022, 022 Booster for Moderna series) Depression screening for age 1209/04/2023 09/04/2022, 022, 12+ 03/09/2022, Additional history exists Tetanus booster 08/22/2024 08/22/2014 Meningococcal series for age Aged Out 08/22/2014 No longer eligible - based on patient 's age to complete this topic Tdap Completed 08/22/2014 HPV series for age 9-26 Completed 2015, 2015, 08/22/2014 HIV for age 15-65 Completed 02/20/2022 Procedures Procedure Name Priority Date/Time Associated Comments Diagnosis XR CHEST 2 VIEWS PA STAT 08/01/2022 9:14 PM Re sults for this AND LATERAL CDT procedure are i n the results section. CBC WITH AUTO STAT 08/01/2022 8:37 PM Results for this DIFFERENTIAL CDT procedure are i n the results section. BASIC METABOLIC PANEL STAT 08/01/2022 8:37 PM Results for this CDT procedure are i n the results section. C-REACTIVE PROTEIN STAT 08/01/2022 8:37 PM Res ults for this CDT procedure are i n the results section. PROCALCITONIN STAT 08/01/2022 8:37 PM Results for this CDT procedure are i n the results section. CBC WITH AUTO STAT 08/01/2022 8:37 PM Results for this DIFFERENTIAL CDT procedure are i n the results section. COVID 19 STAT 08/01/2022 8:18 PM Results f or this CDT procedure are i n the results section. COVID 19 COLLECTION STAT 08/01/2022 8:18 PM Re sults for this CDT procedure are i n the results section. INFLUENZA A/B PCR STAT 08/01/2022 8:18 PM Resu lts for this CDT procedure are i n the results section. from Last 3 Months Results XR CHEST 2 VIEWS PA AND LATERAL (08/01/2022 9:14 PM CDT) Anatomical Region Laterality Modality CHEST, THORAX, Lung, HEART Digital Radio graphy Specimen (Source) Anatomical Location Collection Method / Collectio n Time Received Time / Laterality Volume Narrative This result has an attachment that is no t available. Austin Dubon MD GENERAL IMAGING (ABNORMAL) CBC WITH AUTO DIFFERENTIAL (08/01/2022 8:37 PM CDT) [facility] Method Time Signature WHITE BLOOD 7.4 4.5 - 11.0 08/01/2022 [place] COUNT thou/cu mm 8:43 PM CDT HOSPITAL RED BLOOD COUNT 4.47 4.30 - 08/01/2022 [place] 5.90 8:43 PM CDT HOSPITAL mil/cu mm HEMOGLOBIN 13.3 (L) 13.5 - 08/01/2022 [place] 17.5 g/dL 8:43 PM CDT HOSPITAL HEMATOCRIT 37.9 37.0 - 08/01/2022 [place] 53.0 % 8:43 PM CDT HOSPITAL MCV 85 80 - 100 08/01/2022 [place] fL 8:43 PM CDT HOSPITAL MCH 29.8 26.0 - 08/01/2022 [place] 34.0 pg 8:43 PM CDT HOSPITAL MCHC 35.1 32.0 - 08/01/2022 [place] 36.0 g/dL 8:43 PM CDT HOSPITAL RDW 12.2 11.5 - 08/01/2022 [place] 15.5 % 8:43 PM CDT HOSPITAL PLATELET COUNT 217 140 - 440 08/01/2022 [place] thou/cu mm 8:43 PM CDT HOSPITAL MPV 10.1 6.5 - 11.0 08/01/2022 [place] fL 8:43 PM CDT HOSPITAL % NEUT 54.8 % 08/01/2022 [place] 8:43 PM CDT HOSPITAL % LYMPH 23.5 % 08/01/2022 [place] 8:43 PM CDT HOSPITAL % MONO 14.6 % 08/01/2022 [place] 8:43 PM CDT HOSPITAL % EOS 6.7 % 08/01/2022 [place] 8:43 PM CDT HOSPITAL % BASO 0.4 % 08/01/2022 [place] 8:43 PM CDT HOSPITAL ABSOLUTE 4.0 1.7 - 7.0 08/01/2022 [place] NEUTROPHILS thou/cu mm 8:43 PM CDT HOSPITAL ABSOLUTE 1.7 0.9 - 2.9 08/01/2022 [place] LYMPHOCYTES thou/cu mm 8:43 PM CDT HOSPITAL ABSOLUTE 1.1 (H) <0.9 08/01/2022 [place] MONOCYTES thou/cu mm 8:43 PM CDT HOSPITAL ABSOLUTE 0.5 (H) <0.5 08/01/2022 [place] EOSINOPHILS thou/cu mm 8:43 PM CDT HOSPITAL ABSOLUTE 0.0 <0.3 08/01/2022 [place] BASOPHILS thou/cu mm 8:43 PM CDT HOSPITAL Specimen Anatomical Collection Method / Collection Time Recei veronica Time (Source) Location / Volume Laterality Blood BLOOD SPECIMEN / Venipuncture / 08/01/2022 8:37 2021 8:37 Unknown Unknown PM CDT PM CDT Austin Dubon MD HEMATOLOGY Performing Organization Address City/State/ZIP Code Phon e Number [facility] [address] [address] PROCALCITONIN (08/01/2022 8:37 PM CDT) P athologist Signature PROCALCITONIN 0.12 <0.50 ng/ml 08/01/2022 [place] 9:28 PM CDT HOSPITAL Specimen Anatomical Collection Method / Collection Time Recei veronica Time (Source) Location / Volume Laterality Blood BLOOD SPECIMEN / Venipuncture / 08/01/2022 8:37 2021 8:37 Unknown Unknown PM CDT PM CDT Narrative [facility] - 08/01/2022 9:28 PM C DT Procalcitonin for initial assessment of Lower Respiratory Tract Infection: Results Interpretation <0.1 ng/mL ?Antibiotics strong ly discouraged.* 0.1 - 0.25 ng/mL ??Antibiotics discourag ed. * 0.26 - 0.50 ng/mL Antibiotics encouraged . >0.50 ng/mL ? Antibiotics strongl y encouraged. *If suspicion of infection high, clinica lly unstable, or immunosuppressed: initiate antibiotics. Repeat PCT testing in 6-24 hours. Repeat PCT testing every 1-2 days whil e on antibiotics to assess response to therapy. Procalcitonin for initial assessment of severe sepsis risk: Results Interpretation < 0.5 ng/mL Associated with a low risk f or progression to severe sepsis/septic shock. > 2.0 ng/mL Associated with a high risk for progression to severe sepsis/septic shock. Note: PCT levels below 0.5 ng/mL do not exclude an infection, because localized infections may also be associated with such low levels. If the PCT measurement is done very early after the systemic infec tion process has started (usually <6 warren rs), these values may still be low. PCT levels between 0.5 ng/mL and 2.0 ng/ mL should be interpreted in the context of the specific clinical background and conditions of the individual patient. It is recommended to re-test PCT within 6-24 hours if any concentrations <2.0 ng/mL are obtained. Austin Dubon MD SEND OUTS Performing Organization Address [facility] [address] [address] (ABNORMAL) C-REACTIVE PROTEIN (08/01/2022 8:37 PM CDT) athologist Signature C-REACTIVE 2.00 (H) <0.50 08/01/2022 [place] PROTEIN mg/dL 8:58 PM CDT HOSPITAL Specimen Anatomical Collection Method / Collection Time Recei veronica Time (Source) Location / Volume Laterality Blood BLOOD SPECIMEN / Venipuncture / 08/01/2022 8:37 2021 8:37 Unknown Unknown PM CDT PM CDT Austin Dubon MD CHEMISTRY Performing Organization Address [facility] [address] [address] (ABNORMAL) BASIC METABOLIC PANEL (08/01/2022 8:37 PM CDT) athologist Signature SODIUM 139 135 - 145 08/01/2022 [place] mmol/L 8:59 PM CDT HOSPITAL POTASSIUM 3.5 3.5 - 5.0 08/01/2022 [place] mmol/L 8:59 PM CDT HOSPITAL CHLORIDE 105 98 - 110 08/01/2022 [place] mmol/L 8:59 PM CDT HOSPITAL CO2,TOTAL 26 21 - 31 08/01/2022 [place] mmol/L 8:59 PM CDT HOSPITAL ANION GAP 8 5 - 18 08/01/2022 [place] 8:59 PM CDT HOSPITAL GLUCOSE 111 (H) 65 - 100 08/01/2022 [place] mg/dL 8:59 PM CDT HOSPITAL CALCIUM 9.4 8.5 - 10.5 08/01/2022 [place] mg/dL 8:59 PM CDT HOSPITAL BUN 11 8 - 25 08/01/2022 [place] mg/dL 8:59 PM CDT HOSPITAL CREATININE 0.97 0.72 - 08/01/2022 [place] 1.25 mg/dL 8:59 PM CDT HOSPITAL BUN/CREAT RATIO 11 10 - 20 08/01/2022 [place] 8:59 PM CDT HOSPITAL eGFR >90 >90 08/01/2022 [place] mL/min/1.7 8:59 PM CDT HOSPITAL 3m2 Comment: As of 2021, eGFR is calcu lated by the CKD-EPI creatinine equation without race adjustment. eGFR can be inf luenced by muscle mass, exercise, and diet. The reported eGFR is an estimation only and is only applicable if the renal function is stable. Specimen Anatomical Collection Method / Collection Time Recei veronica Time (Source) Location / Volume Laterality Blood BLOOD SPECIMEN / Venipuncture / 08/01/2022 8:37 2021 8:37 Unknown Unknown PM CDT PM CDT Austin Dubon MD CHEMISTRY Performing Organization Address City/State/ZIP Code Phon e Number [facility] [address] [address] COVID 19 (08/01/2022 8:18 PM CDT) [facility] gist Method Time Signature COVID 19 Not detected Not detected 08/01/2022 [place] 10:43 PM CDT HOSPITAL MOLECULAR Specimen Anatomical Location / Collection Method Collection Alan e Received Time (Source) Laterality / Volume Other SPECIMEN FROM Non-Blood / 08/01/2022 8:18 08/01/2022 NASOPHARYNGEAL Unknown PM CDT 10:23 PM CDT STRUCTURE / Unknown Narrative [facility] - 08/01/2022 10:43 PM CDT This test has been authorized by FDA und er an Emergency Use Authorization (EUA). This test is only authorized for the duration of time the declaration that circumstances exist justifying the authorization of e emergency use of in vitro diagnostic tests for detection of SARS-CoV-2 virus and/or diagnosis of COVID-19 infection under section 564(b)(1) of the Act, 21 U.S.C. 360bbb-3(b) (1), unless the authorization is terminated or revoked sooner. Austin Dubon MD MICROBIOLOGY Performing Organization Address [facility] [address]/[facility] [address] [place] [phone] COVID 19 COLLECTION (08/01/2022 8:18 PM CDT) [facility] Method Time Signature TESTING [facility] 08/01/2022 [place] Laboratory 10:23 PM CDT HOSPITAL Comment: Specimen submitted to [facility] for testing. Specimen Anatomical Location / Collection Method Collection Alan e Received Time (Source) Laterality / Volume Other SPECIMEN FROM Non-Blood / 08/01/2022 8:18 08/01/2022 8:37 NASOPHARYNGEAL Unknown PM CDT PM CDT STRUCTURE / Unknown Austin Dubon MD SEND OUTS Performing Organization Address [facility] [address]/[facility] [address] [address] INFLUENZA A/B PCR (08/01/2022 8:18 PM CDT) [facility] Method Time Signature INFLUENZA A NOT Detected 08/01/2022 [place] PCR 10:43 PM CDT HOSPITAL INFLUENZA B NOT Detected 08/01/2022 [place] PCR 10:43 PM CDT HOSPITAL Specimen Anatomical Location / Collection Method Collection Alan e Received Time (Source) Laterality / Volume Other SPECIMEN FROM Non-Blood / 08/01/2022 8:18 08/01/2022 NASOPHARYNGEAL Unknown PM CDT 10:23 PM CDT STRUCTURE / Unknown Austin Dubon MD MICROBIOLOGY Performing Organization Address [facility] [address]/[facility] [address] [place] [address] from Last 3 Months Insurance Payer Benefit Plan / Subscriber ID Effective Dates Phone Addre ss Type Group UCARE MARILEE UCARE MARILEE [id number] 2014-Present [address] [place] [address] [place] [employer] [id number] 2018-Present [address] [address] [place] [address] [place] [id number] 2014-Present [address] [address] [place] [address] [address]) [address] [id number] MARIE CORONADO Personal/Family Mother [phone] [address] (Home) [address] [id number] Advance Directives Latest Code Status on File Code Status Date Activated Date Inactivated Comments Full Code 01/20/2022 8:36 PM 03/04/2022 11:21 AM Code Status Discussion: Other Care Teams Transmission Superintendent Relationship Specialty Start Date End Date Zachery Mathews MD PCP - General Family Practice 12/28/[address] [place] [address] [address] [place] [address] Ele Matute MD 05/03/14 Berta Suarez, PSYCH ARNP Psychiatry Nurse Practitioner 01/18/17
--- OUTSIDE RECORDS SUMMARY | 2022-09-08 08:29 | XMS_ITS | Encounter Summary ---
:2002 Author Organization [facility] Address [address] [place] [address] Care Team Providers Name Role Phone Unavailable Primary Care Provider Unavailable Encounter Details Date Type Department Care Team Description 01/21/2010 Hospital Encounter HX [facility] FB PEDIATRIC Mary Matute M.D. [address] [place], [place] [address] (Wo rk) Social History Tobacco [...] Matute M.D. - 01/21/2010 12:00 AM CDT [id number] IMPRESSION/REPORT/PLAN 1. Rash. 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 Over the past week, he has [...] or masses. KSL/sks Signed Milady Matute M.D. Corporate Administrator Electronically Signed By:MILADY MATUTE MD On 01/30/2010 08:54 am Modified by:MILADY MATUTE MD On 01/30/2010 08:54 am Source: [facility] Document Id: [id number] documented in this encounter Miscellaneous Notes Miscellaneous - Poppy Evans - 01/21/2010 4:12 PM CDT Pediatric Manager Case Intake/History Pediatric Manager Case Intake/History Entered On: 01/21/2010 16:14 CDT Performed [...] POPPY REIS; Reviewed Date: 01/21/201016:14 CDT Source: [facility] POWERCHART Document Id: [id number] CDT!3 documented in this encounter Plan of Treatment Not on filedocumented as of this encounter Visit Diagnoses Not on filedocumented in this encounter
--- OUTSIDE RECORDS SUMMARY | 2022-09-08 08:29 | XMS_ITS | Encounter Summary ---
:2002 Author Organization [facility] Address [address] [place] [address] Care Team Providers Name Role Phone Elsewhere, Pcp Primary Care Provider Unavailable Reason for Visit Reason Comments Respiratory Distress Encounter Details Date Type Department Care Team Description 08/01/2022 - Emergency [facility] Illness (Primary Dx) 08/03/[address] [place] [address] Social History Tobacco Use Types Packs/Day Years Used Date Smoking Tobacco: Never Sex Assigned at Date Recorded Not on file documented as of this encounter Plan of Treatment Not on filedocumented as of this encounter Procedures Procedure Name Priority Date/Time Associated Comments Diagnosis DX CHEST AP OR PA RAD - Semiurgent 08/01/2022 9:14 Res ults for this AND LATERAL 2 (Fast; most ED PM CDT procedure ar e in VIEWS patients; some the results inpatients) section. documented in this encounter Results DX Chest AP or PA and Lateral 2 Views (08/01/2022 9:14 PM CDT) Anatomical Region Laterality Modality Chest, Thoracic RST LOS, Thoracic ARZ LOS, Thoracic N/A Digital Radiography FLA LOS Specimen (Source) Anatomical Collection Method Collection Time Re ceived Time Location / / Volume Laterality 08/01/2022 10:04 PM CDT Impressions 08/01/2022 10:05 PM CDT Bronchial wall thickening, as can be seen with bronchitis or asthma. No focal pulmonary consolidation. No pleural effusion. No p neumothorax. Normal cardiomediastinal silhouette. Narrative 08/01/2022 10:05 PM CDT EXAM: DX CHEST AP OR PA AND LATERAL 2 VIEWS Procedure Note Herber Mccartney M.D. - 08/01/2022Format ting of this note might be different from the original. EXAM: DX CHEST AP OR PA AND LATERAL 2 EWS IMPRESSION: Bronchial wall thickening, as can be see n with bronchitis or asthma. No focal pulmonary consolidation. No pleural effusion. No p neumothorax. Normal cardiomediastinal silhouette. Austin GONZALEZ DIAGNOSTIC IMAGING ALETA IVAN documented in this encounter Visit Diagnoses Diagnosis Illness - Primary documented in this encounter Additional Health Concerns Assessment Noted Time PHQ-9 Depression Total Score: 21 12/04/2016 4:02 PM CS T documented as of this encounter Care Teams Drawing Hand Relationship Specialty Start Date End Date Elsewhere, Pcp PCP - General 10/23/19 documented as of this encounter
--- OUTSIDE RECORDS SUMMARY | 2022-09-08 08:29 | XMS_ITS | Clinical Summary ---
:2002 Author Organization [facility] Address [address] [place] [address] Care Team Providers Name Role Phone Elsewhere, Pcp Primary Care Provider Unavailable Source Comments Patient records contain information from all sites at [facility]. For routine questions regarding patient records, call [phone] during business hours, M-F 8:00 AM - 5:00 PM Central Time. 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 Body Mass Index 22.36 12/04/2016 3:40 PM BUCKLE ASSEMBLER Body Mass Index Percentile 82.98 % 12/04/2016 3:40 PM CS T Growth Chart: [facility] (Boys, 2-20 Years) Plan of Treatment [...] 07/04/2016, 2015, Additional history exists COVID-19 Vaccine (3 - 10/15/2022 08/20/2022, 07/23/2022 Booster for Moderna series) DTaP,Tdap,and Td Vaccines (7 08/22/2024 08/22/2014, 008, - Td or Tdap) 01/10/2008, Additional history exists Hepatitis B Vaccines Completed [...] this topic HPV Vaccines Completed 2015, 2015, 08/22/2014, Additional history exists Procedures Procedure Name Priority Date/Time Associated Comments Diagnosis DX CHEST AP OR PA RAD - Semiurgent 08/01/2022 9:14 Res ults for this AND LATERAL 2 (Fast; most ED PM CDT procedure ar e in VIEWS patients; some the results inpatients) section. from Last 3 Months Results DX Chest AP or PA and [...] No p neumothorax. Normal cardiomediastinal silhouette. Austin Dubon M.D. IMBaylee DIAGNOSTIC IMAGING PROCE DURES from Last 3 Months Insurance Payer Benefit Plan Subscriber ID Effective Phone Address Typ e / Group Dates Looxcie [id number] 2019-Prese ATTN: Ashley oconnor [facility] [employer] PLUS O nt [facility] [address] [address] [place] [address] Looxcie [id number] 2016-Prese [address] [address] Medicaid [facility] [employer] [address] Care Teams Sign Language Instructor Relationship Specialty Start Date End Date Elsewhere, Pcp PCP - General 10/23/19
--- OUTSIDE RECORDS SUMMARY | 2022-09-08 08:29 | XMS_ITS | Encounter Summary ---
:2002 Author Organization [facility] Address [address] [place] [address] Care Team Providers Name Role Phone Unavailable Primary Care Provider Unavailable Encounter Details Date Type Department Care Team Description 12/16/2010 Hospital Encounter HX [facility] Miensh Matute M.D. [address] [place], [place] [address] (Wo rk) Social History Tobacco Use Types Packs/Day Years Used Date Smoking Tobacco: Never Assessed Sex Assigned at Date Recorded Not on file documented as of this encounter Plan of Treatment Not on filedocumented as of this encounter Visit Diagnoses Not on filedocumented in this encounter
--- OUTSIDE RECORDS SUMMARY | 2022-09-08 08:29 | XMS_ITS | Encounter Summary ---
:2002 Author Organization [facility] Address [address] [place] [address] Care Team Providers Name Role Phone Unavailable Primary Care Provider Unavailable Encounter Details Date Type Department Care Team Description 01/19/2008 [facility] [address] [place] [address] (Wo rk) Social History Tobacco Use Types Packs/Day Years Used Date Smoking Tobacco: Never Assessed Sex Assigned at Date Recorded Not on file documented as of this encounter Plan of Treatment Not on filedocumented as of this encounter Visit Diagnoses Not on filedocumented in this encounter
--- OUTSIDE RECORDS SUMMARY | 2022-09-08 08:29 | XMS_ITS | Encounter Summary ---
:2002 Author Organization [facility] Address [address] [place] [address] Care Team Providers Name Role Phone Unavailable Primary Care Provider Unavailable Encounter Details Date Type Department Care Team Description 2015 Hospital Encounter HX [facility] Sa edel Moore M.D. [phone] (Wo rk) Social History Tobacco Use Types [...] (127 lb 13.9 oz) 2015 8:30 AM BROKER ASSOCIATE Height 163.5 cm (5' 4.37) 2015 8:30 AM BROKER ASSOCIATE Body Mass Index 21.7 2015 8:30 AM BROKER ASSOCIATE Body Mass Index Percentile 84.36 % 2015 8:30 AM CS T Growth Chart: [facility] (Boys, [...] a pediatric symptom checklist, with regard to Tahmina's mental health and behavior. VITAL SIGNS T: [...] all four extremities. Babinski response negative bilaterally. Jkfzrt-bv-zdlh testing normal. Romberg negative. Normal tone. Genitalia: Rakesh IV male. Testicles descended. No hernias or hydroceles. IMPRESSION/REPORT/PLAN Exam Well Client Service Administrator ([facility]) Multisystem 29 Day-17 Year 1. Well [...] MOORE MD On: 10/29/2015 07:29 PM [facility] Document Id: [id number] ER ASSOCIATE documented in this encounter Procedure Notes Radha Rivera L.P.NRussell - 2015 9:05 AM CST Vision Testing Vision Testing Entered On: 2015 9:05 BROKER ASSOCIATE Performed On: 2015 9:05 BROKER ASSOCIATE by RADHA RIVERA LPN Vision Testing Corrective Lenses : None Eye, Right w/o Correction : 20/20 Eye, Left w/o Correction : 20/20 RADHA RIVERA LPN - 2015 9:05 BROKER ASSOCIATE [facility] Document Id: [id number] BROKER ASSOCIATE!5 ER ASSOCIATE Radha Rivera L.P.N. - 2015 9:04 AM CST Hearing Point of Care Testing - Audiometer Hearing Point of Care Testing - Audiometer Entered On: 2015 9:05 BROKER ASSOCIATE Performed On: 2015 9:04 BROKER ASSOCIATE by RADHA RIVERA LPN Hearing Point of [...] Response RADHA RIVERA LPN - 2015 9:04 BROKER ASSOCIATE RADHA RIVERA LPN - 2015 9:04 BROKER ASSOCIATE RADHA RIVERA LPN - 2015 9:04 BROKER ASSOCIATE RADHA RIVERA LPN - 2015 9:04 BROKER ASSOCIATE Left Ear 40 db 500 Hz : Response 1000 Hz : Response 2000 Hz : Response 4000 Hz : Response RADHA RIVERA LPN - 2015 9:04 BROKER ASSOCIATE Right Ear Hearing POC Test Grid Right Ear 20 db Right Ear 25 db Right Ear 30 db Right Ear 35 db 500 Hz : Response Response Response Response 1000 Hz : Response Response Response Response 2000 Hz : Response Response Response Response 4000 Hz : Response Response Response Response RADHA RIVERA LPN - 2015 9:04 BROKER ASSOCIATE RADHA RIVERA LPN - 2015 9:04 BROKER ASSOCIATE RADHA RIVERA LPN - 2015 9:04 BROKER ASSOCIATE RADHA RIVERA LPN - 2015 9:04 BROKER ASSOCIATE Right Ear 40 db 500 Hz : Response 1000 Hz : Response 2000 Hz : Response 4000 Hz : Response RADHA RIVERA LPN - 2015 9:04 BROKER ASSOCIATE Source: [employer] Document Id: [id number] BROKER ASSOCIATE!54 ER ASSOCIATE documented in this encounter Miscellaneous Notes Miscellaneous - Marilynn Moore M.D. - 2015 7:21 PM CST PHQ-9 - Teens PHQ-9 - Teens Entered On: 10/29/2015 19:21 BROKER ASSOCIATE Performed On: 2015 19:21 BROKER ASSOCIATE by MARILYNN MOORE MD PHQ-9 - Teens [...] No MARILYNN MOORE MD - 10/29/2015 19:21 BROKER ASSOCIATE Source: [employer] Document Id: [id number] BROKER ASSOCIATE!16 ER ASSOCIATE Miscellaneous - Marilynn Moore M.D. - 2015 9:40 AM CST Ambulatory Patient Summary [address] [id number] Visit Information Name: TAHMINA CORONADO [facility] Number: [id number] Current Date: 2015 09:40:33 Physicians [...] may affect the ovaries or testes Rubella (Arabic measles), a form ofmeasles that, if caught [...] Program recommendations for adults (October 2012). ?? [id number] Samantha Fischer, [address] [place] [address], [place] [address]. All rights reserved. This information is not [...] eaten every day. Save less healthy foods--like vatican citizen fries, candy, and chips--for a special occasion.When [...] damage, so monitor the volume on your [employer]Spring music player. Many players let you set [...] advice. Vaccinations Based on recommendations from the [place] [employer] Pediatric[employer], at this visit your [...] private. Posts made on websites like Facebook, [email or web address], and [employer] can be seen by people they werent intended for. Posts can easily be misunderstood and can even cause trouble for you or your child. Supervise your sydnee use of social networks, chat rooms, and email. Next checkup at: PARENT NOTES: ?? [facility], [address] [place] [address], [place] [address]. All rights reserved. This information is not [...] if you dont have one. Go to [email or web address] and click on Create Your Account. Then, follow the directions to complete the online form. Youll be asked for your [facility] number which you can find at the top of this document. Your Goals/Additional instructions: This document has images extracted. Please consider using [employer] for all your patient education needs. Source: [facility] POWERCHART Document Id: [id number] EL Arriola - Marilynn Moore M.D. - 2015 9:40 AM CST Ambulatory Discharge Medication List [address] [id number] Visit Information Name: TAHMINA CORONADO [facility] Number: [id number] Visit Date: 2015 09:40:32 Attending [...] MD Signed On:24-OCT-2015 09:40:04 Additional Information: Source: [facility] POWERCHART Document Id: [id number] ER ASSOCIATE Flako - Radha Rivera S, L.P.N. - 2015 8:30 AM CST Pediatric On Site Manager Intake/History Pediatric On Site Manager Intake/History Entered On: 2015 8:33 BROKER ASSOCIATE Performed On: 2015 8:30 BROKER ASSOCIATE by RADHA RIVERA LPN Intake Chief Complaint [...] kg/m2 RADHA RIVERA LPN - 2015 8:30 BROKER ASSOCIATE General Info Languages : Syriac, Upper Sorbian Is Patient Female and 13-50 no hysterectomy : RADHA Chu LPN - 2015 8:30 BROKER ASSOCIATE Subjective Pain Symptoms : RADHA Chu LPN - 2015 8:30 BROKER ASSOCIATE Dependent Habits Exposure to Tobacco Smoke : Care provider denies smoking in home Smoking Status : Never smoker Tobacco 2A : No Tobacco Use/Currently Using : No Tobacco Use/Last 30 Days : No Tobacco Use/Last 12 months : RADHA Chu LPN - 2015 8:30 BROKER ASSOCIATE [facility] POWER[facility] Document Id: [id number] BROKER ASSOCIATE!30 ER ASSOCIATE documented in this encounter Plan of Treatment Not on filedocumented as of this encounter Visit Diagnoses Not on filedocumented in this encounter Additional Health Concerns Assessment Noted Time PHQ-9 Depression Total Score: 8 2015 7:21 PM BROKER ASSOCIATE documented as of this encounter
--- OUTSIDE RECORDS SUMMARY | 2022-09-08 08:29 | XMS_ITS | Encounter Summary ---
:2002 Author Organization [facility] Address [address] [place] [address] Care Team Providers Name Role Phone Unavailable Primary Care Provider Unavailable Encounter Details Date Type Department Care Team Description 07/25/2010 Hospital Encounter HX [facility] Mary Matute M.D. [address] [place], [place] [address] (Wo rk) Social History Tobacco Use Types Packs/Day Years Used Date Smoking Tobacco: Never Assessed Sex Assigned at Date Recorded Not on file documented as of this encounter Plan of Treatment Not on filedocumented as of this encounter Visit Diagnoses Not on filedocumented in this encounter
--- OUTSIDE RECORDS SUMMARY | 2022-09-08 08:29 | XMS_ITS | Encounter Summary ---
:2002 Author Organization [facility] Address [address] [place] [address] Care Team Providers Name Role Phone Unavailable Primary Care Provider Unavailable Encounter Details Date Type Department Care Team Description 08/22/2014 Hospital Encounter HX [facility] Mary Matute M.D. [address] [place], [place] [address] (Wo rk) Social History Tobacco [...] (117 lb 15.1 oz) 08/22/2014 3:10 PM ASSEMBLY DETAILER Height 151 cm (4' 11.45) 08/22/2014 3:10 PM ASSEMBLY DETAILER Body Mass Index 23.46 08/22/2014 3:10 PM ASSEMBLY DETAILER Body Mass Index Percentile 94.04 % 08/22/2014 3:10 PM CS T Growth Chart: CDC (Boys, 2-20 Years) documented in this encounter H&P Notes Milady Matute M.D. - 08/22/2014 2:58 PM CST [id number] CHIEF COMPLAINT/REASON FOR VISIT A 13-year-old well-child [...] home. He is in 6th grade at [employer] and does okay in school. FAMILY [...] MATUTE MD On: 08/23/2014 11:59 AM Source: [facility] MHSDOLBEYNONRADSYS Document Id: [id number] MBLY DETAILER documented in this encounter Procedure Notes Lisa Baeza L.PDeirdre - 08/22/2014 4:22 PM CST Vision Testing Vision Testing Entered On: 08/22/2014 16:22 ASSEMBLY DETAILER Performed On: 08/22/2014 16:22 ASSEMBLY DETAILER by LISA BAEZA LPN Vision Testing Corrective Lenses : None Eye, Right w/o Correction : 20/20 Eye, Left w/o Correction : 20/30 LISA BAEZA LPN - 08/22/2014 16:22 ASSEMBLY DETAILER Source: [facility] POWERCHART Document Id: [id number] ASSEMBLY DETAILER!5 MBLY DETAILER Lisa Baeza L.P.N. - 08/22/2014 4:21 PM CST Hearing Point of Care Testing - Audiometer Hearing Point of Care Testing - Audiometer Entered On: 08/22/2014 16:22 ASSEMBLY DETAILER Performed On: 08/22/2014 16:21 ASSEMBLY DETAILER by LISA BAEZA LPN Hearing Point of [...] Response LISA BAEZA LPN - 08/22/2014 16:21 ASSEMBLY DETAILER LISA BAEZA LPN - 08/22/2014 16:21 ASSEMBLY DETAILER LISA BAEZA LPN - 08/22/2014 16:21 ASSEMBLY DETAILER LISA BAEZA LPN - 08/22/2014 16:21 ASSEMBLY DETAILER Right Ear Hearing POC Test Grid Right Ear 20 db Right Ear 25 db Right Ear 30 db Right Ear 40 db 500 Hz : Response Response Response Response 1000 Hz : Response Response Response Response 2000 Hz : Response Response Response Response 4000 Hz : Response Response Response Response LISA BAEZA LPN - 08/22/2014 16:21 ASSEMBLY DETAILER LISA BAEZA LPN - 08/22/2014 16:21 ASSEMBLY DETAILER LISA BAEZA LPN - 08/22/2014 16:21 ASSEMBLY DETAILER LISA BAEZA LPN - 08/22/2014 16:21 ASSEMBLY DETAILER Source: [facility] POWERCHART Document Id: [id number] ASSEMBLY DETAILER!44 MBLY DETAILER documented in this encounter Miscellaneous Notes Miscellaneous - Milady Matute M.D. - 08/22/2014 3:38 PM CST Ambulatory Patient Summary [address] [id number] Visit Information Name: TAHMINA COORNADO [facility] Number: [id number] Current Date: 08/22/2014 15:38:24 Physicians Attending Provider: MILADY MATUTE MD Primary Care Provider: PCP, ELSEWHERE TAHMINA [...] appointment detail needed. Your Goals/Additional instructions: Source: [facility] POWERCHART Document Id: [id number] MBLY DETAILER Miscellaneous - Milady Matute M.D. - 08/22/2014 3:38 PM CST Ambulatory Discharge Medication List [address] [place] [id number] Visit Information Name: TAHMINA CORONADO [facility] Number: [id number] Visit Date: 08/22/2014 15:38:23 Attending [...] MD Signed On:22-AUG-2014 15:38:21 Additional Information: Source: [facility] POWERCHART Document Id: [id number] MBLY DETAILER Miscellaneous - Lisa Baeza, L.P.N. - 08/22/2014 3:10 PM CST Pediatric Check Writing Machine Operator Intake/History Pediatric Check Writing Machine Operator Intake/History Entered On: 08/22/2014 15:13 ASSEMBLY DETAILER Performed On: 08/22/2014 15:10 ASSEMBLY DETAILER by LISA BAEZA LPN Intake Chief Complaint [...] kg/m2 LISA BAEZA LPN - 08/22/2014 15:10 ASSEMBLY DETAILER General Info Accompanied By : Mother Information Given By : Patient Languages : [place] Citizen, Mauritian Is Patient Female and 13-50 no hysterectomy : No LISA BAEZA LPN - 08/22/2014 15:10 ASSEMBLY DETAILER Subjective Pain Symptoms : No LISA BAEZA LPN - 08/22/2014 15:10 ASSEMBLY DETAILER Dependent Habits Tobacco Use/Currently Using : No Exposure to Tobacco Smoke : Care provider denies smoking in home Smoking Status : Never smoker LISA BAEZA LPN - 08/22/2014 15:10 ASSEMBLY DETAILER ID Screen Travel Within Last 21 Days : LISA Durant LPN - 08/22/2014 15:10 ASSEMBLY DETAILER Source: [facility] POWERCHART Document Id: [id number] ASSEMBLY DETAILER!31 MBLY DETAILER documented in this encounter Plan of Treatment Not on filedocumented as of this encounter Visit Diagnoses Not on filedocumented in this encounter
--- OUTSIDE RECORDS SUMMARY | 2022-09-08 08:29 | XMS_ITS | Encounter Summary ---
:2002 Author Organization [facility] Address [address] [place] [address] Care Team Providers Name Role Phone Elsewhere, Pcp Primary Care Provider Unavailable Encounter Details Date Type Department Care Team Description 11/19/2014 Historical Ophthalmology [facility] Wisam Narvaez Jr., M.D. [address] [place], [place] [phone] (Wo rk) Social History [...] 1-2 years CDM Reports - EYEGEN Id: [id number] Status: Fnl documented in this encounter Plan of Treatment Not on filedocumented as of this encounter Visit Diagnoses Not on filedocumented in this encounter Care Teams [employer] Assistant Relationship Specialty Start Date End Date Elsewhere, Pcp PCP - General 10/23/19 documented as of this encounter
--- OUTSIDE RECORDS SUMMARY | 2022-09-08 08:29 | XMS_ITS | Encounter Summary ---
:2002 Author Organization [facility] Address [address] [place] [address] Care Team Providers Name Role Phone Unavailable Primary Care Provider Unavailable Encounter Details Date Type Department Care Team Description 11/19/2014 Hospital Encounter HX [facility] Wisam Narvaez Jr., M.D. [address] [place], [place] [phone] (Wo rk) Social History Tobacco Use Types Packs/Day Years Used Date Smoking Tobacco: Never Assessed Sex Assigned at Date Recorded Not on file documented as of this encounter Progress Notes Wisam Narvaez M.D. - 11/19/2014 4:03 PM CST [id number] The documentation for this visit is available in [employer] IMPRESSION/REPORT/PLAN A) hyperopia, mild, excellent vision, no need for glasses at this time P) RTo 1-2 years Wisam Narvaez M.D./kermit Electronically Signed By: WISAM NARVAEZ MD On: 11/23/2014 11:04 AM Source: [facility] MHSDOLBEYNONRADSYS Document Id: [id number] ETING CONSULTANT documented in this encounter Miscellaneous Notes Miscellaneous - Wisam Narvaez M.D. - 11/19/2014 4:55 PM CST Ambulatory Patient Summary [address] [place] [id number] Visit Information Name: TAHMINA CORONADO [facility] Number: [id number] Current Date: 11/19/2014 16:55:24 Physicians Attending Provider: WISAM NARVAEZ MD Primary Care Provider: PCP, RORY TAHMINA [...] appointment detail needed. Your Goals/Additional instructions: Source: [facility] POWERCHART Document Id: [id number] ETING CONSULTANT Miscellaneous - Wisam Narvaez M.D. - 11/19/2014 4:55 PM CST Ambulatory Discharge Medication List [address] [id number] Visit Information Name: TAHMINA CORONADO [facility] Number: [id number] Visit Date: 11/19/2014 16:55:24 Attending Provider: WISAM NARVAEZ MD Primary Care Provider: PCP, TAHMINA PANIAGUA [...] MD Signed On:19-NOV-2014 16:55:21 Additional Information: Source: [facility] POWERCHART Document Id: [id number] ETING CONSULTANT documented in this encounter Plan of Treatment Not on filedocumented as of this encounter Visit Diagnoses Not on filedocumented in this encounter
--- OUTSIDE RECORDS SUMMARY | 2022-09-08 08:29 | XMS_ITS | Encounter Summary ---
:2002 Author Organization [facility] Address [address] [place] [address] Care Team Providers Name Role Phone Unavailable Primary Care Provider Unavailable Encounter Details Date Type Department Care Team Description 11/10/2010 Hospital Encounter HX [facility] PEDI[facility] Mary Matute M.D. [address] [place], [place] [address] (Wo rk) Social History Tobacco [...] (82 lb 10.8 oz) 11/10/2010 4:21 PM ARCHITECTURE DEPARTMENT CHAIR Height 132.5 cm (4' 4.17) 11/10/2010 4:21 PM ARCHITECTURE DEPARTMENT CHAIR Body Mass Index 21.36 11/10/2010 4:21 PM ARCHITECTURE DEPARTMENT CHAIR Body Mass Index Percentile 97.14 % 11/10/2010 4:21 PM CS T Growth Chart: CDC (Boys, 2-20 Years) documented in this encounter H&P Notes Milady Matute M.D. - 11/10/2010 12:00 AM CST [id number] CHIEF COMPLAINT/ REASON FOR VISIT 10-year-old well-child visit. HISTORY OF PRESENT ILLNESS Kodi is 10 years old and here with his mother and pit furnace operator, Yudi, for a checkup. Mother wonders about [...] dye free lotion all over the body. KSAnnie/gracielat Signed Milady Matute M.D. Scheduling Agent Electronically Signed By: MILADY MATUTE MD On: 11/17/2010 03:08 [facility] Document Id: [id number] ITECTURE DEPARTMENT CHAIR documented in this encounter Procedure Notes Poppy Evans - 11/11/2010 10:21 AM CST Hearing Point of Care Testing - Audiometer Hearing Point of Care Testing - Audiometer Entered On: 11/11/2010 10:23 ARCHITECTURE DEPARTMENT CHAIR Performed On: 11/11/2010 10:21 ARCHITECTURE DEPARTMENT CHAIR by POPPY REIS Hearing Point of Care Testing - Audiometer Left Ear Hearing POC Test Grid Left Ear 20 db Left Ear 25 db Left Ear 30 db Left Ear 40 db 500 Hz: Response Response Response Response 1000 Hz: Response Response Response Response 2000 Hz: Response Response Response Response 4000 Hz: Response Response Response Response POPPY REIS - 11/11/2010 10:21 ARCHITECTURE DEPARTMENT CHAIR POPPY REIS - 11/11/2010 10:21 ARCHITECTURE DEPARTMENT CHAIR POPPY REIS - 11/11/2010 10:21 ARCHITECTURE DEPARTMENT CHAIR POPPY REIS - 11/11/2010 10:21 ARCHITECTURE DEPARTMENT CHAIR Right Ear Hearing POC Test Grid Right Ear 20 db Right Ear 25 db Right Ear 30 db Right Ear 40 db 500 Hz: Response Response Response Response 1000 Hz: Response Response Response Response 2000 Hz: Response Response Response Response 4000 Hz: Response Response Response Response POPPY REIS - 11/11/2010 10:21 ARCHITECTURE DEPARTMENT CHAIR POPPY REIS - 11/11/2010 10:21 ARCHITECTURE DEPARTMENT CHAIR POPPY REIS - 11/11/2010 10:21 ARCHITECTURE DEPARTMENT CHAIR POPPY REIS - 11/11/2010 10:21 ARCHITECTURE DEPARTMENT CHAIR Source: [facility] POWERCHART Document Id: [id number] ARCHITECTURE DEPARTMENT CHAIR!44 ITECTURE DEPARTMENT CHAIR documented in this encounter Miscellaneous Notes Miscellaneous - Poppy Evans - 11/10/2010 4:21 PM CST Pediatric Manager Rfid Intake/History Pediatric Manager Rfid Intake/History Entered On: 11/10/2010 16:22 ARCHITECTURE DEPARTMENT CHAIR Performed On: 11/10/2010 16:21 ARCHITECTURE DEPARTMENT CHAIR by POPPY REIS Intake Chief Complaint: well [...] Index: 21kg/m2 POPPY REIS - 11/10/2010 16:21 ARCHITECTURE DEPARTMENT CHAIR Subjective Pain Symptoms: No POPPY REIS - 11/10/2010 16:21 ARCHITECTURE DEPARTMENT CHAIR Dependent Habits Tobacco Use/Currently Using: No POPPY REIS - 11/10/2010 16:21 ARCHITECTURE DEPARTMENT CHAIR Allergy Allergies (Active) NKA Estimated Onset Date: Unspecified ; Created By: POPPY REIS; Reaction Status: Active ; Category: Drug ; Substance: NKA ; Type: Allergy ; Updated By: POPPY REIS; Reviewed Date: 11/10/201016:21 ARCHITECTURE DEPARTMENT CHAIR Source: [facility] POWERCHART Document Id: [id number] ARCHITECTURE DEPARTMENT CHAIR!19 ITECTURE DEPARTMENT CHAIR documented in this encounter Plan of Treatment Not on filedocumented as of this encounter Visit Diagnoses Not on filedocumented in this encounter
--- OUTSIDE RECORDS SUMMARY | 2022-09-08 08:29 | XMS_ITS | Encounter Summary ---
:2002 Author Organization [facility] Address [address] [place] [address] Care Team Providers Name Role Phone Unavailable Primary Care Provider Unavailable Encounter Details Date Type Department Care Team Description 11/17/2010 Hospital Encounter HX [facility] Minesh Matute M.D. [address] [place], [place] [address] (Wo rk) Social History Tobacco Use Types Packs/Day Years Used Date Smoking Tobacco: Never Assessed Sex Assigned at Date Recorded Not on file documented as of this encounter Plan of Treatment Not on filedocumented as of this encounter Visit Diagnoses Not on filedocumented in this encounter
--- OUTSIDE RECORDS SUMMARY | 2022-09-08 08:29 | XMS_ITS | Encounter Summary ---
:2002 Author Organization [facility] Address [address] [place] [address] Care Team Providers Name Role Phone Unavailable Primary Care Provider Unavailable Encounter Details Date Type Department Care Team Description 12/19/2010 Hospital Encounter HX [facility] PEDI[facility] Mary Matute M.D. [address] [place], [place] [address] (Wo rk) Social History Tobacco [...] Matute M.D. - 12/19/2010 12:00 AM CDT [id number] CHIEF COMPLAINT/ REASON FOR VISIT Dry skin HISTORY OF PRESENT ILLNESS Tahmina is 10 years old and here with his mother and spanish moss picker, Yudi. He has had problems with dry [...] a row. KSL/glt Signed Milady Matute M.D. Tapper Operator Electronically Signed By: MILADY MATUTE MD On: 12/26/2010 03:39 Source: [facility] MHSDOLBEYNONRADSYS Document Id: [id number] documented in this encounter Miscellaneous Notes Miscellaneous - Milady Matute M.D. - 12/19/2010 3:56 PM CDT Ambulatory Patient Summary [address] [id number] Visit Information Name: TAHMINA CORONADO Current Date: [...] No Appointments found Your Goals/Additional instructions: Source: [facility] [employer] Document Id: [id number] Electronically signed by [facility] Security Specialist [id number] at 03/07/2017 6:12 PM CDT Miscellaneous - Milady Matute M.D. - 12/19/2010 3:56 PM CDT [place] [address] Visit Information Name: TAHMINA CORONADO Current Date: 12/19/2010 15:56:10 Primary Care Provider: MILADY MATUTE MD TAHMINA CORONADO has been given the following [...] to the patient and/or family, guardian/caregiver. Source: [employer] Document Id: [id number] Electronically signed by Fel[facility] Security Specialist [id number] at 03/07/2017 6:12 PM CDT Miscellaneous - Poppy Evans - 12/19/2010 3:41 PM CDT Pediatric Orchard Manager Intake/History Pediatric Orchard Manager Intake/History Entered On: 12/19/2010 15:41 CDT Performed [...] 15:41 CDT Subjective Pain Symptoms: No POPPY RESI - 12/19/2010 15:41 CDT Dependent Habits Tobacco Use/Currently Using: No POPPY REIS - 12/19/2010 15:41 CDT Allergy Allergies (Active) NKA Estimated Onset Date: Unspecified ; Created By: POPPY REIS; Reaction Status: Active ; Category: Drug ; Substance: NKA ; Type: Allergy ; Updated By: POPPY REIS; Reviewed Date: 12/19/201015:41 CDT Source: [facility] [employer] Document Id: [id number] CDT!16 documented in this encounter Plan of Treatment Not on filedocumented as of this encounter Visit Diagnoses Not on filedocumented in this encounter
--- OUTSIDE RECORDS SUMMARY | 2022-09-08 08:29 | XMS_ITS | Encounter Summary ---
:2000 Author Organization [facility] Address [address] [place] [address] Care Team Providers Name Role Phone Unavailable Primary Care Provider Unavailable Encounter Details Date Type Department Care Team Description 12/04/2016 Hospital Encounter HX [facility] Godfrey Moore M.D. [phone] (Wo rk) Social History Tobacco Use Types [...] (143 lb 4.8 oz) 12/04/2016 3:40 PM SANDWICH PEDDLER Height 170.5 cm (5' 7.13) 12/04/2016 3:40 PM SANDWICH PEDDLER Body Mass Index 22.36 12/04/2016 3:40 PM SANDWICH PEDDLER Body Mass Index Percentile 82.98 % 12/04/2016 3:40 PM CS T Growth Chart: [facility] (Boys, 2-20 Years) documented in this encounter H&P Notes Marilynn Moore M.D. - 12/04/2016 8:52 PM CST Clinic Full Note CHIEF COMPLAINT/REASON FOR VISIT wellchild HISTORY OF PRESENT ILLNESS Kodi is here with his mother. He is scheduled for a well teen check. However, from a mental health standpoint he is not at all well. Parent is Sudanese speaking, little or no Peruvian. A phone or digital candle maker was used for the visit. He was seen in the Emergency room in [place] 3 weeks ago (November 12) stating that he wanted to kill himself --wanted to drown himself. It sounds as though a few days prior to that he was hospitalized in [place] for similar complaints. He was then hospitalized [...] WednesdayDecember 07 with a doctor at the [facility] prior to him seeing their psychologist. Mother has an appointment with the principal WednesdayDecember 08. He is like his brother according to Koid. Brother is Matthew, age 16. Kodi states [...] He was seeing Tyrone, a therapist at [facility] in the past in 2014. Mother [...] normal. Romberg negative. Normal tone. IMPRESSION/REPORT/PLAN Exam [facility] Electric Spot Welder ([facility]) Multisystem 29 Day-17 Year Normal 1. [...] MOORE MD On: 12/29/2016 07:18 PM Source: [employer] Document Id: [id number] documented in this encounter Procedure Notes Radha Rivera L.P.N. - 12/04/2016 4:13 PM CST Vision Testing Vision Testing Entered On: 12/04/2016 16:13 SANDWICH PEDDLER Performed On: 12/04/2016 16:13 SANDWICH PEDDLER by RADHA RIVERA LPN Vision Testing Corrective Lenses : None Eye, Right w/o Correction : 20/20 Eye, Left w/o Correction : 20/20 RADHA RIVERA LPN - 12/04/2016 16:13 SANDWICH PEDDLER Source: [employer] Document Id: [id number] SANDWICH PEDDLER!5 WICH PEDDLER Radha Rivera L.P.N. - 12/04/2016 4:13 PM CST Hearing Point of Care Testing - Audiometer Hearing Point of Care Testing - Audiometer Entered On: 12/04/2016 16:14 SANDWICH PEDDLER Performed On: 12/04/2016 16:13 SANDWICH PEDDLER by RADHA RIVERA LPN Hearing Point of [...] Response RADHA RIVERA LPN - 12/04/2016 16:13 SANDWICH PEDDLER NICOLERADHA LPN - 12/04/2016 16:13 CSTDIANAVIRGILIORADHA LPN - 12/04/2016 16:13 SANDWICH PEDDLER NICOLERADHA LPN - 12/04/2016 16:13 SANDWICH PEDDLER Left Ear 40 db 500 Hz : Response 1000 Hz : Response 2000 Hz : Response 4000 Hz : Response NICOLERADHA LPN - 12/04/2016 16:13 SANDWICH PEDDLER Right Ear Hearing POC Test Grid Right Ear 20 db Right Ear 25 db Right Ear 30 db Right Ear 35 db 500 Hz : Response Response Response Response 1000 Hz : Response Response Response Response 2000 Hz : Response Response Response Response 4000 Hz : Response Response Response Response NICOLERADHA LPN - 12/04/2016 16:13 SANDWICH PEDDLER NICOLERADHAE CONSTRUCTION EQUIPMENT OVERHAULER - 12/04/2016 16:13 CSTRADHA RIVERA LPN - 12/04/2016 16:13 SANDWICH PEDDLER RADHA RIVERA LPN - 12/04/2016 16:13 SANDWICH PEDDLER Right Ear 40 db 500 Hz : Response 1000 Hz : Response 2000 Hz : Response 4000 Hz : Response NICOLERADHA LPN - 12/04/2016 16:13 SANDWICH PEDDLER Source: [employer] Document Id: [id number] SANDWICH PEDDLER!54 WICH PEDDLER documented in this encounter Miscellaneous Notes Miscellaneous - Radha Rivera L.PRussellN. - 12/04/2016 4:02 PM CST PHQ-9 - Teens PHQ-9 - Teens Entered On: 12/04/2016 16:03 SANDWICH PEDDLER Performed On: 12/04/2016 16:02 SANDWICH PEDDLER by RADHA RIVERA LPN PHQ-9 - Teens [...] No RADHA RIVERA LPN - 12/04/2016 16:02 SANDWICH PEDDLER Source: [facility] [employer] Document Id: [id number] SANDWICH PEDDLER!16 WICH PEDDLER Miscellaneous - Radha Rivera L.P.NRussell - 12/04/2016 3:40 PM CST Pediatric Account Contact Associate Intake/History Pediatric Account Contact Associate Intake/History Entered On: 12/04/2016 15:41 SANDWICH PEDDLER Performed On: 12/04/2016 15:40 SANDWICH PEDDLER by RADHA RIVERA LPN Intake Chief Complaint [...] kg/m2 RADHA RIVERA LPN - 12/04/2016 15:40 SANDWICH PEDDLER General Info Languages : Peruvian, Sudanese Is Patient Female and 13-50 no hysterectomy : No RADHA RIVERA LPN - 12/04/2016 15:40 SANDWICH PEDDLER Subjective Pain Symptoms : No RADHA RIVERA LPN - 12/04/2016 15:40 SANDWICH PEDDLER Dependent Habits Exposure to Tobacco Smoke : Care provider denies smoking in home Smoking Status : Never smoker Tobacco 2A : No Tobacco Use/Currently Using : No Tobacco Use/Last 30 Days : No Tobacco Use/Last 12 months : No RADHA RIVERA LPN - 12/04/2016 15:40 SANDWICH PEDDLER Source: [facility] [employer] Document Id: [id number] SANDWICH PEDDLER!30 WICH PEDDLER documented in this encounter Plan of Treatment Not on filedocumented as of this encounter Visit Diagnoses Not on filedocumented in this encounter Additional Health Concerns Assessment Noted Time PHQ-9 Depression Total Score: 21 12/04/2016 4:02 PM CS T documented as of this encounter
--- OUTSIDE RECORDS SUMMARY | 2022-09-08 08:29 | XMS_ITS | Encounter Summary ---
:2000 Author Organization [facility] Address [address] [place] [address] Care Team Providers Name Role Phone Unavailable Primary Care Provider Unavailable Encounter Details Date Type Department Care Team Description 12/01/2010 Hospital Encounter HX [facility] FB PEDIATRIC Mary Matute M.D. [address] [place], [place] [address] (Wo rk) Social History Tobacco [...] (81 lb 2.1 oz) 12/01/2010 3:18 PM MOLD PREPARER Height - - Body Mass Index - - documented in this encounter Progress Notes Milady Matute M.D. - 12/01/2010 12:00 AM CST [id number] CHIEF COMPLAINT/ REASON FOR VISIT Suture removal HISTORY OF PRESENT ILLNESS Tahmina 10 years old and here with his mother, sister and cardiothoracic surgeon, Yudi. He presented to the Emergency Department [...] as needed. KSL/glt Signed Milady Matute M.D. Perianesthesia Nurse Electronically Signed By: MILADY MATUTE MD On: 12/04/2010 09:48 Source: [facility] MHSDOLBEYNONRADSYS Document Id: [id number] PREPARER documented in this encounter Miscellaneous Notes Miscellaneous - Milady Matute M.D. - 12/01/2010 3:39 PM CST Ambulatory Patient Summary [address] [address] Visit Information Name: TAHMINA CORONADO Current Date: 12/01/2010 15:39:23 Primary Care Provider: MILADY MATUTE MD [id number] Your Medications Here is a list of [...] 16:15 FBHB Lab Your Goals/Additional instructions: [facility] P[facility] Document Id: [id number] Miscellaneous - Poppy Evans - 12/01/2010 3:18 PM CST Pediatric Test Rider Intake/History Pediatric Test Rider Intake/History Entered On: 12/01/2010 15:19 MOLD PREPARER Performed On: 12/01/2010 15:18 MOLD PREPARER by POPPY REIS Intake Ambulatory Intake Additional Information: L index at base, 4 stitches. 1 1/2 cm MILADY MATUTE MD - 12/01/2010 15:28 MOLD PREPARER Chief Complaint: stitch removal Temperature Core: 36.6C(Converted to: 97.9DegF) Apical Heart Rate: 88/min Respiratory Rate: 22/min Systolic Blood Pressure: 94mmHg Diastolic Blood Pressure: 56mmHg NIBP Mean: 69mmHg BP Location: Right upper extremity Actual Weight: 36.800kg(Converted to: 81lb 2oz) Dosing Weight Clinic: 36.80kg POPPY REIS - 12/01/2010 15:18 MOLD PREPARER Subjective Pain Symptoms: POPPY Cifuentes - 12/01/2010 15:18 MOLD PREPARER Dependent Habits Tobacco Use/Currently Using: No POPPY REIS - 12/01/2010 15:18 MOLD PREPARER Allergy Allergies (Active) NKA Estimated Onset Date: Unspecified ; Created By: POPPY REIS; Reaction Status: Active ; Category: Drug ; Substance: NKA ; Type: Allergy ; Updated By: POPPY REIS; Reviewed Date: 11/10/201016:21 MOLD PREPARER [facility] tweens ltdCHART Document Id: [id number] MOLD PREPARER!3 PREPARER documented in this encounter Plan of Treatment Not on filedocumented as of this encounter Visit Diagnoses Not on filedocumented in this encounter
--- OUTSIDE RECORDS SUMMARY | 2022-09-08 08:29 | XMS_ITS | Encounter Summary ---
:2002 Author Organization [facility] Address [address] [place] [address] Care Team Providers Name Role Phone Unavailable Primary Care Provider Unavailable Encounter Details Date Type Department Care Team Description 05/05/2010 Hospital Encounter HX [facility] PEDIATRIC Mary Matute M.D. [address] [place], [place] [address] (Wo rk) Social History Tobacco [...] (72 lb 8.5 oz) 11/28/2009 8:04 AM MACHINIST HELPER MARINE Height 126 cm (4' 1.61) 11/28/2009 8:04 AM MACHINIST HELPER MARINE Body Mass Index 20.72 11/28/2009 8:04 AM MACHINIST HELPER MARINE Body Mass Index Percentile 97.75 % 11/28/2009 8:04 AM CS T Growth Chart: [facility] (Boys, 2-20 Years) documented in this encounter Procedure Notes Poppy Evans - 05/05/2010 9:40 AM CDT PPD Reading PPD Reading Entered On: 05/05/2010 9:40 CDT Performed On: 05/05/2010 9:40 CDT by POPPY REIS PPD Reading MM of Induration: 0mm PPD Interpretation: Negative POPPY REIS - 05/05/2010 9:40 CDT Source: [facility] POWERCHART Document Id: [id number] CDT!4 documented in this encounter Miscellaneous Notes Miscellaneous - Poppy Evans - 11/28/2009 8:04 AM CST Pediatric Growth Pediatric Growth Entered On: 05/05/2010 8:05 CDT Performed On: 11/28/2009 8:04 MACHINIST HELPER MARINE by POPPY REIS Pediatric Growth Height: 126.00cm(Converted to: 4ft 2in, 4.13ft, 49.61in) Actual Weight: 32.900kg(Converted to: 72lb 9oz, 72.532lb, 1,160.513oz) Body Mass Index: 21kg/m2 POPPY REIS - 05/05/2010 8:04 CDT Source: [employer] Document Id: [id number] CDT!5 Poppy Jackson - 01/11/2009 8:05 AM CDT Pediatric Growth Pediatric Growth Entered On: 05/05/2010 8:05 CDT Performed On: 01/11/2009 8:05 CDT by POPPY REIS Pediatric Growth Height: 119.50cm(Converted to: 3ft 11in, 3.92ft, 47.05in) Actual Weight: 29.100kg(Converted to: 64lb 2oz, 64.155lb, 1,026.472oz) Body Mass Index: 20kg/m2 POPPY REIS - 05/05/2010 8:05 CDT Source: [employer] Document Id: [id number] CDT!5 Poppy Jackson - 01/10/2008 8:05 AM CDT Pediatric Growth Pediatric Growth Entered On: 05/05/2010 8:05 CDT Performed On: 01/10/2008 8:05 CDT by POPPY REIS Pediatric Growth Height: 114.00cm(Converted to: 3ft 9in, 3.74ft, 44.88in) Actual Weight: 24.300kg(Converted to: 53lb 9oz, 53.572lb, 857.157oz) Body Mass Index: 19kg/m2 POPPY REIS - 05/05/2010 8:05 CDT Source: [facility] [employer] Document Id: [id number] CDT!5 documented in this encounter Plan of Treatment Not on filedocumented as of this encounter Visit Diagnoses Not on filedocumented in this encounter
--- OUTSIDE RECORDS SUMMARY | 2022-09-08 08:29 | XMS_ITS | Encounter Summary ---
:2002 Author Organization [facility] Address [address] [place] [address] Care Team Providers Name Role Phone Unavailable Primary Care Provider Unavailable Encounter Details Date Type Department Care Team Description 12/16/2009 Hospital [facility] [address] [place] [address] (Wo rk) Social History Tobacco Use Types Packs/Day Years Used Date Smoking Tobacco: Never Assessed Sex Assigned at Date Recorded Not on file documented as of this encounter Plan of Treatment Not on filedocumented as of this encounter Visit Diagnoses Not on filedocumented in this encounter
--- OUTSIDE RECORDS SUMMARY | 2022-09-08 08:29 | XMS_ITS | Encounter Summary ---
:2002 Author Organization [facility] Address [address] [place] [address] Care Team Providers Name Role Phone Unavailable Primary Care Provider Unavailable Encounter Details Date Type Department Care Team Description 05/02/2010 Hospital Encounter HX [facility] FB PEDIATRIC Mary Matute M.D. [address] [place], [place] [address] (Wo rk) Social History Tobacco Use Types Packs/Day Years Used Date Smoking Tobacco: Never Assessed Sex Assigned at Date Recorded Not on file documented as of this encounter Plan of Treatment Not on filedocumented as of this encounter Visit Diagnoses Not on filedocumented in this encounter
--- OUTSIDE RECORDS SUMMARY | 2022-09-08 08:29 | XMS_ITS | Encounter Summary ---
:2002 Author Organization [facility] Address [address] [place] [address] Care Team Providers Name Role Phone Unavailable Primary Care Provider Unavailable Encounter Details Date Type Department Care Team Description 06/03/2015 Hospital Encounter HX [facility] XPRESSCAR Samantha Santos APRN, C.N.P., M.S.N. [address] [place] [address] (Wo rk) Social History Tobacco Use Types [...] this encounter Progress Notes Samantha Santos APRN, HELP DESK INTERN - 06/03/2015 6:34 PM CDT [id number] CHIEF COMPLAINT/REASON FOR VISIT Infected insect bites. [...] understanding of all these instructions. Scot Anne -C./rcuz Electronically Signed By: SAMANTHA SANTOS CNP On: 06/04/2015 03:07 PM Source: [facility] MHSDOLBEYNONRADSYS Document Id: [id number] documented in this encounter Nursing Notes Samantha [...] the cold source and the skin). ?? [phone] Samantha Fischer, [address] [place] [address], [place] [address]. All rights reserved. This information is not intended as a substitute for professional medical care. Always follow your healthcare professional's instructions. This document has images extracted. Please consider using [employer] for all your patient education needs. Source: [facility] POWERCHART Document Id: [id number] Samantha Santos APRN, CNP - 06/03/2015 7:27 PM CDT Ambulatory Patient Education The following Patient Education Materials have been given to the patient: Patient Education Materials: Source: [facility] POWERCHART Document Id: [id number] documented in this encounter Miscellaneous Notes Miscellaneous - Samantha Santos APRN, CNP - 06/03/2015 7:27 PM CDT Ambulatory Patient Summary [facility] [address] [place] [phone] Visit Information Name: SARTHAKTAHMINA [facility] Number: [id number] Current Date: 06/03/2015 19:27:48 [...] day x 7 day(s) New Routed to [facility] [address] [place], [place] [id number] Stop Taking the Following Medications: Medication list [...] the cold source and the skin). ?? [phone] Samantha [facility], [address] [place] [address], [place] [address]. All rights reserved. This information is not [...] if you dont have one. Go to [email or web address] and click on Create Your Account. Then, follow the directions to complete the online form. Youll be asked for your [facility] number which you can find at the top of this document. Your Goals/Additional instructions: This document has images extracted. Please consider using [employer] for all your patient education needs. Source: [facility] POWERCHART Document Id: [id number] Miscellaneous - Samantha Santos APRN, CNP - 06/03/2015 7:27 PM CDT Ambulatory Discharge Medication List [facility] [address] [place] [phone] Visit Information Name: TAHMINA CORONADO [facility] Number: [id number] Visit Date: 06/03/2015 19:27:47 [...] day x 7 day(s) New Routed to [address] [id number] Stop Taking the Following Medications: Medication list [...] Signed By: Signed On: Additional Information: Source: [employer] Document Id: [id number] Miscellaneous - Julieta Scanlon, C.M.A. - 06/03/2015 6:55 PM CDT Ambulatory Vitals Height Weight Ambulatory Vitals Height Weight Entered On: 06/03/2015 18:56 CDT Performed On: 06/03/2015 18:55 CDT by JULIETA SCANLON [facility] Vitals/Ht/Wt Systolic Blood Pressure : 135 mmHg (>HHI) Diastolic Blood Pressure : 73 mmHg NIBP Mean : 94 mmHg BP Location : Right upper extremity Blood Pressure Cuff Size : Regular JULIETA SCANLON [facility] - 06/03/2015 18:55 CDT [facility] Document Id: [id number] CDT!7 Miscellaneous - Julieta Scanlon, C.M.ARussell - 06/03/2015 6:52 PM CDT Pediatric Master Cook Intake/History Pediatric Master Cook Intake/History Entered On: 06/03/2015 18:54 CDT Performed On: 06/03/2015 18:52 CDT by JULIETA SCANLON [facility] Intake Chief Complaint : bug/flea bites on [...] Weight Clinic : 57.85 kg JULIETA SCANLON [facility] - 06/03/2015 18:52 CDT General Info Languages : Irish, Mexican Is Patient Female and 13-50 no hysterectomy : No JULIETA SCANLON CMA - 06/03/2015 18:52 CDT Subjective Pain Symptoms : No JULIETA SCANLON CMA - 06/03/2015 18:52 CDT Dependent Habits Tobacco Use/Currently Using : No Exposure to Tobacco Smoke : Care provider denies smoking in home Smoking Status : Never smoker JULIETA SCANLON CMA - 06/03/2015 18:52 CDT [facility] Document Id: [id number] CDT!22 documented in this encounter Plan of Treatment Not on filedocumented as of this encounter Visit Diagnoses Not on filedocumented in this encounter
--- OUTSIDE RECORDS SUMMARY | 2022-09-08 08:29 | XMS_ITS | Encounter Summary ---
:[address] [facility] Address [address] [place] [address] Care Team Providers Name Role Phone Unavailable Primary Care Provider Unavailable Encounter Details Date Type Department Care Team Description 11/17/2010 Hospital Encounter HX [facility] LAB Minesh Matute M.D. [address] [place], [place] [address] (Wo rk) Social History Tobacco Use Types Packs/Day Years Used Date Smoking Tobacco: Never Assessed Sex Assigned at Date Recorded Not on file documented as of this encounter Miscellaneous Notes Miscellaneous - Milady Matute M.D. - 11/18/2010 10:11 AM CST Results Notification Document Contains Addenda Addendum by POPPY REIS on 18 November 2010 10:15:10 LENS INSERTER Called Yudi and informed her, she will contact family and schedule an appointment. From: MILADY MATUTE MD To: POPPY REIS; Sent: 11/18/2010 10:11:57 LENS INSERTER Show up: 11/18/2010 10:11:00 LENS INSERTER Subject: Results Notification Please call counselor dormitory to notify mom. Mariee's TSH is at the very upper limits of normal. I recommend recheck with an additional test to look for antibodies to thyroid in 1 month. This can be a lab only appointment. It is non-fasting. Results: 11/17/2010 08:27 TSH, Sensitive-Atlantic 5.0 MIU/L 11/17/2010 08:27 T4 Free-Guerrier 1.2 ng/dL Source: [facility] [employer] Document Id: [id number] Electronically signed by Conversion, [facility] [employer] [id number] at 03/07/2017 12:01 PM CDT Miscellaneous - Milady Matute M.D. - 11/17/2010 12:23 PM CST Results Notification Document Contains Addenda Addendum by POPPY REIS on 17 November 2010 13:05:37 LENS INSERTER Spoke to Yudi, she will call mom. From: MILADY MATUTE MD To: POPPY REIS; Sent: 11/17/2010 12:23:41 LENS INSERTER Show up: 11/17/2010 12:23:00 LENS INSERTER Subject: Results Notification Call counselor dormitory to let mom know that Kodi's labs are all normal. No diabetes, no liver disease, cholesterol in the healthy range. Results: 11/17/2010 08:27 AST 20 unit/L 11/17/2010 08:27 ALT 17 unit/L 11/17/2010 08:27 Hgb A1c 5.4 % Source: [facility] Document Id: [id number] Electronically signed by Conversion, [facility] [employer] [id number] at 03/07/2017 12:01 PM CDT documented in this encounter Plan of Treatment Not on filedocumented as of this encounter Visit Diagnoses Not on filedocumented in this encounter
--- OUTSIDE RECORDS SUMMARY | 2022-09-08 08:29 | XMS_ITS | Encounter Summary ---
:2002 Author Organization [facility] Address [address] [place] [address] Care Team Providers Name Role Phone Elsewhere, Pcp Primary Care Provider Unavailable Reason for Visit Reason Comments Allergic Reaction Encounter Details Date Type Department Care Team Description 01/11/2021 - Emergency [facility] ED Rash (Primary Dx); 01/12/2021 [address] [facility] [place] [address] [facility] [phone] Social History Tobacco Use Types Packs/Day Years [...] documented as of this encounter Care Teams Prescriptionist Relationship Specialty Start Date End Date Elsewhere, Pcp PCP - General 10/23/19 documented as of this encounter
--- OUTSIDE RECORDS SUMMARY | 2022-09-08 08:29 | XMS_ITS | Encounter Summary ---
:2002 Author Organization [facility] Address [address] [place] [address] Care Team Providers Name Role Phone Marilynn [...] documented as of this encounter Care Teams Practical Nursing Teacher Relationship Specialty Start Date End Date Marilynn Moore M.D. PCP - General 03/18/17 10/22/19 documented as of this encounter
== END 2022-09-08 07:18 | disposition home or self-care (01) ==
LOC: NFLDREF 08:19
PROVIDERS: PCP Family Medicine; Visit Provider Family Medicine
DX: E03.9 Hypothyroidism, unspecified (principal)
CPT/HCPCS: 84443

== ENCOUNTER 2022-12-07 08:28 | Outpatient (CLI) | payer BC, SELFPAY | END 2022-12-07 08:29 | disposition home or self-care (01) | LOC: NFLDREF 12-10 10:22 | PROVIDERS: PCP Family Medicine; Referring Provider Family Medicine; Visit Provider Family Medicine | DX: E03.9 Hypothyroidism, unspecified (principal) | CPT/HCPCS: 84439; 84443 ==

== ENCOUNTER 2023-01-27 19:27 | Emergency (ER) | payer BC, SELFPAY ==
--- NOTE | 2023-01-27 19:52 | ED.NURSE ---
brought patient back to triage room. asked patient is he had any thoughts of hurting himself or others and he said no. he stated my parents brought me here. pt. stated he was ok and wanted to go home with parents. patient left with parents. pt. did not sign the refusal of services prior to leaving ER.
== END 2023-01-27 20:11 | disposition left against medical advice (07) ==
PROVIDERS: Emergency Provider Internal Medicine; PCP Family Medicine
DX: Z53.29 Procedure and treatment not carried out because of patient's decision for other reasons (principal)